=== PATIENT | female | born 1955 | race Caucasian/White ===

== ENCOUNTER → 2019-09-11 | Day surgery (SDC) | payer OTHER ==
--- NOTE | 2019-09-11 10:31 | RAD REPORT ---
EXAM DESCRIPTION: US - Follow Up Breast Axilla Ltd - 09/11/2019 10:14 am CLINICAL HISTORY: R92.8 COMPARISON: Follow Up Breast Axilla Comp dated 09/02/2019 FINDINGS: The patient was initially scheduled for ultrasound-guided core biopsy of the right breast. Real-time radiologist directed sonographic assessment of the area of interest was performed as part o f pre-procedure planning. The small lesion measuring 3 x 3 mm in the 6 o'clock position of the right breast was localized. The lesion appeared to connect with adjacent ductal elements is favored to represent an area of dilated d uctal elements rather than a mass. Given its small size, ultrasound-guided core biopsy of this time w as deferred. A six-month follow-up right breast ultrasound is recommended for the patient. The findings and recommendation were discussed in person in detail with the patient. IMPRESSION: Small area of dilated ducts suspected 6 o'clock right breast warrants six-month follow-u p right breast ultrasound monitoring. Ultrasound-guided core biopsy was deferred at the current time. BI-RAD: 3, probably benign The findings were discussed with Dr. Mckeon 11 a.m. 09/11/2019 by telephone. ResultCode: PB6
== END ==
LOC: DS 09:14
PROVIDERS: ATTEND Family Medicine
DX: R92.8 Other abnormal and inconclusive findings on diagnostic imaging of breast (principal); Z53.8 Procedure and treatment not carried out for other reasons
CPT/HCPCS: 76642

== ENCOUNTER 2021-03-02 08:25 | Day surgery (SDC) | payer OTHER ==
[2021-03-02] MEDS ORDERED: CELECOXIB 100 MG CAPSULE ONE (10:09)
[2021-03-02] MEDS ORDERED: ACETAMINOPHEN 500 MG TAB ONE (10:10)
[2021-03-02] MEDS ORDERED: MIDAZOLAM HCL 2 MG/2 ML INJ ONE (11:46)
[2021-03-02] MEDS ORDERED: propofoL 200 MG/20 ML VIAL IV ONE (11:46)
[2021-03-02] MEDS ORDERED: LIDOCAINE 2% MPF 5 ML VIAL ONE (11:46)
[2021-03-02] MEDS ORDERED: FENTANYL CITR 100 MCG/2 ML ONE (11:46)
[2021-03-02] MEDS ORDERED: ONDANSETRON 4 MG/2 ML VIAL ONE (13:13)
[2021-03-02] MEDS ORDERED: dexAMETHasone 10 MG/ML VIAL ONE (13:13)
[2021-03-02] MEDS ORDERED: NA CHLORIDE 0.9% 1,000 ML ONE (13:33)
[2021-03-02] MEDS ORDERED: LIDOCAINE 1% W/EPI 1:100,000 MDV 20 ML VIAL ONE (13:33)
[2021-03-02] MEDS ORDERED: KETOROLAC 30 MG/ML INJ ONE (14:02)
[2021-03-02 14:14] VITALS: BP 121/81; TEMP 97.2; O2SAT 95
--- NOTE | 2021-03-03 00:22 | OP ---
Date of Procedure: 03/02/2021 Surgeon: Dipika Lane MD Preoperative Diagnosis: Postmenopausal bleeding. Postoperative Diagnosis: Postmenopausal bleeding and thickened endometrial tissue. Procedure Performed: Hysteroscopy, dilatation and curettage. Anesthesia: MAC. Specimens: Endometrial curettings. Complications: No complications. Drains: No drains. Condition: Stable. Findings: Endometrial tissue abnormal, irregular in the cavity, especially posterior lateral wall, l ower part of the endometrial canal. Adequate tissue was sampled. Did not need to use any devices to perform this. This was done with a #0 curette. Indication: The patient is a 65-year-old female who presented with postmenopausal bleeding and trans vaginal ultrasound showed thickened endometrial heterogeneous tissue. I had recommended endometrial sampling to rule out atypia or malignancy and the patient was consented for diagnostic hysteroscopy a nd D and C. If there was a polyp, polypectomy or myomectomy will be performed using the MyoSure Lite . Procedure In Detail: After consenting her, she was brought to the OR, placed in supine fashion on th e operating table. MAC was given. Then, she was placed in a dorsal lithotomy position. Pelvic exam was performed. Uterus was anteflexed. Prep x3 with Betadine was done. Anterior lip was grasped with 2 Allis clamps. Diagnostic SlimLine h ysteroscope was used with 30-degree lens and normal saline to perform a direct hysteroscopy through t he cervical canal into the uterine canal. On endometrial visualization, there was a thickened irregu lar tissue on the left lateral and posterior ibrahim of the endometrial canal. Once the fundus was vis ualized, the scope was pulled out. Endometrial curettings were performed with a #0 curette. The cer vix was dilated to 12-[place]. Adequate tissue was obtained. The specimen was handed for permanent p athology. All instruments were removed. Instrument, needle, and sponge counts were correct at the e nd of the case. The patient tolerated the procedure well. She has 1 week followup appointment for r esults with us. She has been given postop instructions and we will discuss the findings with her sherman hensley. DINAH/NAWAF Voice ID: [id number] Report ID: [id number]
== END 2021-03-02 14:40 | disposition home or self-care (01) ==
LOC: OR 08:25
PROVIDERS: ATTEND Obstetrics & Gynecology
PROC: 0UJD8ZZ Inspection of Uterus and Cervix, Via Natural or Artificial Opening Endoscopic (ICD-10-PCS; 2021-03-02)
PROC: 0UDB7ZX Extraction of Endometrium, Via Natural or Artificial Opening, Diagnostic (ICD-10-PCS; principal; 2021-03-02 09:30)
DX: N95.0 Postmenopausal bleeding (principal); R10.2 Pelvic and perineal pain; N80.9 Endometriosis, unspecified; E78.5 Hyperlipidemia, unspecified; I48.91 Unspecified atrial fibrillation; Z20.822 Contact with and (suspected) exposure to COVID-19
CPT/HCPCS: 58558; 88305; U0002; J2704; J2250; J3010; J7030; J1100; J2405

== ENCOUNTER 2021-06-16 12:59 | Observation (INO) | payer OTHER ==
--- OUTSIDE RECORDS SUMMARY | 2021-06-16 13:03 | XMS REPORT | Continuity of Care Document ---
:1955 Author Organization [facility] t Address [address] [place] [address] Care Team Providers Name Role Phone Pcp Primary Care Physician Unavailable SYSTEM, NOT IN Attending Clinician Unavailable Lupe Alex MD Attending Clinician Lupe Alex MD Attending Clinician LUPE ALEX Attending Clinician Unavailable Vincent ERICKSON Attending Clinician Renee Ambriz CRNA Attending Clinician LUPE ALEX Admitting Clinician Unavailable Payers Payer Name Policy Type Policy Number Effective Date Expiration Date Mena parham AETNA - MGD [id number] [address] [facility] CAREAETNA SELECT 00:00:00 - [facility] l Center [id number] 2020-Present HMO/POS Problems Condition Condition Condition Status Onset Resolution Last Treating Co mments Source Name Details Category Date Date Treatment Clinician Date Uterine Uterine Disease Active [facility] Allergies, Adverse Reactions, Alerts Allergy Allergy Status Severity Reaction(s) Onset Inactive Treating Comm ents Source Name Type Date Date Clinician Latex Propensi Active Swelling Swelling [facility] to 5-13 of lips, [facility] - adverse 00:00: tingling Medical reaction 00 of tongue Cente r s Morphine Drug Active Itching [facility] Intolera 5-13 [facility] - nce 00:00: Medical 00 Center Social History Social Habit Start Date Stop Date Quantity Comments Source History SDID [facility] - Alcohol Std Drinks Medica l Center History [facility] - Alcohol Binge Medical Candace ter Sex Assigned At [facility] kes - Medical Center Tobacco use and 2021-04-02 2021-04-[address] [facility] kes - exposure 00:00:00 00:00:00 [facility] Alcohol intake 2021-04-02 2021-04-[address] [facility] - 00:00:00 00:00:00 non-drinker Medical Cente r (finding) History SDOH 2021-03-25 2021-03-[address] [facility] - Alcohol Frequency 00:00:00 00:00:00 Medical [place] Smoking Status Start Date Stop Date Source [facility] [place] Medications Ordered Filled Start Stop Current Ordering Indication Dosage Frequency Signature Comments Components Source Medication Medication Date Date Medication? Clinician (SIG) Name Name atenoloL Yes 50mg Q.5D Take [address] (TENORMIN) 5-20 by mouth 2 Taryn es - 25 MG 21:07: (two) Medical tablet 02 times Center daily. aspirin 81 Yes 81mg QD Take [address] MG EC 5-20 by mouth [facility] - tablet 21:07: daily. Medical 02 Center cholecalcif Yes Take by [facility], 5-20 mouth. [facility] - vitamin D3, 21:07: Medica l (Decara) 02 Center 625 mcg (25,000 unit) Cap atorvastati Yes 40mg QD Take [address] n (LIPITOR) 5-20 by mouth Luke s - 40 MG 21:07: daily. Medical tablet 02 Center multivitami Yes 1{capsu QD Take [address] n capsule 5-20 le} capsule by Luke s - 21:07: mouth Medical 02 daily. [place] grape seed Yes Take by [facility] extract 5-20 mouth. [facility] - (GRAPE SEED 21:07: Medica l ORAL) 02 Center ondansetron Yes 4mg Take 1 [facility] (ZOFRAN) 4 5-20 tablet (4 [facility] - MG tablet 00:00: mg total) Med ical 00 by mouth 3 Center (three) times daily as needed for Nausea. Vital Signs Vital Name Observation Time Observation Value Comments Source Systolic blood 2021-04-01 19:45:00 121 mm[Hg] [facility] Diastolic blood 2021-04-01 19:45:00 69 mm[Hg] [facility] Heart rate 2021-04-01 19:45:00 81 /min [facility] Body temperature 2021-04-01 19:45:00 36.28 [facility] Respiratory rate 2021-04-01 19:45:00 14 /min [facility] Oxygen saturation in 2021-04-01 19:45:00 97 /min [facility] Arterial blood by Medical Ce nter Pulse oximetry Body height 2021-04-01 08:00:00 167.6 cm [facility] Body weight 2021-04-01 08:00:00 68.2 kg [facility] BMI 2021-04-01 08:00:00 24.27 kg/m2 [facility] Procedures Procedure Date / Time Performing Clinician Source Performed TISSUE EXAM 2021-04-01 13[facility]06[facility],TOTAL 2021-04-01 11:40:00 [facility] es - HYSTERECTOMY [facility] SALPINGOOPHORECTOMY 2021-04-01 11:40:00 [facility] DISSECTION,LYMPH NODE PELVIC 2021-04-01 11:40:00 [facility] ABORH, MANUAL 2021-04-01 09:18:00 [facility] BUN AND CREATININE W/RATIO 2021-03-29 14:47:00 Dez Bobby [facility] ELECTROLYTE PANEL 2021-03-29 14:47:00 Dez Bobby [facility] HEMOGLOBIN 2021-03-29 14:47:00 Dez Bobby [facility] TYPE AND SCREEN, AUTOMATED 2021-03-29 14:47:00 Dez Bobby [facility] CT ABDOMEN/PELVIS WITH IV 2021-03-29 09:27:00 Matilda Alex [facility] - CONTRAST [facility] POCT-CREATININE 2021-03-29 08:59:00 Matilda Alex [facility] Plan of Care Planned Activity Planned Date Details Comments Source Future Scheduled 2021-07-[address] [facility] - Test 00:00:00 (#1) [code = [facility] INFLUENZA VACCINE (#1)] Future Scheduled 2020-11-[address] [facility] - Test 00:00:00 (12+) [code = [facility] DEPRESSION SCREENING (12+)] Future Scheduled 2007 SHINGLES VACCINES ([address] [facility] - Test 00:00:00 of 2) [code = [facility] SHINGLES VACCINES (1 of 2)] Future Scheduled [address] [facility] - Test 00:00:00 (procedure) [code = [facility] 33060197] Future Scheduled 1976 DTAP/TDAP/TD VACCINES [facility] Test 00:00:00 (1 - Tdap) [code = Medical C enter DTAP/TDAP/TD VACCINES (1 - Tdap)] Future Scheduled 1975 HEPATITIS C [facility]CRE[facility]ING [facility] Test 00:00:00 [code = HEPATITIS C [facility] SCREENING] Future Scheduled 1969 COVID-19 VACCINE (1) [facility] - Test 00:00:00 [code = COVID-[address] VACCINE (1)] Future Scheduled [address] [facility] - Test 00:00:00 [facility] breast (procedure) [code = 249482456] Future Scheduled [address] [facility] - Test 00:00:00 malignant neoplasm of Medica l Center colon (procedure) [code = 535173679] Encounters Start End Encounter Admission Attending Care Care Encounter Source Date/Time Date/Time Type Type Clinicians Facility Department ID 2021-03-09 Outpatient SYSTEM, [facility] [id number] 09:15:54 PROVIDER Durga shaver 2021-04-19 2021-04-19 [facility] [id number] 08:36:47 09:06:47 Visit Matilda Grossman [id number] Lupe [id number] Results Test Description Test Time Test Comments Results Result Comments Source Tissue Exam 2021-04-20 10:34:00 Test Item Value Reference Range Interpretation Comme nts Case Report (test code = 104) Surgical Pathology Report Case: [id number] Authorizing Provider: Matilda Alex, Collected: 04/01/2021 01:06 PM Ordering Location: [facility] PERIOPERATIVE Received: 04/01/2021 01:24 PM SERVICES Pathologist: Lore Esquivel MD Specimen: Uterus w/Bilateral Fallopian Tubes, Ovaries, & Cervix ADDENDUM (test code = 3381) m3yxkKUpAAZmqZR8KlKiFJKpq8frn4AqsGTmfJE cWVwmzHHrohIylz05xBB8qE73GP9wCQBtLsH6XM PjyiQ3Pdj6HOOtZJVhcGMeE942n5jct6klgdUgg SW2lDjcZTZbGMA0MgOkKIO8ZMO3SAd4eNTrKqLg fByvIJyrHOO1EtBaZUi5oBRpSrPggRs2BFWwKMF 7ATa0IYz2aSL5VLMsyUd8UoQqVTH7VsreYAd4qW d8AAGglTy9LgTiWDS1VMScSAUphPlutZ0vZbInY KTZzYpxJWSmANVgGQBnQRunXAyzf3TdHNN8chOo BSOqaiKmfBqeFYVvk3OklSWxv8QceK2efC8lh7Z cvA4eDuSzvURjWKImrhZVmF30kp2mqSA3z6MzGJ 5bL3TiBQG4FKichhWhg9EhwWuhqDN6V0nipsPcM GexYInjzjGhPBNfCRYqikJyl5cok8poSgRtoRLw DWSjopJyq8LwgB2blCOdSN5AGPEtKHGBnqRzY8N ruv28W2uwNNPqRQyehaKdy6hxswltJLWvcGNvCV XTF4ifMP7gAE01IGE0OD65A8diJFDbVXzcucXed 2lvblxwYXIgTVNINiAtIEludGFjdCBudWNsZWFy VXR5fLRxz4Vah61ajJObIYNXBlUcBUDCedRnM6Z iewWfsWPaorQgbAHyHTJvnC0sQCTuyjKIXUXyD1 BwiV5mJZ0wjn8rn0RuSRK1dVUkqDnoz4UpX4qvf WYxwaTgEAEsvuWpy7fwz2e3dROrbfSlU9VqhqLk nAIropOjmWBiLBNvdM0aBIUeilciZNHafWTsQDV nQNbOWJusqTHcyHMtsCQ2dK0iNZBuankviUW6WL oibO14GLTckXryQOJrNXGwGL4oYOvym5Dqa7Age xGzwURianIqoZGcVHSykK2qVO1sRL0HMrIzwp28 LPyylcrijQ34GQCge7LmXyjefZH4ER3lVX0uQ3U vn2D5HVvquEZvSLwia7WcJzpkmII8KUhlF0xgSI 2EIG0XVCdjEMHzyOlqVOBlYKkggS4eOUkdTJnuu qDtRQFkRKS7T7UthEuulwNmfC9qaBvpQSBtr8Mj IElIQyBpbnRlcnByZXRhdGlvbnMuIFRoZXNlIHJ hn6NjhXRfl5nxjIebZD6xwYTgSZHel51whLEvwv RvARywHRmok6ixmKhspzejKU2tVREwdR7tX6MwF XYiwpZvuNC2pC0vJUuuzAagB2RhCFDuTaDdz6Ei z6LjtF8kGLzeOONmU36oaBOvFSAgRJNoOHTzv8E wwfD6vFIcdfJtNAMzz6ZyN9WsvAohaxTbuZVbzB jeKs4ulNQdXHEehnkxEWQpKCSQr3HruuK5QZm0G zQyIHggMSwgODgzNDEgeCAzIFxwYXJ9 DIAGNOSIS (test code = 3220) q8fnoSRvTJTss0mqUJCfgYJzQfOhIiJlTbKmRu p cdWMxIHtccnRmMVxlcGljOTIwMlxhbnNpXHNwbH JhF4FilyezJOguQC3sLJ8dmFpqqEPjmVWqQLEyG lErz7fry367xFCem0ppCFHUagrhrTh6yMbmQ78m e3Y7WykcI60vaPVgAXyjoGJvypymhoBfOSPPWIL VUyBXSVRIIENFUlZJWCBBTkQgQklMQVRFUkFMIE PWFTfSIBuDEyHBWXTAKbVOSfUbO9TAIxtCBjpyS O5TDYpqAMQWK37BAcHGOEeOC2CRPmRZFG8MAJLP MZHGOLMACGTQGDZCHQLDRLbJOQ6USy1QL7LMP5K SN9CZZDv7BNZpjdk9JHUgLOIVFnHJVWWbxzs1JQ BsFXEdYS1gZS1KX65IGPUOLLxhWG3TH82SRRMGH 6jOKPHBNzVRMa3RIBbbXgoLYwJRJfCRQNPgOEZm bxc7OPBpgDYfVZ1cVKCIT4YaY3ptAAprNL46URi gNCBYIDAuNiBDTVxwYXJcdGFiXHRhYiAtIERFUF YHFE5HTU3AY48GZGQWZKcfCE3CLCKHE042PMOoT Q7xL1KbFYCpHS7ooBDfCCoxJjOiPHHnVuWeCUvy mxzhZTJuTL5BWVkOAUFWC9SLU6ZGIUPKSOhVUkS ZOF9QOUlHRW5AFFGWSJYsUEWttgxvfWYnFZHuFY 9aNVELK71RF94TQGJJAUGLJKQAH4RBDIatWZDdi GkwXGxpbjAgICAgICAgICAgICAgICAgICAtIFVO RuZXVWZXXWAKDUFVZVPHLK0AVZAOPq1QRCGbaRJ yXHBhcmRcdGFiIENFUlZJWFxwYXJcdGFiICAgIC TaLYJVXbOJGRXGZR4HDDRgQI8VKBDFMJ5ARDLWJ FLZBjBnEOUqdef8UMExJzvOIVQhPJ1CNFbCLjMf C2BHCngMQkKdgZUfVYIjKqZdVOUoJU9TNPLASH1 SIFBSRVNFTlQgXHBhciAgICAgICAgICAgICAgIC FoFSNTUVpQPHULATNsY45IJYMZEEXGBarRGK6ET MpZUDzIFwBcD9IQXkjwEAOkqly4XCJfEqfVIQFl UaGGKV5OYBZKYRFMMiHcxDToKBQxIQQtFVWwTMW rBVGqWFSoQQ5HUNPNUE6TFJFJSFVPTyGgOWHbhc AgICAgICAgICAgICAgICAgLSBQQVJBVFVCQUwgQ 4zFMKsaCAOkZmx7UrTiCZNTRONFXAaXY3FCPF5u FTOUNCYngOJgULYrNH2uAb5tFRCQV8PfVXKCZ5Z AJVysHHOuNCDyXIWKMDLVBIPWNFtiGT9DG88BMJ RSW4NTXzJxGOOjilagsTOvpNNvxJwtwtGcRMohk 5RdEBevRADmYY1xrTgoYTViAJ8sNNAhX5sdsO1l dzz3HqAiOWPmXeO5ZVHnewT4Knh3QEVlNEdvx0g cp2BpMMOzTQx2pGzkNgZzTWXnj1dvrlHfHaAqML NbBBJiUROnmRSeZ686n4vhx8jiiwFstOV8OFEwU WJ2TTsxhmOikmD5YXhzbFZtRxU0IKwvlgSgJUpf xfWqwwScMfk8XSKbZ124AIZ2sRomt4obVUW5YUL nHQTxEtKoLa8rsUPpD794LDGwXNYREZJioPq6AS LbduRbfeFrxTSTi666X434a2taNFKfrxJyzXoEm ftwo8zpL391LXXbdAEiuoRlDfPvALBviRNimJI8 SGCoST6lenmhAOyaZKovWHYscdQ8WXJslOHwQ7H wPYIsKT8nbixxKJA1EMumEYFnWHW4BmTsGGAmz6 Mgbul8KuZjay0ezk03LJR3x8BysJccXPU2XMN6M wCoYd1peQCbRPOkZK4eFiIszSZbNEArqb00jQle SXibWXV4WGKyegZku4Oop3jzApUchjGgT2hlL3Y lCXCbQJTiFUHuJiDnvmNwg3Nzz9IgrVEmiDq4o0 blKBRgPZNgyIyxj7spZVV7JJWbzVIhJ8tfhI4wI QTkKN2usbkei3kuLHgoJGwxYLFykMC1wcI0KNCe sPFcI9RwqF9bADBcSRbhORWurzc3ZsKrIo7pmMV yeTcyMFxzYmtwYWdlXHBnbmNvbnRccGduZGVjXH BsYWluXHBsYWluXGYwXGZzMjRccWxcbGFuZzEwM eOvoFjqoCohHKqtRzOsLHYpHHirN8zmNtCdUzXn Vmg8OLXegNWeBJYkYmw8DPQclBAuCULGkKmlfT4 iXKPouTvknT7thCT0JWKhxaSwiFCUdI2fEGRQrL 4mNdP5RqZhXiT2IYB2ZVHqeVXejZ2= SYNOPTIC REPORT (test code = 71) ENDOMETRIUM (ENDOMETRIUM: HYSTERE CTOMY - All Specimens) 8th Edition - Protocol posted: 01/08/2020 SPECIMEN Procedure: Total hysterectomy and bilateral salpingo-oophorectomy Specimen Integrity: Intact TUMOR Tumor Site: Endometrium Histologic Type: Endometrioid carcinoma, NOS Histologic Grade: FIGO grade 2 Tumor Size: Greatest Dimension (Centimeters): 4.4 cm Additional Dimension (Centimeters): 4 cm Additional Dimension (Centimeters): 0.6 cm Myometrial Invasion: Present Depth of Myometrial Invasion (Millimeters): 2 mm Myometrial Thickness (Millimeters): 13 mm Percentage of Myometrial Invasion: 15 % Adenomyosis: Not identified Uterine Serosa Involvement: Not identified Lower Uterine Segment Involvement: Not identified Cervical Stromal Involvement: Not identified Other Tissue / Organ Involvement: Not identified Peritoneal Ascitic Fluid: Not submitted / unknown Lymphovascular Invasion: Not identified MARGINS LYMPH NODES Regional Lymph Nodes: No lymph nodes submitted or found PATHOLOGIC STAGE CLASSIFICATION (pTNM, AJCC 8th Edition) Primary Tumor (pT): pT1a Regional Lymph Nodes (pN): pNX FIGO STAGE FIGO Stage: IA CPT Code(s) (test code = 3357) a0bsrIJcVMIisZJ2DhRtFOWvb1gfr0AddTCb cGF nPGbuiORwanEpze41wPI2uL43HN6eOMYrJkL1NX LxbfP5Huc1GGNsDFCpkBIxR060z4qub5qolgRxf GJ9rJieJXAwBCDvFUakBNKnDhEcTHosNAlhHOj7 JkZ5ZGT5CLRzZBhhKKivLCJmcMGwxF== SPECIMEN SOURCE (test code = 3377) c8togFYrYTDlkKE2XzWkASUdi9pta6Jy dHBncGF mKFsbvZEsquDyqm51pOR2iT39GJ6yIOPuYtS6UT UuhaZ0Ezx5QHEnZRFmgSOuH115n7dxa7ihlcCkz MB0rOanHQSeFEKeBDdoNWQfMrGiKM1nKGR3LTA7 ngvnA0Dbprz2UVTgcAnagXVcANloaFRgRXHlNV2 iVE82GJQvJDHszSOckT== GROSS DESCRIPTION (test code = 3366) z5adfQBkQROelGG1TtCdROEjv4mjt1 BsdHBncGF iLQbriNBaekOruh75xHX2qV45ZW2nJLNfAwI4KD SrfzH6Bgx7QGGuBAGsvRCjH397q6yss2mcxfVfc OY9pHdgURMtJIMwKJxmNHHrFzUfNE5cIFQqT3Zu jsYtPHCfPHRuTXGtwmLaodBcWM6oTLPgnYa8POC atl21TI8aV64ts3SntKZ3qZ5qUCmiQsAjHCWsb1 f8kLPzARHcVN25Y6NncyQsPIptwIKhtQIjpAGyN FKlzhQtwrLwWgXuYNDhXSXvO3Lev2Nlu64yddTb YmVyLCAidXRlcnVzIHdpdGggYmlsYXRlcmFsIGZ peSgjoBrtzjV4sUQqmhgyt1DctwychpZyplKwH6 Kiaxb1MwGyfnJaRRF1SztpDFL1PNRjLAE1RRZmM 88wqDrddMFfEPX1u136WNItGQLhxDXvUGnnoTss YTC8TDQsRBSbQ6Azetc1BJRgvUpshWMrPVnitJI dRZApRL0yCV93QEDvFMIqBYOcPQLpUNL4fYkckW Xnz2FoOGPpRtL2YYBoyLCvLAZlNKWuGFE6sAUuf 9EbpDUbrs46fsXkIY5dVUYuUNJzqXGmnrWfwJSu ZXRlciwgbGVmdCBvdmFyeSBpcyAzLjUgeCAyIHg cYD00TGPgNTNjGRO3NWZzyQbloKbxndD4dXCsGP lwPZHxjEAcFiEiY54uDBEvcJejcMJtbxKxrFKyj vCzLJhdYrD1APGpU02yBTXxZ4z6UTRknDtzyPrm vyU1kGIqSHvnQKWxzJTpMnTaM42fJZwbzaDgrHh uFEMReTNgrKHhacctWSLxUOFsy0TxrHIkbPUtNA WudvooKZ3rWDKfm000cXhpfFnfEQIqjtNlsNOqv nWsguXgN8R0mPFryAafBV2hRHIyVDWusBSphC0l jeYajbKhqBHktLYpTAB2chFnXSBgETsgZNGje15 rF2VsAV47fnU6UQ4iVLYkuf6qjCCgdoTwp5Thgk azHgB5nUNbSA26uJGmTMIfaYWwhE7sVIQyLTNbb 3B6LEKwq7AxCV6as39usSUwfH5rWNPkLGN8XNEw tVSrCcZvG96nACQ5fPTdmLDgzvSvi5SuEP3qsCI psHLeZJCntM7zxI35s6o7YZGos8rbpzYim8ruvr G6sKChwY6uRFBjG99sfdTie7NyS6Jsfng5RWCzp cRtdR2ir8wpyClobM55TURwsoR2lFSuy7KlBFQl iSMzOTifmCjuaGL6bwp8qR0sWDadDDTnr9Fdj3D ryYepBK38z28azXPpcK9fyFSaOXSgYEMrwOG7kF ljaykgdGFuLXBpbmsgcnViYmVyeSBhbmQgcmVtY LIjFXDwWHQyf9RoRVN1XHlaSVExqzQ5lLLmlwmj HFPudPZtMIUmlc2si9mngaftQTUdz8L1sDEtaB0 bgYekVAFmzYGejU0dGJ61b87dsRFdnR9eOQNohO XcWKlsJR14XQRrBL6jKTZndxfnFRGiDCipSMY9e zBqT4Zmy3SplKybBXXqH8e4TO74DTL0WDfxJZHb co50UKghb9xqUV6qUEUaraSwFMWeNCAzWQghjAv gKYT0zAZswMQrKVSkAEudAWLtqo30JQcpl6ptyJ 0ldEBpZMfisVOzLRKsykQquJDmetK2YPXrCGCke 60rOSHoEHWcQQUklYbklDLfUoCxUBapKNV9caOk U8Mlm8KcjRukTBvxWnZgu6CctxzvvEBgbDJrKOf hmKsgsqzqz68fu3FqWMNpcJCmv1GxTgKkCNVhrd CiZW6wzqmnMnrqAFOicmF4GD6qgVXquB93GOZpk OPtVfrzIGQdy4M7dCPqFWHvoFFyGHkwWD58KERo EX5abZgyZLcvbQ2qLBNtVMNbWRAwy8WeEKC7njL wX5Qct3FbkOelLVEaI5e3XPPzhTygkInibdT5kU OiSIBmu9HuTHbeZWTejGqxIHYwqLciIXFsvAO4T IxwfUWpKkpjmIQdZrPuT12bDxDnPMcmXXV7wlJf Z0Jmk6TrbIhyKNFtfGJsbXMrmUOvyB8jTV9brhr sRwrjFKR9yAKpcJBuAMOebmVmSKIfMQdivESbCR W7jN1fHMJlzZ6gsjR6BPGlPSQpyfUspUEsd4AcQ P5xTNMskHmmzR2ytgOebUPmAO0aBKLEnPMxe6Ph k6WkfRYehHZkIATsMQ1zRGMhFCFhRQZ4RJEncGl gqBweyjK2nAWrXUMkg6MrSUslJAYhjs4aJRVsm6 8rgKCun1YjiWMhqQXaY9wbrKTvCCB2PVWjfOIeJ pYvV04jGNZ2oFMbJ8G6EAW1btWtX8Ukv4AghZnl TSScnNRrmGHwxRBzoB2qSV0hxsuxUvchBVXypS0 zknEnZcS6iOEfGvupXmBlIYxzCX8yAT7yXCHfwN pupPhbmfG0rLFfTHnsAZWyjNR8WGVbWR4oCFFvr FsjAIH9sCZsFPKch42mRhtnrV3sQNRtdeUMjvcl T55zSIxymTtlXKZHinRpwrpvgz8GuQYpENllkvV lMG2umXCzgP1nKUSiWPXeNCjzxrQvfPvqVMBRRI H3cV2sJCUdGSM5DTHaonZULuOHOMdvGQ65CFXvk 2DjMO7we836q88pxMNlfE7mUQDcwUZdw4PmfLF7 jINgIZh8piCiooQbqPPcROLqTCL7lG8epJZmAJ5 yAJDiDEwldBJtLOBuIDV3JzBPjnMvyfjnirEbw2 7riTX6FUpqRNvtEL2hs965g93dpGUqhR7pTZZzB 0Kpt94hKYC3CEZ6dB4aNZgccDqlZ5Lxprv9DAdc YOBzFCXrosJRFe4QCIkqYL22RGPpa4GbwF1yT5o 0bVOxcfPfFTDlPI5sjA8pIEPjtWOnZUCjEEX9sM 9lgaBxdSSgoDcpXcE7zXMsHJSaioLdoAJvrrBWW klbRJDhAOEcTTRfEpkkUT7jkRSlaO8oXBfpglai mHXloU7zkTEmlbTrzInjdMR1mky8pBuqe1ZqyHl xteEilLNhbFdnByT0sWOtBLUvkmSwmNPgsoNDGO OqhDBoRIMeCJ1OXRt7FMZot8KlnexuggWas54xd LA3WJpkAEujQK1qr448e87ddLBwrS0cICBaE1Qc a21eTAQljOLagHhtTjX2fOIwOMFbmdYcjBCkvfH lDOS4NDFlvmQQIMu4HYCrqAYgvW8yAATxTN5qrJ 1lEUZwjMXcKGlgkWegvEgzXWljj4RqVYCjxy9sp AdjFCXaENFpAIUzbxHowMe4AHfaALToQPW8BcFJ uMfweHTnaeWlzSoosfUbrzGiWP67EHMyqyMpcVB pKXOuZSdcXOLisKEjxiLxdVwmpuGutxSqJW54ZT LtucPvSj4ooG12nE6rJFjxY0u8UDYnE2IjR4nxc GTdxZidbehnVSJeZKOuWmKWcNutnWZfrQ3ytxuh ZRnoATg0jsQcgxHqakE4bHAgqgLhkaHxzjBwTT8 3REOdiyLcM2Rej9Urw4EqwMcwdoUwApDrDVpjl4 XzNE0joYUkNChfJLQeRFZtDPVlVJklHENxlLYmx O6wunvxINewJRt1lfLpxaZvzyI8eXZvrbUshxRn ziAeCB07LKMiawPoL4Gjy6Cox1XzvOmftoZxUpP tUZxym8WgZU2caNMyJEGamL0mpA5dyEOzBVG5kZ EgvGHxl3TdbTRiuYYfZ9sgfVdyyZDdTOFhwmwkN VFcE5pncsyhUTKur7VvgJqcDOJmpXXnMADtgysd lX0mCFGfpc7= INTRAOPERATIVE CONSULTATION (test code = [id number] QY7ZvZvCDXee4pny4TnxMPzsDD 9439) oQLkuaTLgqyUirk18pKX9mI24TU7oPGRoUeM7PE JshrS4Hxo3LFHxPLEchFXlI416b7xzu0hdsiCdm RB7oPabQIPaBDMnOBxaHYLrPpIyYM7kPRDTTXIG EtvkK9KJQeoSBPJBOPlLFNLSZFrpFRCFQPBdIT6 ZZZ1JQRALMZHzAROOPKVTPOBSJR0YQR8VYVNVHQ OJTJMTH4HFGXxkUX5WRTERFOBGFBGLTOXZYQnJY J7QLg0EC4ATA2YLT9EOSAb0OMquxtBlVZsEG3FT EOIZXC9QSD1IHLHSLEkHRLBVOoVEISRPHnlEWWI NKPHIQUAQTBVGP8CHKW7ZBVANAMFEMyRwEN0eED 2PJOSVSAELCDSlGAKHIwNEXN4XDDXACLKNYOWTT p8HGRFUZOLWKnoZNDRTTPaPZaRXZJ2TOaTyU06B LTQGUn4CL79YVKpuEl0ZUDdZBGONEe5QH7aFIYT IU6qYR0POTaQqY7DpCASEO70IC57RATTnnaRiCQ tGZk2DY49SVAZTOZjZAONZJkDEBf1ZVPSFLgRNP HQPLovVQYCTSSKXU7FNRsNVBq3PPFBZKPEVSHIN WUTNDnjPIXKFIE2WU85SXNQICBmbVJ4KFVVVY66 tIP5HGFCINj9NV71SWIkdLIFSL22XE44OHMUkkb jvJWRzBjQvf4E2HOPeAnxvJLDeW7YvDO9xBDYvJ E1mlOQcBBXfWGI5VAU5WYMoHD6cgS4gJ3NnYjGt cGFyfQ== MICROSCOPIC DESCRIPTION (test code = [id number] [place] [id number]) vWKyydSDbcaMdxj09zSP7mX25LU7cEYCvIxH1RJ KumfB8Jhu4KSDfOIFhcEWxL881f3yvs2lpjaPpi AC7lSycUTJuKWBeRVswRPVhCcDiYUDcVc0rgPDz LlxwYXJ9 [facility] [id number] 10:34:00Surgical Pathology Report Case: [id number] Authorizing Provider: Matilda Alex, Collected: 04/01/2021 01:06 PM OrderingLocation: [facility] Received: 04/01/2021 01:24 PM SERVICES Pathologist: Lore Esquivel MD Specimen: Uterus w/Bilateral Fallopian Tubes, Ovaries, & Cervix This addendum isissued to report the results of immunostains. Immunohistochemical stains for mismatch repair genes are as follows: MLH1 - Intact nuclear expressionMSH2 - Intact nuclear expressionMSH6 - Intact nuclear e xpressionPMS2 - Intact nuclear expressionBackground nonneoplastic tissue/internal control with intact nuclear expressionIHC InterpretationNo loss of nuclear expression of MMR proteins: low probability of microsatellite instability-high (MSI-H)There are exceptions to the above IHC interpretations. These results should not be considered in isolation, and clinical correlation with genetic counseling is recommended to assess the need for germline testing.PBCodes : 13111 x 1, 16698 x 3 Addendum electronically signed by Lore Esquivel MD on 04/20/2021 at 10:34 AMUTERUS WITH CERVIX AND BILATERAL FALL OPIAN TUBES AND OVARIES, TOTAL ABDOMINAL HYSTERECTOMY WITH BILATERAL SALPINGO- OOPHORECTOMY: UTERUS - ENDOMETRIAL ENDOMETRIOID CARCINOMA, FIGO GRADE 2 - TUMOR SIZE: 4.4 X 4 X 0.6 CM - DEPTH OF MYOMETRIAL INVASION: 2 MM OF 13 MM- NO LYMPHOVASCULAR INVASION IDENTIFIED - LEIOMYOMA, SUBMUCOSAL - UNREMARKABLE UTERINE SEROSA CERVIX - PARAKERATOSIS, NO TUMOR PRESENT RIGHT ANDLEFT OVARIES - NO TUMOR PRESENT - CALCIFIED CORPUS ALBICANS IN LEFT OVARY RIGHTFALLOPIAN TUBE - NO TUMOR PRESENT - PARATUBAL CYSTLEFT FALLOPIAN TUBE - NO TUMOR PRESENT - PARATUBAL ENDOMETRIOSIS Signing Pathologist Direct Phone Line: [phone] ENDOMETRIUM (ENDOMETRIUM: HYSTERECTOMY - All Specimens)8th Edition - Protocol posted: 01/08/2020SPECIMEN Procedure: Total hysterectomy and bilateral salpingo-oophorectomy Specimen Integrity: Intact TUMOR Tumor Site: Endometrium Histologic Type: Endometrioid carcinoma, NOS Histologic Grade: FIGO grade 2 Tumor Size: Greatest Dimension (Centimeters): 4.4 cm Additional Dimension (Centimeters): 4 cm Additional Dimension (Centimeters): 0.6 cm Myometrial Invasion: Present Depth of Myometrial Invasion (Millimeters): 2 mm Myometrial Thickness (Millimeters): 13 mm Percentage of Myometrial Invasion: 15 % Adenomyosis: Not identified Uterine Serosa Involvement: Not identified Lower Uterine Segment Involvement: Not identified CervicalStromal Involvement: Not identified Other Tissue / Organ Involvement: Not identified Peritoneal Ascitic Fluid: Not submitted / unknown Lymphovascular Invasion: Not identified MARGINSLYMPH NODES Regional Lymph Nodes: No lymph nodes submitted or found PATHOLOGIC STAGE CLASSIFICATION (pTNM, AJCC 8th Edition) Primary Tumor (pT): pT1a Regional Lymph Nodes (pN): pNX FIGO STAGE FIGO Stage: [place] [address], [address], [address], 54237D. Uterus, cervix, bilateral tubes and ovariesA. Received fresh for intraoperative frozen consultation labeled with patient's name, medical recordnumber and accession number, "uterus with bilateral fallopian tubes, ovaries and cervix" is a 64g, 8x 6.5 x 3 cm hysterectomy specimen with attached cervix, bilateral tubes and ovaries, the cervix measures 3 x 3 x 3 cm and the os is round and 0.5 cm in diameter, left ovary is 3.5 x 2 x 1.5 cm, left fallopian tube is 5 x 0.5 cm, right ovary is 3 x 2 x 1 cm, right fallopian tube is 5 x 0.5 cm.The uterine serosa is ramsey-pink and smooth, the cervix is and cauterized. The specimen is bivalved to reveala homogeneous ramsey, firm mass covering the entire anterior and posterior endometrium (4.4 x 4 x 0.6 cm), the mass does not appear to involve lower lower uterine segment or cervix, and possibly invades the superficial myometrium. The rest of the myometrium is (1.5 cm thick) ramsey-pink rubbery and remarkable for 1 well-circumscribed ramsey firm whorled nodule in the anterior myometrium (1 x 1 x 0.6 cm). The surface of the right ovary is ramsey-yellow and unremarkable, the cut surface is ramsey-yellow to ramsey-white, no discrete lesions are identified. The surface of the left ovary is ramsey-yellow, smooth, cut surfac e is remarkable for ramsey-yellow calcified nodule (1 x 1 x 0.8 cm).The serosal surface of the right fallopian tube displays fluid-filled cyst (by 0.8 x 0.4 cm). The surface of the fimbria is unremarkable, the tube is serially sectioned to reveal ramsey mucosa and a pinpoint lumen. The serosal surface of the left fallopian tube displays ramsey-maroon hemorrhagic cyst (1 x 1 x 0.5 cm), the cut surface of thefimbria is unremarkable, lumen of the fimbrial end of fallopian tube is dilated and filled with blood.Ink code:Odnqulqs-FenkLiqfuvqkc-yitswWuoiuby code:FS A1: Anterior endomyometrium, guest services representative (to include the whorled nodule)A2-A5: Anterior longitudinal endomyometrium, sections starting with cervix in H9R4-L0: Anterior longitudinal endomyometrium, sections starting with cervix in [id number]-Y60: Posterior longitudinal endomyometrium, section starting with cervix in [id number]: Posterior longitudinalendomyometrium, sectioned starting with cervix in a 14A18: Anterior endomyometrium with the whorled nodule, firiauugnvjmpgO41: Right ovary, qstiofuebfhceqZ12: Left ovary, guest services representative following swmyhozinhofxtzfcfnqA14: Right fimbria in its entirety and guest services representative cross-section of fallopian [id number]-Y13: Left fimbria in its entirety and guest services representative cross-section of fallopian tube (to include the hemorrhagic cyst)Cheryl Key MDA. UTERUS, CERVIX, BILATERAL TUBES AND OVARIES, TOTAL ABDOMINAL HYSTERECTOMY AND BILATERAL SALPINGO-OOPHORECTOMY:-GROSS TUMOR ON ENTIRE ENDOMETRIAL SURFACE, DOES NOT EXTEND TO MORE THAN 50% OF MYOMETRIUM-FAVOR SUPERFICIAL INVASION. ONE SUBMUCOSAL NODULE, GROSSLY SUGGESTIVE OF LEIOMYOMA-MICROSCOPICALLY CONFIRMED ENDOMETRIAL ADENOCARCINOMA WITH SUPERFICIAL MYOMETRIAL INVASION AND SUBMUCOSAL LEIOMYOMAReported by on 01 Apr 2021 at 1:56 PM to OR#24Performed.ABORH, [id number] 09:47:00 Test Item Value Reference Range Interpretation Comments ABO Grouping (test code = 2588) A Rh Factor (test code = 2589) POS [facility] screen, [id number] 16:03:00 Test Item Value Reference Range Interpretation Comments ABO/RH AUTOMATED (BEAKER) (test A POSITIVE code = 2260) Ab Scrn (test code = 890-4) NEGATIVE [facility] HospitalElectrolytes2021-05-17 15:23:00 Test Item Value Reference Range Interpretation Comments Sodium (test code = 142 meq/L 034-852 4206-2) Potassium (test code = 4.2 meq/L 3.5-5.1 Speci men 2823-3) slightly hemolyzed Chloride (test code = 105 meq/L 98-107 5-0) CO2 (test code = 27 meq/L 22-29 2027-9) EDMUND (test code = EDMUND) Extension Service Supervisor ID - DB Lab Interpretation Normal (test code = 47187-5) [facility] HospitalBUN and [id number] 15:23:00 Test Item Value Reference Range Interpretation Comments BUN (test code = 13 mg/dL - 3094-0) Creatinine (test 0.87 mg/dL 0.57-1.25 code = 2160-0) BUN/Creatinine 15 For a normal ratio (test code = individua l on a 3097-3) normal diet, th e reference inter deyanira for the mass ra erick ranges between 12:1 and 20:1 ( BUN in mg/dL/creatinin e in mg/dL) EGFR (test code = 66 mL/min/1.[place] [address]-0) NOT ACCURATE CREATININE CLEARANCE IN PREDICTING GLOMERULAR FILTRATION RATE . ESTIMATED GFR I S NOT APPLICABLE FOR DIALYSIS PATIEN TS. EDMUND (test code = Extension Service Supervisor ID - DB EDMUND) [facility] HospitalB[facility] AND CREATININE [id number] 15:23:00 Test Item Value Reference Range Interpretation Comments BLOOD UREA NITROGEN 13 mg/dL - (BEAKER) (test code = 354) CREATININE (BEAKER) 0.87 mg/dL 0.57-1.25 (test code = 358) BUN/CREAT RATIO 15 For a normal (BEAKER) (test code individu al on a = 0157193302) normal diet, t he reference inter deyanira for the mass ra erick ranges between 12:1 and 20:1 (BUN i n mg/dL/creatinin e in mg/dL) EGFR (BEAKER) (test 66 mL/min/1.73 ESTIMA SUJATA GFR IS code = 1092) sq m NOT ACCURATE CREATININE CLEARANCE IN PREDICTING GLOMERULAR FILTRATION RATE . ESTIMATED GFR I S NOT APPLICABLE FOR DIALYSIS PATIEN TS. Extension Service Supervisor ID - [id number] 15:23:00 Test Item Value Reference Range Interpretation Comments SODIUM (BEAKER) (test 142 meq/L 136-145 code = 381) POTASSIUM (BEAKER) 4.2 meq/L 3.5-5.1 Specimen slightly (test code = 379) hemolyzed CHLORIDE (BEAKER) 105 meq/L 98-107 (test code = 382) CO2 (BEAKER) (test 27 meq/L 22-29 code = 355) Extension Service Supervisor ID - [id number] 15:06:00 Test Item Value Reference Range Interpretation Comments Hemoglobin (test code 14.1 See_Comment [Auto mated = 786-4) message] The system which generated this result transmit sujata reference range : 11.2 - 15.7 GM/ DL. The reference range was not u sed to interpret th is result as normal/abnormal . EDMUND (test code = EDMUND) Extension Service Supervisor ID - [id number] Lab Interpretation Normal (test code = 99919-6) [facility] HospitalHEMOGLOBIN2021-05-17 15:06:00 Test Item Value Reference Range Interpretation Comments HEMOGLOBIN (BEAKER) (test code = 14.1 GM/DL 11.2-15.7 410) Extension Service Supervisor ID - [id number], [id number] 13:31:00Unlisted Reason for Exam - Click Yes and Enter Reason Below->YesUnlisted Reason for Exam->malignant neoplasm of uterus, unspecified siteWill this procedure require oral contrast?->NoPARK SANITARIUMName: RALPH PLEITEZ : 1955 Sex: FFINAL REPORT TECHNIQUE: CT of the abdomen and pelvis WITH intravenous contrast and WITH oral contrast. Dose modulation, iterative reconstruction, and/or weight-based adjustment of the mA/kV was utilized to reduce the radiation dose to as low as reasonably achievable. INDICATION: 65-year-old woman with malignant neoplasm of uterus. COMPARISON: None. FINDINGS: LOWER THORAX: Unremarkable. HEPATOBILIARY: 1 cm hypodensity in the hepatic dome, likely a cyst. Apparent 0.6 cm hypodensity in the left hepatic lobe is too small to characterize (axial series image 12). Gallbladder is unremarkable. No biliary ductal dilatation.SPLEEN: No splenomegaly.PANCREAS: No focal mass or ductal dilatation. ADRENALS: No adrenal nodule.KIDNEYS/URETERS: No hydronephrosis or mass. Questionable 0.2-0.3 cm nonobstructive calculi in the left kidney.PELVIC ORGANS/BLADDER: Reported uterine cancer is not clearly delineated on this CT. No adnexal mass. Bladder is unremarkable. PERITONEUM/RETROPERITONEUM: No free air or fluid.LYMPH NODES: No lymphadenopathy.VESSELS: Unremarkable. GI TRACT: No distention or wall thickening. Sigmoid diverticula. BONES AND SOFT TISSUES: Suspected transitional lumbosacral anatomy. Grade I anterolisthesis of L4 on L5 and grade II anterolisthesis of L5 on S1 without spondylolysis. Soft tissues are unremarkable. IMPRESSION:Subcentimeter hypodensity in the left hepatic lobe, too small to characterize. If indicated, abdomen MRI with and without intravenous contrast (liver protocol) may be obtained for further characterization. Questionable tiny nonobstructive left renal calculi. Signed: Paula Kelleyepsaint [facility] Verified Date/Time: 03/29/2021 13:31:56 Reading Locati on: [facility] B1 C013Y CT Body Reading Room CT Abdomen/Pelvis with IV [id number] 13:31:00Interface, External Ris In - 03/29/2021 1:34 PM CDTFINAL REPORT TECHNIQUE: CT of the abdomen and pelvis WITH intravenous contrast and WITH oral contrast. Dose modulation, iterative reconstruction, and/or weight-based adjustment of the mA/kV was utilized to reduce the radiation dose to as low as reasonably achievable. INDICATION: 65-year-old woman with malignant neoplasm of uterus. COMPARISON: None. FINDINGS: LOWER THORAX: Unremarkable. HEPATOBILIARY: 1 cm hypodensity in the hepatic dome, likely a cyst. Apparent 0.6 cm hypodensity in the left hepatic lobe is too small to characterize (axial series image 12). Gallbladder is unremarkable. No biliary ductal dilatation.SPLEEN: No splenomegaly.PANCREAS: No focal mass or ductal dilatation. ADRENALS: No adrenal nodule.KIDNEYS/URETERS: No hydronephrosis or mass. Questionable 0.2-0.3 cm nonobstructive calculi in the left kidney.PELVIC ORGANS/BLADDER: Reported uterine cancer is not clearly delineated on this CT. No adnexal mass. Bladder is unremarkable. PERITONEUM/RETROPERITONEUM: No free air or fluid.LYMPH NODES: No lymphadenopathy.VESSELS: Unremarkable. GI TRACT: No distention or wall thickening. Sigmoid diverticula. BONES ANDSOFT TISSUES: Suspected transitional lumbosacral anatomy. Grade I anterolisthesis of L4 on L5 and grade II anterolisthesis of L5 on S1 without spondylolysis. Soft tissues are unremarkable. IMPRESSION:Subcentimeter hypodensity in the left hepatic lobe, too small to characterize. If indicated, abdomen MRI with and without intravenous contrast (liver protocol) may be obtained for further characterization. Questionable tiny nonobstructive left renal calculi. Signed: Paula Kelley MDReport Verified Date/Time: 03/29/2021 13:31:56 Reading Location: [facility] B1 C013Y CT Body Reading Room [facility] [id number] 09:14:00 Test Item Value Reference Range Interpretation Comments POC-Creatinine (test 0.9 mg/dL 0.6-1.3 : TESTE D AT [facility] [place] code = 1859) [address], [place] [address]: Extension Service Supervisor/Techni stefano ID = [id number] for Viola Sterling POC-EGFR (test code 63 mL/min/1.73M2 = 1860) [facility]-[id number] 09:14:00 Test Item Value Reference Range Interpretation Comments POC-CREATININE 0.9 mg/dL 0.6-1.3 : TESTED AT [facility] (BEAKER) (test [address], code = 1859) [place] [address]: Extension Service Supervisor/Techni stefano ID = [id number] for Viola Joyce POC-EGFR (BEAKER) 63 mL/min/1.73M2 (test code = 1860)
--- NOTE | 2021-06-16 13:55 | ER ---
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 Coronavirus screen: Client denies travel out of the [place] in the last 14 days. At this time, the client does not indicate any symptoms associated with coronavirus-19. Ebola Screen: No symptoms or risks identified at this time. Risk Assessment: Do you want to hurt yourself or someone else? Patient reports no desire to harm self or others. Onset of symptoms was June 16, 2021. 13:12 Method Of Arrival: EMS: [facility] ph 13:12 Acuity: DEIRDRE 2 ph Historical: - Allergies: 13:14 latex; ph 13:14 Morphine; ph - Home Meds: 13:15 Atenolol Oral [Active]; ph - PMHx: 13:15 Atrial fibrillation; ph - Family history:: not pertinent. Screenin:13 Abuse screen: Denies threats or abuse. Denies injuries from another. Nutritional ld1 screening: No deficits noted. Tuberculosis screening: No symptoms or risk factors identified. Fall Risk None identified. Assessment: 13:13 General: Appears in no apparent distress. comfortable, Behavior is calm, cooperative, ld1 appropriate for age. Pain: Denies pain. Neuro: Level of Consciousness is awake, alert, obeys commands, Oriented to person, place, time, situation. Cardiovascular: Capillary refill < 3 seconds Patient's skin is warm and dry. Rhythm is sinus tachycardia. Respiratory: Airway is patent Respiratory effort is even, unlabored, Respiratory pattern is regular, symmetrical. GI: Abdomen is flat, non-distended. : No signs and/or symptoms were reported regarding the genitourinary system. EENT: No signs and/or symptoms were reported regarding the EENT system. Derm: No signs and/or symptoms reported regarding the dermatologic system. Musculoskeletal: No signs and/or symptoms reported regarding the musculoskeletal system. 15:13 Reassessment: Patient appears in no apparent distress at this time. No changes from ld1 previously documented assessment. Patient and/or family updated on plan of care and expected duration. Pain level reassessed. 16:21 Reassessment: Patient appears in no apparent distress at this time. No changes from ld1 previously documented assessment. Patient and/or family updated on plan of care and expected duration. Pain level reassessed. Patient is alert, oriented x 3, equal unlabored respirations, skin warm/dry/pink. 17:16 Reassessment: Patient appears in no apparent distress at this time. No changes from ld1 previously documented assessment. Patient and/or family updated on plan of care and expected duration. Pain level reassessed. Patient is alert, oriented x 3, equal unlabored respirations, skin warm/dry/pink. Vital Signs: 13:30 Pulse 114; Resp 14; Temp 97.8(O); Pulse Ox 99% on R/A; Weight 69.4 kg; Height 5 ft. 6 ld1 in. (167.64 cm); Pain 0/10; 15:13 BP 124 / 105; Pulse 119; Resp 18; Pulse Ox 97% on R/A; ld1 16:21 BP 123 / 92; Pulse 108; Resp 16; Pulse Ox 95% on R/A; ld1 17:16 BP 123 / 77; Pulse 90; Resp 18; Pulse Ox 97% on R/A; ld1 13:30 Body Mass Index 24.69 (69.40 kg, 167.64 cm) ld1 ED Course: 13:06 Patient arrived in ED. ph 13:07 Purnima Hein, ZACHARY is Primary Nurse. ld1 13:13 David Dial MD is Attending Physician. mary 13:13 Patient has correct armband on for positive identification. Bed in low position. Call ld1 light in reach. Side rails up X2. quality assurance monitor body on. Pulse ox on. NIBP on. Door closed. Noise minimized. Warm blanket given. 13:13 No provider procedures requiring assistance completed. ld1 13:14 Triage completed. ph 13:48 XRAY Chest (1 view) In Process Unspecified. EDMS 13:53 Phuc Solomon MD is Referral Physician. mary 14:34 Urine Culture Sent. ld1 14:35 Josue Pulido DO is Hospitalizing Provider. mary Administered Medications: 13:49 CANCELLED (Duplicate Order): Lopressor (metoprolol) 5 mg IVP once; Hold for SBP <100 or mary HR <60. 14:00 Drug: Digoxin 0.5 mg Route: IVP; Site: left antecubital; ld1 14:25 Follow up: Response: No adverse reaction ld1 14:00 Drug: Lovenox (enoxaparin) 1 mg/kg Route: Sub-Q; Site: abdomen; ld1 15:32 Follow up: Response: No adverse reaction ld1 14:24 Drug: NS 0.9% 500 ml Route: IV; Rate: bolus; Site: left antecubital; ld1 14:24 Drug: Lopressor (metoprolol) 5 mg Route: IVP; Site: left antecubital; ld1 14:34 Drug: Rocephin (cefTRIAXone) 1 grams Route: IV; Rate: per protocol; Site: left ld1 antecubital; 14:34 Drug: Lopressor (metoprolol TARTRATE)) 25 mg Route: PO; ld1 14:47 Follow up: Response: No adverse reaction ld1 15:31 Drug: Lopressor (metoprolol) 5 mg Route: IVP; Site: left antecubital; ld1 15:32 Follow up: Response: No adverse reaction ld1 Outcome: 13:54 Discharge ordered by . mary 14:36 Decision to Hospitalize by Provider. mary 20:05 Patient left the ED. bb Signatures: Dispatcher [employer] EDMS David Dial MD MD cha Ballard, Brenda, RN RN bb Debbie Alex RN RN Purnima Hein RN RN ld1 Corrections: (The following items were deleted from the chart) 15:05 14:34 CORONAVIRUS+ drawn and sent. ld1 EDMS
--- NOTE | 2021-06-16 13:55 | EDPHYS ---
Physician Documentation [facility] Name: Briana Jean Age: 65 yrs Sex: Female : 1955 Arrival Date: 06/16/2021 Time: 13:06 Bed 20 Private MD: ED Physician David Dial HPI: 06/16 13:51 This 65 yrs old Female presents to ER via EMS with complaints of Palpitations.mary 13:51 The patient presents with a history of irregular heart beat, heart racing. Context: The mary symptoms occur at rest, with light activity. Onset: The symptoms/episode began/occurred just prior to arrival. Duration: The patient or guardian reports a single episode, that is still ongoing. Modifying factors: The symptoms are aggravated by nothing. The symptoms are alleviated by nothing. Associated signs and symptoms: Pertinent positives: lightheadedness, vertigo. Severity of symptoms: At their worst the symptoms were mild moderate in the emergency department the symptoms are unchanged. The patient has experienced similar episodes in the past. Historical: - Allergies: 13:14 latex; ph 13:14 Morphine; ph - Home Meds: 13:15 Atenolol Oral [Active]; ph - PMHx: 13:15 Atrial fibrillation; ph - Family history:: not pertinent. ROS: 13:51 Constitutional: Negative for fever, chills, and weight loss, Eyes: Negative for injury, mary pain, redness, and discharge, ENT: Negative for injury, pain, and discharge, Neck: Negative for injury, pain, and swelling, Respiratory: Negative for shortness of breath, cough, wheezing, and pleuritic chest pain, Abdomen/GI: Negative for abdominal pain, nausea, vomiting, diarrhea, and constipation, Back: Negative for injury and pain, : Negative for injury, bleeding, discharge, and swelling, MS/Extremity: Negative for injury and deformity, Skin: Negative for injury, rash, and discoloration, Neuro: Negative for headache, weakness, numbness, tingling, and seizure, Psych: Negative for depression, anxiety, suicide ideation, homicidal ideation, and hallucinations, Allergy/Immunology: Negative for hives, rash, and allergies, Endocrine: Negative for neck swelling, polydipsia, polyuria, polyphagia, and marked weight changes, Hematologic/Lymphatic: Negative for swollen nodes, abnormal bleeding, and unusual bruising. 13:51 Cardiovascular: Positive for chest pain, palpitations. Exam: 13:51 Constitutional: This is a well developed, well nourished patient who is awake, alert, mary and in no acute distress. Head/Face: Normocephalic, atraumatic. Eyes: Pupils equal round and reactive to light, extra-ocular motions intact. Lids and lashes normal. Conjunctiva and sclera are non-icteric and not injected. Cornea within normal limits. Periorbital areas with no swelling, redness, or edema. ENT: Nares patent. No nasal discharge, no septal abnormalities noted. Tympanic membranes are normal and external auditory canals are clear. Oropharynx with no redness, swelling, or masses, exudates, or evidence of obstruction, uvula midline. Mucous membranes moist. Neck: Trachea midline, no thyromegaly or masses palpated, and no cervical lymphadenopathy. Supple, full range of motion without nuchal rigidity, or vertebral point tenderness. No Meningismus. Chest/axilla: Normal chest wall appearance and motion. Nontender with no deformity. No lesions are appreciated. Respiratory: Lungs have equal breath sounds bilaterally, clear to auscultation and percussion. No rales, rhonchi or wheezes noted. No increased work of breathing, no retractions or nasal flaring. Abdomen/GI: Soft, non-tender, with normal bowel sounds. No distension or tympany. No guarding or rebound. No evidence of tenderness throughout. Back: No spinal tenderness. No costovertebral tenderness. Full range of motion. Skin: Warm, dry with normal turgor. Normal color with no rashes, no lesions, and no evidence of cellulitis. MS/ Extremity: Pulses equal, no cyanosis. Neurovascular intact. Full, normal range of motion. Neuro: Awake and alert, GCS 15, oriented to person, place, time, and situation. Cranial nerves II-XII grossly intact. Motor strength 5/5 in all extremities. Sensory grossly intact. Cerebellar exam normal. Normal gait. Psych: Awake, alert, with orientation to person, place and time. Behavior, mood, and affect are within normal limits. 13:51 Cardiovascular: Rate: tachycardic, Rhythm: irregularly irregular, Pulses: Pulses are 4+ in bilateral radial, brachial, femoral, popliteal, posterior tibial and and dorsalis pedis arteries.. Heart sounds: normal, normal S1and S2, no S3 or S4, no murmur, no rub, no gallop. 13:51 ECG was reviewed by the Attending Physician. Vital Signs: 13:30 Pulse 114; Resp 14; Temp 97.8(O); Pulse Ox 99% on R/A; Weight 69.4 kg; Height 5 ft. 6 ld1 in. (167.64 cm); Pain 0/10; 15:13 BP 124 / 105; Pulse 119; Resp 18; Pulse Ox 97% on R/A; ld1 16:21 BP 123 / 92; Pulse 108; Resp 16; Pulse Ox 95% on R/A; ld1 17:16 BP 123 / 77; Pulse 90; Resp 18; Pulse Ox 97% on R/A; ld1 13:30 Body Mass Index 24.69 (69.40 kg, 167.64 cm) ld1 MDM: 13:13 Patient medically screened. mary 14:14 EDEN Risk Score: 1 - ASA use in past 7 days, Total Score = 1. Differential diagnosis: mary arrythmia, dehydration. Data reviewed: vital signs, nurses notes, lab test result(s), EKG, radiologic studies, plain films. Data interpreted: media monitor: rate is 114 beats/min, rhythm is atrial fibrillation, Pulse oximetry: on room air is 99 %. Test interpretation: by ED physician or midlevel provider: ECG, plain radiologic studies. Counseling: I had a detailed discussion with the patient and/or guardian regarding: the historical points, exam findings, and any diagnostic results supporting the discharge/admit diagnosis, lab results, radiology results, the need for further work-up and treatment in the hospital. 06/16 13:14 Order name: Basic Metabolic Panel [facility] 06/16 13:14 Order name: CBC with Diff; Complete Time: 14:30 [facility] 06/16 13:14 Order name: LFT's; Complete Time: 14:30 [facility] 06/16 13:14 Order name: Magnesium; Complete Time: 14:30 [facility] 06/16 13:14 Order name: NT PRO-BNP; Complete Time: 14:30 [facility] 06/16 13:14 Order name: PT-INR; Complete Time: 14:30 [facility] 06/16 13:14 Order name: Troponin (emerg Dept Use Only); Complete Time: 14:30 [facility] 06/16 13:14 Order name: TSH; Complete Time: 14:30 [facility] 06/16 13:15 Order name: Basic Metabolic Panel; Complete Time: 14:30 [facility] 06/16 14:10 Order name: Urine Dipstick-Ancillary; Complete Time: 14:30 [facility] 06/16 14:13 Order name: Urine Culture [facility] 06/16 14:14 Order name: Urine Culture [facility] 06/16 15:02 Order name: Lipid Profile; Complete Time: 19:13 [facility] 06/16 13:14 Order name: XRAY Chest (1 view); Complete Time: 14:30 [facility] 06/16 13:14 Order name: EKG; Complete Time: 13:15 [facility] 06/16 13:47 Order name: Echo w/ Doppler [facility] 06/16 15:02 Order name: T4 Free; Complete Time: 19:13 [facility] 06/16 15:02 Order name: Hemoglobin A1c; Complete Time: 19:13 [facility] 06/16 16:02 Order name: SARS-COV-2 RT PCR; Complete Time: 19:13 [facility] 06/16 17:17 Order name: Troponin I; Complete Time: 19:13 [facility] 06/16 13:14 Order name: Cardiac monitoring; Complete Time: 13:59 [facility] 06/16 13:14 Order name: EKG - Nurse/Tech; Complete Time: 13:59 [facility] 06/16 13:14 Order name: IV Saline Lock; Complete Time: 13:58 [facility] 06/16 13:14 Order name: Labs collected and sent; Complete Time: 13:58 [facility] 06/16 13:14 Order name: O2 Per Protocol; Complete Time: 13:58 [facility] 06/16 13:14 Order name: O2 Sat Monitoring; Complete Time: 13:58 [facility] 06/16 13:14 Order name: Urine Dipstick-Ancillary (obtain specimen); Complete Time: 14:24 [facility] EC:51 Rate is 116 beats/min. Rhythm is irregularly irregular. QRS [place] is Normal. NV interval mary is normal. QRS interval is normal. QT interval is normal. No Q waves. T waves are Normal. No ST changes noted. Clinical impression: Atrial Fibrillation and No evidence of ischemia. Interpreted by me. Reviewed by me. Administered Medications: 13:49 CANCELLED (Duplicate Order): Lopressor (metoprolol) 5 mg IVP once; Hold for SBP <100 or mary HR <60. 14:00 Drug: Digoxin 0.5 mg Route: IVP; Site: left antecubital; ld1 14:25 Follow up: Response: No adverse reaction ld1 14:00 Drug: Lovenox (enoxaparin) 1 mg/kg Route: Sub-Q; Site: abdomen; ld1 15:32 Follow up: Response: No adverse reaction ld1 14:24 Drug: NS 0.9% 500 ml Route: IV; Rate: bolus; Site: left antecubital; ld1 14:24 Drug: Lopressor (metoprolol) 5 mg Route: IVP; Site: left antecubital; ld1 14:34 Drug: Rocephin (cefTRIAXone) 1 grams Route: IV; Rate: per protocol; Site: left ld1 antecubital; 14:34 Drug: Lopressor (metoprolol TARTRATE)) 25 mg Route: PO; ld1 14:47 Follow up: Response: No adverse reaction ld1 15:31 Drug: Lopressor (metoprolol) 5 mg Route: IVP; Site: left antecubital; ld1 15:32 Follow up: Response: No adverse reaction ld1 Disposition Summary: 06/16/21 14:36 Hospitalization Ordered Hospitalization Status: Observation mary Provider: Josue Pulido cha Location: Telemetry/MedSurg (observation)(06/16/21 14:36) mary Condition: Fair(06/16/21 14:36) mray Problem: new(06/16/21 14:36) mary Symptoms: have improved(06/16/21 14:36) mary Bed/Room Type: Standard mary Room Assignment: 207(06/16/21 18:36) bd Diagnosis - Unspecified atrial fibrillation - w/ RVR(06/16/21 14:36) mary - UTI/ Urinary tract infection, site not specified(06/16/21 14:36) mary - Palpitations(06/16/21 14:36) mary Forms: - Medication Reconciliation Form mary - SBAR form mary Signatures: Dispatcher [employer] EDEmerald Abad Corey, MD MD cha Roszak, Josh, PA PA jr8 Debbie Alex RN RN Dibbern, Purnima, RN RN ld1 Corrections: (The following items were deleted from the chart) 13:49 13:47 Lopressor (metoprolol) 5 mg IVP once; Hold for SBP <100 or HR <60. ordered. mary mary 14:34 13:54 Home mary mary 14:34 13:54 new mary mary 14:34 13:54 have improved mary mary 14:34 13:54 Stable mary mary 14:34 13:54 Palpitations mary mary 14:34 13:54 Unspecified atrial fibrillation - with RVR mary mary 14:34 14:15 UTI/ Urinary tract infection, site not specified mary mary 15:05 13:51 CORONAVIRUS+MR.LAB.BRZ ordered. EDMS EDMS 18:36 14:36 mary bd
[2021-06-16 14:02] LABS: Absolute Lymphocytes (CBC) 2.2 K/uL (0.7-4.9); Basophils % 1.2 % (0-1.3); Hematocrit 44.4 % (36.0-45.0); MPV 8.9 fL (7.6-11.3); RBC Red Blood Cell Count 4.89 M/uL (3.86-4.86)
[2021-06-16 14:07] LABS: Protime INR 1.09
[2021-06-16 14:11] LABS: Urine Blood Trace-intact (Negative); Urine Glucose Negative (Negative); Urine Protein Negative (Negative); Urine Specific Gravity 1.025 (1.005-1.030); Urine pH 6.5 (5.0-7.0)
--- NOTE | 2021-06-16 14:20 | RAD REPORT ---
EXAM DESCRIPTION: RAD - Chest Single View - 06/16/2021 1:48 pm CLINICAL HISTORY: PALPITATIONS COMPARISON: Abdomen 1 View (KUB) dated 10/18/2016; ABDOMEN 1 VIEW KUB dated 09/16/2015; ABDOMEN 1 VIEW KUB dated 09/02/2014; ABDOMEN 1 VIEW KUB dated 08/19/2013 FINDINGS: No evidence of edema or pneumonia. The heart size is within normal limits.No acute osseous abnormality. No significant pleural effusions or pneumothorax. IMPRESSION: No acute cardiopulmonary disease.
[2021-06-16] MEDS ORDERED: DIGOXIN 0.25 MG/ML AMP ONE (14:22)
[2021-06-16] MEDS ORDERED: ENOXAPARIN 60 MG/0.6 ML SQ ONE (14:23)
[2021-06-16] MEDS ORDERED: METOPROLOL TARTRATE 5 MG/5 ML INJ IV ONE ×2 (14:23→15:51)
[2021-06-16] MEDS ORDERED: NA CHLORIDE 0.9% 500 ML ONE (14:23)
[2021-06-16 14:29] LABS: ALT/SGPT 23 U/L (12-78); AST/SGOT 12 U/L (15-37); Albumin 4.2 g/dL (3.4-5.0); Alkaline Phosphatase 103 U/L (45-117); BUN Blood Urea Nitrogen 13 mg/dL (7-18); Bicarbonate 26 mmol/L (21-32); Bilirubin Direct 0.1 mg/dL (0-0.2); Bilirubin Total 0.4 mg/dL (0.2-1.0); Glucose Level 126 mg/dL (74-106); Magnesium 2.2 mg/dL (1.8-2.4); NT PRO-BNP 1749 pg/mL (<125); Potassium 4.1 mmol/L (3.5-5.1); Protein, Total 7.8 g/dL (6.4-8.2); Sodium Level 139 mmol/L (136-145); Troponin (Emerg Dept Use Only) < 0.02 ng/mL (0.0-0.045)
[2021-06-16] MEDS ORDERED: CEFTRIAXONE/SWI 1gm 1 GM/10 ML SYR ONE (14:50)
[2021-06-16] MEDS ORDERED: METOPROLOL TAR 25 MG TAB ONE (14:51)
[2021-06-16] MEDS ORDERED: LABETALOL 20 MG/4ML SYRINGE IV PRN (15:00)
[2021-06-16] MEDS ORDERED: ONDANSETRON 4 MG/2 ML VIAL IV PRN (15:02)
[2021-06-16] MEDS ORDERED: HYDROCODONE/APAP 5/325 MG TAB PO PRN (15:18)
--- NOTE | 2021-06-16 15:20 | P.HP ---
Certification for Inpatient Patient admitted to: Observation With expected LOS: <2 Midnights Patient will require the following post-hospital care: None Practitioner: I am a practitioner with admitting privileges, knowledge of patient current condition, hospital course, and medical plan of care. Services: Services provided to patient in accordance with Admission requirements found in Title 42 Section 412.3 of the Code of Federal Regulations Patient History Date of Service: 06/16/21 Reason for admission: Palpitations History of Present Illness: Patient is a 65-year-old female with a past medical history significant for atrial fibrillation, mitral valve prolapse, endometrial cancer and hyperlipidemia who presents with complaint of palpitations onset this morning. Patient reported associated signs or symptoms of lightheadedness, headache and fatigue. Patient denies any other signs and symptoms. Symptoms are aggravated or relieved by nothing. Patient called her cessation systems outreach specialist who instructed her to come to the ER for medical evaluation. Patient decided to present to the ER as directed by her cessation systems outreach specialist. Allergies latex Allergy (Severe, Verified 02/24/21 14:43) Swollen lips Home medications list reviewed: Yes Home Medications: Acetaminophen [Tylenol Extra Strength] 2 tab PO Q4HP PRN 06/18/13 Aspirin 81 mg PO BEDTIME 06/18/13 atenoloL [Tenormin*] 50 mg PO BID 06/18/13 Atorvastatin Calcium 40 mg PO BEDTIME 02/24/21 - Past Medical/Surgical History Diabetic: No -: A-fib -: Mitral Valve Prolapse -: High Cholesterol -: Appy -: Left breast lumpectomy - Family History Father -: Heart disease, Hypertension Mother -: Heart disease, Hypertension Brother -: Other (see notes) (Afib ) - Social History Smoking Status: Never smoker Alcohol use: No CD- Drugs: No Caffeine use: Yes Review of Systems General: Other (Fatigue) Eyes: Unremarkable ENT: Unremarkable Respiratory: Unremarkable Cardiovascular: Light Headedness Gastrointestinal: Unremarkable Genitourinary: Unremarkable Musculoskeletal: Unremarkable Integumentary: Unremarkable Neurological: Other (Dizziness ), Unremarkable Physical Examination - Physical Exam General: Alert, In no apparent distress, Oriented x3 HEENT: Atraumatic, PERRLA, Mucous membr. moist/pink, EOMI, Sclerae nonicteric Neck: Supple, 2+ carotid pulse no bruit, No LAD, Without JVD or thyroid abnormality Respiratory: Clear to auscultation bilaterally, Normal air movement Cardiovascular: No edema, Regular rate/rhythm, Normal S1 S2 Capillary refill: <2 Seconds Gastrointestinal: Normal bowel sounds, Soft and benign, No tenderness Musculoskeletal: No clubbing, No tenderness Integumentary: No rashes Neurological: Normal gait, Normal speech, Normal strength at 5/5 x4 extr, Normal tone, Normal affect Lymphatics: No axilla or inguinal lymphadenopathy External genitalia: Deferred Rectal: Deferred - Studies Laboratory Data (last 24 hrs) 06/16/21 13:50: PT 12.5, INR 1.09 06/16/21 13:50: WBC 9.10, Hgb 14.6, Hct 44.4, Plt Count 357 06/16/21 13:50: Sodium 139, Potassium 4.1, BUN 13, Creatinine 0.88, Glucose 126 H, Magnesium 2.2, Total Bilirubin 0.4, AST 12 L, ALT 23, Alkaline Phosphatase 103 Assessment and Plan - Plan --Atrial fibrillation with RVR. Echocardiogram pending. Cardiology consulted. Patient placed on Lovenox subQ. Saw Repairer recommended placing patient on sotalol. Telemetry to monitor for any significant arrhythmia. We will await further recommendations from cessation systems outreach specialist. --Hyperlipidemia. Continue statin. --History of mitral valve prolapse. Echocardiogram pending. Continue supportive care. --History of endometrial cancer. Status post hysterectomy. Patient follow up with an outpatient oncologist. Continue supportive care. --Headache. Tylenol p.r.n.. --UTI POA. Patient placed on antibiotics --Elevated BNP. Echocardiogram pending. Further management per cessation systems outreach specialist --DVT prophylaxis with Lovenox subQ I have had discussion about advanced directives with the patient and /or family during this hospital admission. Addressed code status and /or goals of care. Spent more than 15 minutes. Case discussed with patient and nurse Discharge Plan: Home Plan to discharge in: 24 Hours - Advance Directives Does patient have a Living Will: No Does patient have a Durable POA for Healthcare: No - Code Status/Comfort Care Code Status Assessed: Yes Code Status: Full Code Physician Review: Patient Assessed, Agree with Above Assessment and Plan Critical Care: No
[2021-06-16] MEDS: SOTALOL HCL 80 MG TAB PO SCH (18:00)
[2021-06-16] MEDS: CEFTRIAXONE/SWI 1gm 1 GM/10 ML SYR IV SCH (21:00)
[2021-06-16] MEDS ORDERED: ATORVASTATIN 40 MG TAB PO SCH (21:00)
[2021-06-16] MEDS: ACETAMINOPHEN 500 MG TAB PO PRN (23:26)
[2021-06-16 23:28] VITALS: BMI 24.2
[2021-06-17] MEDS: ACETAMINOPHEN 500 MG TAB PO PRN ×2 (04:02→08:51)
[2021-06-17 04:14] LABS: Absolute Lymphocytes (CBC) 3.1 K/uL (0.7-4.9); Hematocrit 38.7 % (36.0-45.0); Lymphocytes % 41.6 % (15.3-44.8); MPV 8.6 fL (7.6-11.3)
[2021-06-17 04:16] LABS: Protime INR 1.15
[2021-06-17 04:25] LABS: Potassium 3.7 mmol/L (3.5-5.1)
[2021-06-17] MEDS: SOTALOL HCL 80 MG TAB PO SCH ×2 (06:36→17:13)
[2021-06-17] MEDS ORDERED: POTASSIUM CL SA 10 MEQ TAB PO ONE (07:55)
[2021-06-17] MEDS: CEFTRIAXONE/SWI 1gm 1 GM/10 ML SYR IV SCH (08:43)
[2021-06-17] MEDS ORDERED: ENOXAPARIN 80 MG/0.8 ML SQ SCH (09:00)
[2021-06-17] MEDS ORDERED: ASPIRIN 81 MG CHEWABLE TABLET PO SCH (09:00)
--- NOTE | 2021-06-17 10:08 | ECHO ---
HEIGHT: 5 ft 6 in WEIGHT: 150 lb 0 oz DATE OF STUDY: 06/16/[address]: David Dial MD 2-DIMENSIONAL: YES M.MODE: YES DOPPLER: YES COLOR FLOW: YES TDS: PORTABLE: DEFINITY: BUBBLE STUDY: DIAGNOSIS: ATRIAL FIBRILLATION CARDIAC HISTORY: CATHERIZATION: SURGERY: PROSTHETIC VALVE: PACEMAKER: MEASUREMENTS (cm) DIASTOLIC (NORMALS) SYSTOLIC (NORMALS) IVSd 1.1 (0.6-1.2) LA Diam 3.8 (1.9-4.0) LVEF 67% LVIDd 4.2 (3.5-5.7) LVIDs 2.6 (2.0-3.5) %FS 37% LVPWd 1.3 (0.6-1.2) Ao Diam 2.3 (2.0-3.7) 2 DIMENSIONAL ASSESSMENT: RIGHT ATRIUM: NORMAL LEFT ATRIUM: NORMAL RIGHT VENTRICLE: NORMAL LEFT VENTRICLE: NORMAL TRICUSPID VALVE: NORMAL MITRAL VALVE: NORMAL PULMONIC VALVE: NORMAL AORTIC VALVE: NORMAL PERICARDIAL EFFUSION: NONE AORTIC ROOT: NORMAL LEFT VENTRICULAR WALL MOTION: NORAML DOPPLER/COLOR FLOW: MILD MITRAL REGURGITATION COMMENTS: MILD MITRAL REGURGITATON. NORMAL LEFT VENTRICULAR SIZE AND FUNCTION. ATRIAL FIBRILLATION. TECHNOLOGIST: TITO RUBI
[2021-06-17 13:15] VITALS: O2SAT 94
[2021-06-17 17:06] VITALS: BP 128/90; TEMP 97.5
--- NOTE | 2021-06-17 20:06 | P.DS ---
Admission Date: 06/16/21 Discharge Date: 06/17/21 Disposition: ROUTINE DISCHARGE Discharge Condition: GOOD Reason for Admission: Palpitations Consultations: Cardiology - Dr. Lawton Procedures: CXR (06/16): No evidence of edema or pneumonia. The heart size is within normal limits.No acute osseous abnormality. No significant pleural effusions or pneumothorax. IMPRESSION: No acute cardiopulmonary disease. TTE (06/16): mild MR. normal LV size/function. Afib. EF: 67% Problem List paroxysmal afib with RVR HLD h/o mitral valve prolapse h/o endometrial cancer s/p hysterectomy Brief History of Present Illness: 65-year-old female with a past medical history significant for atrial fibrillation, mitral valve prolapse, endometrial cancer and hyperlipidemia who presents with complaint of palpitations onset this morning. Patient reported associated signs or symptoms of lightheadedness, headache and fatigue. Patient denies any other signs and symptoms. Symptoms are aggravated or relieved by nothing. Patient called her career center advisor who instructed her to come to the ER for medical evaluation. Patient decided to present to the ER as directed by her career center advisor. Hospital Course: Patient was treated with lopressor in the ED with minimal improvement of her h eart rate. Cardiology was consulted. She was placed on Sotalol and converted overnight to sinus rhythm. She underwent EKG after 2nd dose of Sotalol with a normal QT interval. She was deemed stable for discharge by Cardiology. It was recommended that she remain on an aspirin and no full anticoagulation. Patient did report some suprapubic discomfort and increased urinary frequency. Initial UA was partially suggestive of a UTI and she was empirically treated with antibiotics. She is to continue a few more days of antibiotics. She has an appointment with Dr. Lawton in ~1 week. Vital Signs/Physical Exam: Temp Pulse Resp BP Pulse Ox 97.5 F 75 16 128/90 95 06/17/21 16:00 06/17/21 16:00 06/17/21 16:00 06/17/21 16:06/17/21 16:00 General: Alert, In no apparent distress, Oriented x3 HEENT: Mucous membr. moist/pink, Sclerae nonicteric Respiratory: Clear to auscultation bilaterally, Normal air movement Cardiovascular: No edema, Regular rate/rhythm, Normal S1 S2 Gastrointestinal: Soft and benign, Non-distended, No tenderness Musculoskeletal: No erythema, No tenderness Integumentary: No rashes Neurological: Normal speech, Normal affect Laboratory Data at Discharge: WBC 7.30 K/uL (4.3-10.9) D 06/17/21 03:47 Hgb 13.0 g/dL (12.0-15.0) 06/17/21 03:47 Hct 38.7 % (36.0-45.0) 06/17/21 03:47 Plt Count 265 K/uL (152-406) D 06/17/21 03:47 PT 13.2 SECONDS (9.5-12.5) H 06/17/21 03:47 INR 1.15 06/17/21 03:47 Sodium 142 mmol/L (136-145) 06/17/21 03:47 Potassium 3.7 mmol/L (3.5-5.1) 06/17/21 03:47 BUN 14 mg/dL (7-18) 06/17/21 03:47 Creatinine 0.71 mg/dL (0.55-1.3) 06/17/21 03:47 Glucose 88 mg/dL (74-106) 06/17/21 03:47 Magnesium 2.2 mg/dL (1.8-2.4) 06/16/21 13:50 Total Bilirubin 0.4 mg/dL (0.2-1.0) 06/16/21 13:50 AST 12 U/L (15-37) L 06/16/21 13:50 ALT 23 U/L (12-78) 06/16/21 13:50 Alkaline Phosphatase 103 U/L (45-117) 06/16/21 13:50 Troponin I < 0.02 ng/mL (0.0-0.045) 06/17/21 03:47 Triglycerides 169 mg/dL (<150) H 06/16/21 16:32 Cholesterol 194 mg/dL (<200) 06/16/21 16:32 HDL Cholesterol 54 mg/dL (40-60) 06/16/21 16:32 Cholesterol/HDL Ratio 3.59 06/16/21 16:32 Home Medications: Acetaminophen [Tylenol Extra Strength] 2 tab PO Q4HP PRN 06/18/13 Aspirin 81 mg PO BEDTIME 06/18/13 Atorvastatin Calcium 40 mg PO BEDTIME 02/24/21 Amoxicillin/Potassium Clav [Augmentin 875-125 Tablet] 1 each PO BID 4 Days #8 tablet 06/17/21 Sotalol HCl [Betapace*] 80 mg PO BID 30 Days #60 tab 06/17/21 New Medications: Amoxicillin/Potassium Clav [Augmentin 875-125 Tablet] 1 each PO BID 4 Days #8 tablet Sotalol HCl [Betapace*] 80 mg PO BID 30 Days #60 tab Physician Discharge Instructions: PROBLEM: Atrial fibrillation, UTI GOAL: Clear understanding of disease process E-scripts sent to [facility] in [place]. INSTRUCTIONS: You are found to be in atrial fibrillation with a fast heart rate. You improved with new medication. You are discharged home to continue this new medication, sotalol 80 mg twice a day. Stop your atenolol. Follow-up with your career center advisor, Dr. Lawton as discussed. You are discharged with a few more days of antibiotics - to cover possible UTI. Diet: Heart healthy Activity: As tolerated IMMUNIZATION Influenza Vaccine Indicated: Influenza Vaccine Given: Date Given: Pneumonia Vaccine Indicated: No Pneumonia Vaccine Given: Date Given: Diet: AHA Activity: Ad rosa Followup: Anthony Lawton MD [ACTIVE - CAN ADMIT] - 1 Week (Follow up in office in 1 week. Call to schedule an appointment. ) Lan Mckeon MD [Primary Care Provider] - 1 Week (Follow up in office in 1 week. Call to schedule an appointment. ) Time spent managing pt's care (in minutes): 40
--- NOTE | 2021-06-18 10:50 | EKG ---
Test Date: 2021-06-17 Test Time: 18:00:29 Typing Bookkeeper: TRACEY Mendoza MEASUREMENT RESULTS: Intervals: Rate: 81 ID: [id number] QRSD: 92 QT: 398 QTc: 462 [place]: P: 36 ID: [id number] QRS: 28 T: 78 INTERPRETIVE STATEMENTS: Normal sinus rhythm Nonspecific ST and T wave abnormality Abnormal ECG Compared to ECG 06/16/2021 14:03:02 Atrial fibrillation no longer present Possible ischemia no longer present ST (T wave) deviation still present Electronically Signed On 06-18-21 10:48:19 CDT by Anthony Lawton
--- NOTE | 2021-06-20 07:21 | CON ---
Date of Consultation: 06/17/[address] Solomon on 06/16/2021. I saw the patient on 06/17/2021. Reason For Consultation: Recurrent atrial fibrillation. History Of Present Illness: Ms. Jean is a 65-year-old, who is known to me from previous office visi t. Has had a history of paroxysmal atrial fibrillation, but has not had an episode for many years. She actually went to my office when I was not in the office and noted to be in atrial fibrillation or rapid ventricular response and hypotension. She was sent to the emergency room and was admitted. D enied any syncope, chest pain, nausea, vomiting, diaphoresis, PND, orthopnea, or pedal edema. Denied any fever or chills or cough. In the emergency room, she was running a heart rate of about 120-130 or slightly hypotensive. She re ceived IV digoxin. Allergies: INCLUDE LATEX AND MORPHINE. Review of Systems: Negative. Social History: Negative. Family History: Negative. Medications: At home include atenolol. Physical Examination: Vital Signs: Stable except for the atrial fibrillation. Examination otherwise was done by Dr. Solomon and it was normal with: Chest: Clear. Cardiac: Revealed atrial fibrillation. Abdomen: Benign. Extremities: Revealed no clubbing, cyanosis, or edema. Diagnostic Data: Basically were all within normal limits except for atrial fibrillation. Her BNP wa s 2391 secondary to the atrial fibrillation. Her triglyceride was 169. Impression And Plan: Recurrent atrial fibrillation. Has not had 1 episode in 20 years. I will swit ch her to sotalol. Continue Lovenox and continue her home medication. She is on antibiotics because of possible urinary tract infection. She is on Lipitor because of her mild triglyceridemia. I am n ot so sure she needs that at home in the long run, but we will switch her to sotalol 80 b.i.d., and i f she converted to sinus rhythm, we will send her home on sotalol and only aspirin. She has low BALTA S score. I will repeat an echocardiogram in the office in the near future. TONY/NAWAF Voice ID: [id number] Report ID: [id number]
== END 2021-06-17 18:40 | disposition home or self-care (01) ==
LOC: ER 12:59 → ERHOLD 15:09 → 2ND 20:38
PROVIDERS: ADMIT Hospitalist; ATTEND Hospitalist
DX: I48.0 Paroxysmal atrial fibrillation (principal); N39.0 Urinary tract infection, site not specified; R51.9 Headache, unspecified; E78.5 Hyperlipidemia, unspecified; E78.00 Pure hypercholesterolemia, unspecified; I34.1 Nonrheumatic mitral (valve) prolapse; Z20.822 Contact with and (suspected) exposure to COVID-19; Z88.6 Allergy status to analgesic agent; Z91.040 Latex allergy status; Z85.42 Personal history of malignant neoplasm of other parts of uterus; Z90.710 Acquired absence of both cervix and uterus; Z82.49 Family history of ischemic heart disease and other diseases of the circulatory system
CPT/HCPCS: 93005 ×2; 93306; 87088; 85025 ×2; 87086; 80048 ×2; 36415 ×2; 83735; 85610 ×2; 80061; 80076; 84443; 81003; 83036; 84484 ×4; 84439; 83880 ×2; 71045; 96375; 96372; 96374; 99284; U0003; J1160; J1650; J0696 ×3; J7040; G0378 ×3

== ENCOUNTER 2022-02-24 20:38 | Inpatient (IN) | payer BC, OTHER ==
--- OUTSIDE RECORDS SUMMARY | 2022-02-24 20:41 | XMS REPORT | Continuity of Care Document ---
:[address] [facility] t Address [address] [place] [address] Care Team Providers Name Role Phone Airana ERICKSON, K Primary Care Physician LUPE ALEX Attending Clinician Unavailable SYSTEM, NOT IN Attending Clinician Unavailable LUPE ALEX Attending Clinician Unavailable Lupe Alex MD Attending Clinician LUPE ALEX Admitting Clinician Unavailable Payers Payer Name Policy Type Policy Number Effective Date Expiration Date S [employer]mark AETNA [facility] [id number] 2020 00:00:00 ACCESS OPEN ACCESS [id number] HMO/POS/EPO/PPO - AETNA OUT OF STATE BCBS [id number] - PPO - BS Problems Condition Condition Condition Status Onset Resolution Last Treating Co mments Source Name Details Category Date Date Treatment Clinician Date Malignant Malignant Disease Active [facility] neoplasm neoplasm 03-24 Colleg e of of 00:00: of overlappin overlappin 00 Me dicin g sites of g sites of e body of body of uterus uterus (HCCode) (HCCode) Allergies, Adverse Reactions, Alerts Allergy Allergy Status Severity Reaction(s) Onset Inactive Treating Comm ents Source Name Type Date Date Clinician LATEX Allergy [facility] MORPHINE Allergy Active It[facility] Latex Propensi Active Swelling Swelling [facility] or ty to 5-13 of lips, College adverse 00:00: tingling of reaction 00 of tongue Medic in s to e substanc e Opioid Propensi Active Itching [facility] 5[facility]12 [facility] cs adverse 00:00: of reaction 00 Medicin s to e drug Social History Social Habit Start Date Stop Date Quantity Comments Source Alcohol intake 2022-02-07 2022-02-07 Lifetime [facility] 00:00:00 00:00:00 non-drinker of Medicine (finding) Exposure to 2022-01-21 2022-01-31 Not sure [facility] SARS-CoV-2 00:00:00 17:07:00 of Medicine (event) Tobacco use and 2021-03-24 2021-03-24 Smokeless tobacco Josef sadie [place] exposure 00:00:00 00:00:00 non-user of Medicine Sex Ass[birth year] F [facility] [employer] 00:00:00 00:00:00 of Medicine Smoking Status Start Date Stop Date Source Never smoked tobacco [facility] Medications Ordered Filled Start Stop Current Ordering Indication Dosage Frequency Signature Comments Components Source Medication Medication Date Date Medication? Clinician (SIG) Name Name atorvastati Yes 40mg Take 40 mg [facility] (LIPITOR) 3-28 by mouth Iliana ege 40 MG 09:11: daily. of tablet 26 Medicin e Cholecalcif Yes Take by [facility] 3-28 mouth. College () 09:11: of 625 MCG 26 Medicin (76710 UT) e CAPS ASPIRIN 81 Yes Take by [facility] OR 3-28 mouth. College 09:11: of 26 Medicin e Multiple Yes Take by Julio Clo r Vitamin 3-28 mouth. College (MULTIVITAM 09:11: of IN ADULT 26 Medicin OR) e Bioflavonoi Yes Take by Josef anderson d Products 3-28 mouth. College (GRAPE SEED 09:11: of OR) 26 Medicin e atorvastati 2020-11 Yes 40mg Take 40 mg [facility] (LIPITOR) 2-27 by mouth Ilaina ege 40 MG 09:02: daily. of tablet 11 Medicin e Cholecalcif 2020-11 Yes Take by [facility] 2-27 mouth. [place] ([facility]) 09:02: of 625 MCG 11 Medicin (06712 UT) e CAPS ASPIRIN 81 2020-11 Yes Take by [facility] OR 2-27 mouth. [place] 09:02: of 11 Medicin e Multiple 2020-11 Yes Take by [facility] Vitamin 2-27 mouth. [place] [facility] 09:02: of IN ADULT 11 Medicin OR) e Bioflavonoi 2020-11 Yes Take by [facility] d Products 2-27 mouth. [place] (GRAPE SEED 09:02: of OR) 11 Medicin e losartan 2020-0 Yes [facility] (COZAAR) 50 9-28 College MG tablet 00:00: of 00 Medicin e losartan 2020-0 Yes [facility] (COZAAR) 50 9-28 College MG tablet 00:00: of 00 Medicin e atorvastati 2020-0 Yes 40mg Take 40 mg [facility] n (LIPITOR) 9-27 by mouth Iliana ege 40 MG 09:37: daily. of tablet 52 Medicin e Cholecalcif 0 Yes Take by [facility] 9-27 mouth. [place] ([facility]) 09:37: of 625 MCG 52 Medicin (34071 UT) e CAPS ASPIRIN 81 0 Yes Take by [facility] OR 9-27 mouth. [place] 09:37: of 52 Medicin e Multiple 0 Yes Take by [facility] Vitamin 9-27 mouth. [place] (MULTIVITAM 09:37: of IN ADULT 52 Medicin OR) e Bioflavonoi 0 Yes Take by [facility] Products 9-27 mouth. [place] (GRAPE SEED 09:37: of OR) 52 Medicin e atorvastati 2020-0 Yes 40mg Take 40 mg [facility] (LIPITOR) 9-27 by mouth Iliana ege 40 MG 09:37: daily. of tablet 52 Medicin e Cholecalcif 2020-0 Yes Take by [facility] 9-27 mouth. [place] ([facility]) 09:37: of 625 MCG 52 Medicin (74946 UT) e CAPS ASPIRIN 81 0 Yes Take by [facility] OR 08-09 mouth. College 09:37: of 52 Medicin e Multiple 0 Yes Take by [facility] Vitamin 08-09 mouth. College (MULTIVITAM 09:37: of IN ADULT 52 Medicin OR) e Bioflavonoi 0 Yes Take by [facility] Products 08-09 mouth. College (GRAPE SEED 09:37: of OR) 52 Medicin e atenolol 0 2020- No 50mg 50 mg two [facility] (TENORMIN) 08-09 times College 100 MG 09:37: 00:00 daily. of tablet 28 :00 Medicin e atenolol 2020-0 2020- No 50mg 50 mg two [facility] (TENORMIN) 08-09 times College 100 MG 09:37: 00:00 daily. of tablet 28 :00 Medicin e sotalol 0 Yes [facility] (BETAPACE) 8-05 [place] 80 MG 00:00: of tablet 00 Medicin e sotalol 0 Yes [facility] (BETAPACE) 8-05 [place] 80 MG 00:00: of tablet 00 Medicin e sotalol 2020-0 Yes [facility] (BETAPACE) 8-05 [place] 80 MG 00:00: of tablet 00 Medicin e sotalol 2020-0 Yes [facility] (BETAPACE) 8-05 [place] 80 MG 00:00: of tablet 00 Medicin e atenolol 0 Yes 50mg 50 mg two [facility] (TENORMIN) 6- times College 100 MG 08:41: daily. of tablet 46 Medicin e atorvastati 0 Yes 40mg Take 40 mg [facility] n (LIPITOR) 6-07 by mouth Iliana ege 40 MG 08:41: daily. of tablet 46 Medicin e Cholecalcif Yes Take by [facility] - mouth. [place] ([facility]) 08:41: of 625 MCG 46 Medicin (54440 UT) e CAPS ASPIRIN 81 0 Yes Take by [facility] OR 6-07 mouth. [place] 08:41: of 46 Medicin e Multiple 0 Yes Take by [facility] Vitamin 6-07 mouth. [place] (MULTIVITAM 08:41: of IN ADULT 46 Medicin OR) e Bioflavonoi 0 Yes Take by [facility] Products 04-19 mouth. [place] (GRAPE SEED 08:41: of OR) 46 Medicin e tramadol 2020-0 Yes 1{tbl} Take 1 [facility] (ULTRAM) 50 5-19 Tablet by Col lege MG tablet 00:00: mouth of 00 every 6 Medicin hours as e needed for Pain. ibuprofen 2020-0 Yes 600mg Take 1 [facility] (MOTRIN) 5-19 Tablet by Colleg e 600 MG 00:00: mouth of tablet 00 every 6 Medicin hours as e needed for Pain. docusate 2020-0 Yes 100mg Take 1 [facility] sodium 5-19 capsule by [place] (COLACE) 00:00: mouth two of 100 MG 00 times Medicin capsule daily. e tramadol 2020-0 Yes 1{tbl} Take 1 [facility] (ULTRAM) 50 5-19 Tablet by Col lege MG tablet 00:00: mouth of 00 every 6 Medicin hours as e needed for Pain. ibuprofen 0 Yes 600mg Take 1 [facility] (MOTRIN) 5-19 Tablet by Colleg e 600 MG 00:00: mouth of tablet 00 every 6 Medicin hours as e needed for Pain. docusate 2020-0 Yes 100mg Take 1 [facility] sodium 5-19 capsule by [place] (COLACE) 00:00: mouth two of 100 MG 00 times Medicin capsule daily. e tramadol 2020-0 Yes 1{tbl} Take 1 [facility] (ULTRAM) 50 5-19 Tablet by Col lege MG tablet 00:00: mouth of 00 every 6 Medicin hours as e needed for Pain. ibuprofen 2020-0 Yes 600mg Take 1 [facility] (MOTRIN) 5-19 Tablet by Colleg e 600 MG 00:00: mouth of tablet 00 every 6 Medicin hours as e needed for Pain. docusate 2020-0 Yes 100mg Take 1 [facility] sodium 5-19 capsule by [place] (COLACE) 00:00: mouth two of 100 MG 00 times Medicin capsule daily. e tramadol 2020-0 Yes 1{tbl} Take 1 [facility] (ULTRAM) 50 5-19 Tablet by Col lege MG tablet 00:00: mouth of 00 every 6 Medicin hours as e needed for Pain. ibuprofen Yes 600mg Take 1 [facility] (MOTRIN) 5-19 Tablet by Colleg e 600 MG 00:00: mouth of tablet 00 every 6 Medicin hours as e needed for Pain. docusate Yes 100mg Take 1 [facility] sodium 5-19 capsule by [place] (COLACE) 00:00: mouth two of 100 MG 00 times Medicin capsule daily. e tramadol Yes 1{tbl} Take 1 [facility] (ULTRAM) 50 5-19 Tablet by Col lege MG tablet 00:00: mouth of 00 every 6 Medicin hours as e needed for Pain. ibuprofen Yes 600mg Take 1 [facility] (MOTRIN) 5-19 Tablet by Colleg e 600 MG 00:00: mouth of tablet 00 every 6 Medicin hours as e needed for Pain. docusate Yes 100mg Take 1 [facility] sodium 5-19 capsule by [place] (COLACE) 00:00: mouth two of 100 MG 00 times Medicin capsule daily. e Vital Signs Vital Name Observation Time Observation Value Comments Source WEIGHT 2021-04-01 08:00:00 68.2 kg HEIGHT 2021-04-01 08:00:00 167.6 cm HEIGHT 2021-03-25 15:01:00 167.6 cm WEIGHT 2021-03-25 15:01:00 69.4 kg Systolic blood 2022-02-07 14:11:00 157 mm[Hg] [facility] pressure Medicine Diastolic blood 2022-02-07 14:11:00 105 mm[Hg] [facility] pressure Medicine Heart rate 2022-02-07 14:11:00 80 /min [facility] Body temperature 2022-02-07 14:11:00 36.67 [facility] Body height 2022-02-07 14:11:00 167.6 cm [facility] Body weight 2022-02-07 14:11:00 69.4 kg [facility] BMI 2022-02-07 14:11:00 24.69 kg/m2 [facility] Body height 2021-11-08 15:00:00 167.6 cm [facility] Body weight 2021-11-08 15:00:00 69.854 kg [facility] BMI 2021-11-08 15:00:00 24.86 kg/m2 [facility] Systolic blood 2021-11-08 15:00:00 156 mm[Hg] [facility] pressure Medicine Diastolic blood 2021-11-08 15:00:00 78 mm[Hg] [facility] pressure Medicine Heart rate 2021-11-08 15:00:00 77 /min [facility] Body temperature 2021-11-08 15:00:00 36.67 [facility] Systolic blood 2021-08-09 14:38:00 137 mm[Hg] [facility] pressure Medicine Diastolic blood 2021-08-09 14:38:00 97 mm[Hg] [facility] pressure Medicine Heart rate 2021-08-09 14:38:00 84 /min [facility] Body temperature 2021-08-09 14:38:00 36.67 [facility] Body height 2021-08-09 14:38:00 167.6 cm [facility] Body weight 2021-08-09 14:38:00 68.493 kg [facility] BMI 2021-08-09 14:38:00 24.37 kg/m2 [facility] Systolic blood 2021-04-19 13:40:00 165 mm[Hg] [facility] pressure Medicine Diastolic blood 2021-04-19 13:40:00 104 mm[Hg] [facility] pressure Medicine Heart rate 2021-04-19 13:40:00 77 /min [facility] Body temperature 2021-04-19 13:40:00 36.67 [facility] Body height 2021-04-19 13:40:00 167.6 cm [facility] Body weight 2021-04-19 13:40:00 68.493 kg [facility] BMI 2021-04-19 13:40:00 24.37 kg/m2 [facility] Systolic blood 2021-04-19 13:40:00 165 mm[Hg] [facility] pressure Medicine Diastolic blood 2021-04-19 13:40:00 104 mm[Hg] [facility] pressure Medicine Heart rate 2021-04-19 13:40:00 77 /min [facility] Body temperature 2021-04-19 13:40:00 36.67 [facility] Body height 2021-04-19 13:40:00 167.6 cm [facility] Body weight 2021-04-19 13:40:00 68.493 kg [facility] BMI 2021-04-19 13:40:00 24.37 kg/m2 [facility] WEIGHT 2021-04-01 08:00:00 68.2 kg HEIGHT 2021-04-01 08:00:00 167.6 cm HEIGHT 2021-03-25 15:01:00 167.6 cm WEIGHT 2021-03-25 15:01:00 69.4 kg Procedures This patient has no known procedures. Plan of Care Planned Activity Planned Date Details Comments Source Future Scheduled 2022-02-07 Screening for malignant [facility] Test 09:25:55 neoplasm of colon of Medicin e (procedure) [code = 316219963] Future Scheduled 2022-02-07 Screening for malignant [facility] Test 09:25:55 neoplasm of breast of Medici ne (procedure) [code = 145315195] Future Scheduled 2022-02-07 COVID-19 Vaccine (1) [facility] Test 09:25:55 [code = COVID-19 of Medicine Vaccine (1)] Future Scheduled 2022-02-07 TETANUS SHOT (ADULT) [facility] Test 09:25:55 [code = TETANUS SHOT of Medi cine (ADULT)] Future Scheduled 2022-02-07 Hepatitis C screening [facility] Test 09:25:55 (procedure) [code = of Medic ine 977769957] Future Scheduled 2022-02-07 Human immunodeficiency B [facility] Test 09:25:55 virus screening of Medicine (procedure) [code = 348553315] Future Scheduled 2022-02-07 Screening for malignant [facility] Test 09:25:55 neoplasm of cervix of Medici ne (procedure) [code = 795745748] Future Scheduled 2022-02-07 ZOSTER VACCINE (1 of 2) [facility] Test 09:25:55 [code = ZOSTER VACCINE of Me dicine (1 of 2)] Future Scheduled 2022-02-07 FLU VACCINE > 6 MONTHS [facility] Test 09:25:55 [code = FLU VACCINE > 6 of M edicine MONTHS] Future Scheduled 2022-02-07 PAP SMEAR - IMAGE Ordered: [facility] Test 09:16:11 GUIDED - NON MEDICARE 02/07/2022 of Med icine [code = NOCPT] Future Scheduled 2021-11-08 Screening for malignant [facility] Test 09:01:19 neoplasm of colon of Medicin e (procedure) [code = 264815568] Future Scheduled 2021-11-08 Screening for malignant [facility] Test 09:01:19 neoplasm of breast of Medici ne (procedure) [code = 184220981] Future Scheduled 2021-11-08 COVID-19 Vaccine (1) [facility] Test 09:01:19 [code = COVID-19 of Medicine Vaccine (1)] Future Scheduled 2021-11-08 TETANUS SHOT (ADULT) [facility] Test 09:01:19 [code = TETANUS SHOT of Medi cine (ADULT)] Future Scheduled 2021-11-08 Hepatitis C screening [facility] Test 09:01:19 (procedure) [code = of Medic ine 045958788] Future Scheduled 2021-11-08 Human immunodeficiency B [facility] Test 09:01:19 virus screening of Medicine (procedure) [code = 256898153] Future Scheduled 2021-11-08 Screening for malignant [facility] Test 09:01:19 neoplasm of cervix of Medici ne (procedure) [code = 146787632] Future Scheduled 2021-11-08 ZOSTER VACCINE (1 of 2) [facility] Test 09:01:19 [code = ZOSTER VACCINE of Me dicine (1 of 2)] Future Scheduled 2021-11-08 FLU VACCINE > 6 MONTHS B [facility] College Test 09:01:19 [code = FLU VACCINE > 6 of M edicine MONTHS] Future Scheduled 2021-08-09 Screening for malignant [facility] Test 09:40:25 neoplasm of colon of Medicin e (procedure) [code = 762237060] Future Scheduled 2021-08-09 Screening for malignant [facility] Test 09:40:25 neoplasm of breast of Medici ne (procedure) [code = 188457544] Future Scheduled 2021-08-09 COVID-19 Vaccine (1) [facility] Test 09:40:25 [code = COVID-19 of Medicine Vaccine (1)] Future Scheduled 2021-08-09 TETANUS SHOT (ADULT) [facility] Test 09:40:25 [code = TETANUS SHOT of Medi cine (ADULT)] Future Scheduled 2021-08-09 Hepatitis C screening [facility] Test 09:40:25 (procedure) [code = of Medic ine 499080152] Future Scheduled 2021-08-09 Human immunodeficiency [facility] Test 09:40:25 virus screening of Medicine (procedure) [code = 387970603] Future Scheduled 2021-08-09 Screening for malignant [facility] Test 09:40:25 neoplasm of cervix of Medici ne (procedure) [code = 762079211] Future Scheduled 2021-08-09 ZOSTER VACCINE (1 of 2) [facility] Test 09:40:25 [code = ZOSTER VACCINE of Ak dicine (1 of 2)] Future Scheduled 2021-08-09 FLU VACCINE > 6 MONTHS [facility] Test 09:40:25 [code = FLU VACCINE > 6 of M edicine MONTHS] Future Scheduled 2021-08-09 Screening for malignant [facility] Test 09:40:25 neoplasm of colon of Medicin e (procedure) [code = 826719958] Future Scheduled 2021-08-09 Screening for malignant [facility] Test 09:40:25 neoplasm of breast of Medici ne (procedure) [code = 270882490] Future Scheduled 2021-08-09 COVID-19 Vaccine (1) [facility] Test 09:40:25 [code = COVID-19 of Medicine Vaccine (1)] Future Scheduled 2021-08-09 TETANUS SHOT (ADULT) [facility] Test 09:40:25 [code = TETANUS SHOT of Medi cine (ADULT)] Future Scheduled 2021-08-09 Hepatitis C screening [facility] Test 09:40:25 (procedure) [code = of Medic ine 044793352] Future Scheduled 2021-08-09 Human immunodeficiency [facility] Test 09:40:25 virus screening of Medicine (procedure) [code = 845464096] Future Scheduled 2021-08-09 Screening for malignant [facility] Test 09:40:25 neoplasm of cervix of Medici ne (procedure) [code = 487526390] Future Scheduled 2021-08-09 ZOSTER VACCINE (1 of 2) [facility] Test 09:40:25 [code = ZOSTER VACCINE of Me dicine (1 of 2)] Future Scheduled 2021-08-09 FLU VACCINE > 6 MONTHS [facility] Test 09:40:25 [code = FLU VACCINE > 6 of M edicine MONTHS] Future Scheduled 2021-04-19 Screening for malignant [facility] Test 08:41:39 neoplasm of colon of Medicin e (procedure) [code = 844808974] Future Scheduled 2021-04-19 Screening for malignant [facility] Test 08:41:39 neoplasm of breast of Medici ne (procedure) [code = 493822625] Future Scheduled 2021-04-19 COVID-19 Vaccine (1) [facility] College Test 08:41:39 [code = COVID-19 of Medicine Vaccine (1)] Future Scheduled 2021-04-19 TETANUS SHOT (ADULT) [facility] Test 08:41:39 [code = TETANUS SHOT of Medi cine (ADULT)] Future Scheduled 2021-04-19 Hepatitis C screening [facility] Test 08:41:39 (procedure) [code = of Medic ine 322538474] Future Scheduled 2021-04-19 Human immunodeficiency [facility] Test 08:41:39 virus screening of Medicine (procedure) [code = 343482974] Future Scheduled 2021-04-19 Screening for malignant [facility] Test 08:41:39 neoplasm of cervix of Medici ne (procedure) [code = 593551786] Future Scheduled 2021-04-19 ZOSTER VACCINE (1 of 2) [facility] Test 08:41:39 [code = ZOSTER VACCINE of Me dicine (1 of 2)] Future Scheduled 2021-04-19 FLU VACCINE > 6 MONTHS [facility] Test 08:41:39 [code = FLU VACCINE > 6 of M edicine MONTHS] Encounters Start End Encounter Admission Attending Care Care Encounter Source Date/Time Date/Time Type Type Clinicians Facility Department ID 2021-08-21 [facility] Surgery [id number] [facility] 19:35:15 TRACILYN 2021-03-09 Outpatient SYSTEM, [facility] [id number] [place] 09:15:54 PROVIDER Durga shaver 2022-02-07 2022-02-07 Office EMERSON, [facility] [id number] [facility] 09:03:38 13:34:12 Visit TRACILYN Chauncey [id number] C ollege 0.2.7.2.686 of [id number] [facility] 520 e 2021-11-08 2021-11-08 Office ALEX, [facility] [id number] [facility] 08:51:55 12:18:59 Visit TRACILYN Chauncey 350.1.13.21 C ollege 0.2.7.2.686 of [id number] [facility] 520 e 2021-08-09 2021-08-09 Office Mulhall, [facility] [id number] [facility] 09:22:27 09:52:27 Visit Tracilyn Chauncey 350.1.13.21 C ollege Lupe 0.2.7.2.686 of [id number] [facility] 520 e 2021-04-19 2021-04-19 Office [place], [facility] [id number] 08:36:47 09:06:47 Visit Tracilyn Chauncey 350.1.13.21 Lupe 0.2.7.2.686 [id number] 2021-04-19 2021-04-19 Office [place], [facility] [id number] [facility] 08:36:47 09:06:47 Visit Tracilyn Chauncey 350.1.13.21 C ollege [facility] 0.2.7.2.686 of [id number] [facility] l[facility] 520 e 2021-03-29 2021-03-29 Outpatient [facility] [id number] SLE 00:00:00 00:00:00 TRACILYN 2021-03-29 2021-03-29 Outpatient [facility] [id number] SLE 00:00:00 00:00:00 2021-03-24 2021-03-24 Outpatient [facility] [id number] [facility] 07:51:03 13:43:43 JAVY ly of Medicin e Results Test Description Test Time Test Comments Results Result Sourc e Comments TISSUE EXAM 2021-04-20 Surgical Pathology Report 10:34:00 Case: [id number] Authorizing Provider: Javy Alex, Collected: 04/01/2021 01:06 PM Ordering Location: [facility] PERIOPERATIVE Received: 04/01/2021 01:24 PM SERVICES Pathologist: Lore Esquivel MD Specimen: Uterus w/Bilateral Fallopian Tubes, Ovaries, & Cervix This addendum is issued to report the results of immunostains. Immunohistochemical stains for mismatch repair genes are as follows: MLH1 - Intact nuclear expressionMSH2 - Intact nuclear expressionMSH6 - Intact nuclear expressionPMS2 - Intact nuclear expressionBackground nonneoplastic tissue/internal control with intact nuclear expressionIHC InterpretationNo loss of nuclear expression of MMR proteins: low probability of microsatellite instability-high (MSI-H)There are exceptions to the above IHC interpretations. These results should not be considered in isolation, and clinical correlation with genetic counseling is recommended to assess the need for germline testing.PBCodes : 97214 x 1, 20585 x 3 Addendum electronically signed by Lore Esquivel MD on 04/20/2021 at 10:34 AMUTERUS WITH CERVIX AND BILATERAL FALLOPIAN TUBES AND OVARIES, TOTAL ABDOMINAL HYSTERECTOMY WITH BILATERAL SALPINGO-OOPHORECTOMY: UTERUS - ENDOMETRIAL ENDOMETRIOID CARCINOMA, FIGO GRADE 2 - TUMOR SIZE: 4.4 X 4 X 0.6 CM - DEPTH OF MYOMETRIAL INVASION: 2 MM OF 13 MM- NO LYMPHOVASCULAR INVASION IDENTIFIED - LEIOMYOMA, SUBMUCOSAL - UNREMARKABLE UTERINE SEROSA CERVIX - PARAKERATOSIS, NO TUMOR PRESENT RIGHT AND LEFT OVARIES - NO TUMOR PRESENT - CALCIFIED CORPUS ALBICANS IN LEFT OVARY RIGHT FALLOPIAN TUBE - NO TUMOR PRESENT - PARATUBAL CYSTLEFT FALLOPIAN TUBE - NO TUMOR PRESENT - PARATUBAL ENDOMETRIOSIS Signing Pathologist Direct Phone Line: [phone] y signed by Lore Esquivel MD on 04/07/2021 at 2:31 PMENDOMETRIUM (ENDOMETRIUM: HYSTERECTOMY - All Specimens)8th Edition - [...] (pN): pNX FIGO STAGE FIGO Stage: [place] [address], [address], 41195, 73259V. Uterus, cervix, bilateral tubes and ovariesA. Received fresh for intraoperative frozen consultation labeled with patient's name, medical record number and accession number, "uterus with bilateral fallopian tubes, ovaries and cervix" is a 64g, 8 x 6.5 x 3 cm hysterectomy specimen with [...] and cauterized. The specimen is bivalved to reveal a homogeneous ramsey, firm mass covering the entire [...] the left ovary is ramsey-yellow, smooth, cut surface is remarkable for ramsey-yellow calcified nodule (1 [...] x 0.5 cm), the cut surface of the fimbria is unremarkable, lumen of the fimbrial end of fallopian tube is dilated and filled with blood.Ink code:Anterior-BluePosteri or-blackSection code:FS A1: Anterior endomyometrium, healthcare representative (to include the whorled nodule)A2-A5: Anterior longitudinal endomyometrium, sections starting with cervix in S5Z6-A2: Anterior longitudinal endomyometrium, sections starting with cervix in W0C95-K88: Posterior longitudinal endomyometrium, section starting with cervix in T21U85-C65: Posterior longitudinal endomyometrium, sectioned starting with cervix in a 14A18: Anterior endomyometrium with the whorled nodule, [id number]: Right ovary, [id number]: Left ovary, healthcare representative following light [id number]: Right fimbria in its entirety and healthcare representative cross-section of fallopian jeuwJ00-C45: Left fimbria in its entirety and healthcare representative cross-section of fallopian tube (to include the hemorrhagic cyst)Cheryl Key MDA. UTERUS, CERVIX, BILATERAL TUBES AND OVARIES, TOTAL ABDOMINAL HYSTERECTOMY AND BILATERAL SALPINGO-OOPHORECTOMY:-GR OSS TUMOR ON ENTIRE ENDOMETRIAL SURFACE, DOES NOT EXTEND TO MORE THAN 50% OF MYOMETRIUM-FAVOR SUPERFICIAL INVASION. ONE SUBMUCOSAL NODULE, GROSSLY SUGGESTIVE OF LEIOMYOMA-MICROSCOPICALLY CONFIRMED ENDOMETRIAL ADENOCARCINOMA WITH SUPERFICIAL MYOMETRIAL INVASION AND SUBMUCOSAL LEIOMYOMAReported by on 01 Apr 2021 at 1:56 PM to OR#[id number]. ELECTROLYTES 2021-03-29 15:23:00 Test Item Value Reference Range Interpretation Comme nts SODIUM (BEAKER) (test code = 381) 142 meq/L 136-145 POTASSIUM (BEAKER) (test code = 379) 4.2 meq/L 3.5-5.1 Specimen slightly hemolyzed CHLORIDE (BEAKER) (test code = 382) 105 meq/L 98-107 CO2 (BEAKER) (test code = 355) 27 meq/L 22-29 Head Of Measurement & Insights ID - DBBUN AND CREATININE [id number] 15:23:00 Test Item Value Reference Range Interpretation Comments BLOOD UREA NITROGEN 13 mg/dL 7-21 (BEAKER) (test code = 354) CREATININE (BEAKER) 0.87 mg/dL 0.57-1.25 (test code = 358) BUN/CREAT RATIO 15 For a normal (BEAKER) (test code individu al on a = 7788148779) normal diet, t he reference inter deyanira for the mass ra erick ranges between 12:1 and 20:1 (BUN i n mg/dL/creatinin e in mg/dL) EGFR (BEAKER) (test 66 mL/min/1.73 ESTIMA SUJATA GFR IS code = 1092) sq m NOT ACCURATE CREATININE CLEARANCE IN PREDICTING GLOMERULAR FILTRATION RATE . ESTIMATED GFR I S NOT APPLICABLE FOR DIALYSIS PATIEN TS. Head Of Measurement & Insights ID - [id number] 15:06:00 Test Item Value Reference Range Interpretation Comments HEMOGLOBIN (BEAKER) (test code = 14.1 GM/DL 11.2-15.7 410) Head Of Measurement & Insights ID - [id number], [id number] 13:31:00Unlisted Reason for Exam - Click Yes and Enter Reason Below->YesUnlisted Reason for Exam->malignant neoplasm of uterus, unspecified siteWill this procedure require oral contrast?->NoMONIQUE [facility]ENTERName: [facility]ALPH PLEITEZ : 1955 Sex: FFINAL REPORT [...] tiny nonobstructive left renal calculi. Signed: Paula Ronquillo MDReport Verified Date/Time: 03/29/2021 13:31:56 Reading Locati on: [facility] B1 C013Y CT Body Reading Room [id number] 09:14:00 Test Item Value Reference Range Interpretation Comments POC-CREATININE 0.9 mg/dL 0.6-1.3 : [facility] (BEAKER) (test [address] OOD, code = 1859) [facility] [id number]: Head Of Measurement & Insights/Techni stefano ID = [id number] for Viola Joyce POC-EGFR (BEAKER) 63 mL/min/1.73M2 (test code = 1860)
[2022-02-24] MEDS ORDERED: METOPROLOL TARTRATE 5 MG/5 ML INJ IV ONE ×2 (21:34→21:49)
[2022-02-24 21:44] LABS: Absolute Lymphocytes (CBC) 2.6 K/uL (0.7-4.9); Hematocrit 39.5 % (36.0-45.0); Lymphocytes % 29.1 % (15.3-44.8); MPV 8.5 fL (7.6-11.3); RBC Red Blood Cell Count 4.41 M/uL (3.86-4.86)
[2022-02-24 21:58] LABS: Potassium 3.4 mmol/L (3.5-5.1)
[2022-02-24 22:02] LABS: Troponin High Sensitivity 5.4 pg/mL (<58.9)
--- NOTE | 2022-02-24 22:12 | RAD REPORT ---
EXAM DESCRIPTION: Nataly Single View02/24/2022 9:52 pm CLINICAL HISTORY: Palpitations COMPARISON: 2020 FINDINGS: The lungs appear clear of acute infiltrate. The heart is normal size IMPRESSION: No acute abnormalities displayed
--- NOTE | 2022-02-25 00:11 | EDPHYS ---
Physician Documentation [facility] Name: Briana Jean Age: 66 yrs Sex: Female : 1955 Arrival Date: 02/24/2022 Time: 20:39 Bed 17 Private MD: Lan Mckeon B ED Physician Carlos Dodd HPI: 02/25 05:29 This 66 yrs old Female presents to ER via Wheelchair with complaints of AFIB. kdr 05:29 The patient presents with a history of irregular heart beat, heart racing. Context: The kdr symptoms occur at rest. Onset: The symptoms/episode began/occurred suddenly, just prior to arrival. Duration: The patient or guardian reports a single episode, that is still ongoing, but improving. Modifying factors: The symptoms are aggravated by nothing. The symptoms are alleviated by nothing. Associated signs and symptoms: Pertinent positives: lightheadedness, near-syncope. Severity of symptoms: At their worst the symptoms were mild in the emergency department the symptoms are unchanged. The patient has experienced similar episodes in the past, a few times, This is the third time in 20 years that she is experienced this type of activity. The patient has not recently seen a physician. Patient states that she was sitting on her couch this evening when she felt like she was going to pass out. She has a history of A. fib which is normally rate controlled. At 7:30 PM, she took an additional dose of sotalol 3 baby aspirin. Historical: - Allergies: 02/24 21:00 Latex, Natural Rubber; jb4 21:00 Morphine; jb4 - Home Meds: 21:00 Aspirin Oral [Active]; losartan oral [Active]; Sotalol Oral [Active]; jb4 - PMHx: 21:00 Atrial fibrillation; Endometrial Cancer; jb4 - PSHx: 21:00 Hysterectomy; jb4 - Immunization history:: Adult Immunizations up to date. - Social history:: Smoking status: Patient denies any tobacco usage or history of. ROS: 02/25 00:44 Constitutional: Negative for fever, chills, and weight loss, Eyes: Negative for injury, kdr pain, redness, and discharge, ENT: Negative for injury, pain, and discharge, Neck: Negative for injury, pain, and swelling, Respiratory: Negative for shortness of breath, cough, wheezing, and pleuritic chest pain, Abdomen/GI: Negative for abdominal pain, nausea, vomiting, diarrhea, and constipation, Back: Negative for injury and pain, : Negative for injury, bleeding, discharge, and swelling, MS/Extremity: Negative for injury and deformity, Skin: Negative for injury, rash, and discoloration, Neuro: Negative for headache, weakness, numbness, tingling, and seizure activity. Cardiovascular: Positive for palpitations, Negative for chest pain, edema, orthopnea. Exam: 00:44 Constitutional: This is a well developed, well nourished patient who is awake, alert, kdr and in no acute distress. Head/Face: Normocephalic, atraumatic. Eyes: Pupils equal round and reactive to light, extra-ocular motions intact. Lids and lashes normal. Conjunctiva and sclera are non-icteric and not injected. Cornea within normal limits. Periorbital areas with no swelling, redness, or edema. Neck: Trachea midline, no thyromegaly or masses palpated, and no cervical lymphadenopathy. Supple, full range of motion without nuchal rigidity, or vertebral point tenderness. No Meningismus. Chest/axilla: Normal chest wall appearance and motion. Nontender with no deformity. No lesions are appreciated. Respiratory: Lungs have equal breath sounds bilaterally, clear to auscultation and percussion. No rales, rhonchi or wheezes noted. No increased work of breathing, no retractions or nasal flaring. Abdomen/GI: Soft, non-tender, with normal bowel sounds. No distension or tympany. No guarding or rebound. No evidence of tenderness throughout. Back: No spinal tenderness. No costovertebral tenderness. Full range of motion. Skin: Warm, dry with normal turgor. Normal color with no rashes, no lesions, and no evidence of cellulitis. MS/ Extremity: Pulses equal, no cyanosis. Neurovascular intact. Full, normal range of motion. Neuro: Awake and alert, GCS 15, oriented to person, place, time, and situation. Cranial nerves II-XII grossly intact. Motor strength 5/5 in all extremities. Sensory grossly intact. Cerebellar exam normal. Normal gait. Psych: Awake, alert, with orientation to person, place and time. Behavior, mood, and affect are within normal limits. 00:44 Cardiovascular: Rate: tachycardic, actual rate is 152 bpm, Rhythm: irregularly irregular, Pulses: no pulse deficits are appreciated, Heart sounds: normal, Edema: is not appreciated, JVD: is not appreciated. 00:44 ECG was reviewed by the Attending Physician. Vital Signs: 02/24 21:00 BP 119 / 94; Pulse 153; Resp 24; Temp 97.9(TE); Pulse Ox 100% on R/A; Weight 69.4 kg jb4 (R); Height 5 ft. 6 in. (167.64 cm); Pain 0/10; 21:40 BP 130 / 85; Pulse 114; Resp 11; Pulse Ox 97% on R/A; kd3 22:31 BP 119 / 88; Pulse 109; Resp 17; Pulse Ox 98% on R/A; kd3 02/25 00:46 BP 122 / 90; Pulse 107; Resp 20; Pulse Ox 96% on R/A; kd3 01:22 BP 131 / 96; Pulse 109; Resp 17; Pulse Ox 98% on R/A; kd3 01:37 BP 109 / 92; Pulse 104; Resp 17; Pulse Ox 98% on R/A; kd3 02/24 21:00 Body Mass Index 24.69 (69.40 kg, 167.64 cm) jb4 MDM: 00:11 Patient medically screened. kdr 05:29 Data reviewed: vital signs, nurses notes, lab test result(s), radiologic studies. kdr Counseling: I had a detailed discussion with the patient and/or guardian regarding: the historical points, exam findings, and any diagnostic results supporting the discharge/admit diagnosis, lab results, radiology results, the need for further work-up and treatment in the hospital. ED course: Patient continued to improve with the medications and interventions given. Rate significantly improved though did not return to normal. Patient states that she still had occasional lightheaded spells. Given that her rate was not controlled at this time nor did she have support at home, it was felt that the patient would be better served by admission to an observation bed and for Dr. Oscar to be consulted for further rate control. 02/24 21:01 Order name: Basic Metabolic Panel; Complete Time: 23:19 kdr 02/24 21:01 Order name: CBC with Diff; Complete Time: 23:19 kdr 02/24 21:01 Order name: Troponin HS; Complete Time: 23:19 kdr 02/24 21:01 Order name: XRAY Chest (1 view); Complete Time: 23:19 kdr 02/25 00:18 Order name: COVID 19 CPL (Document "Date of Onset" if Symptomatic) vc1 02/25 03:42 Order name: SARS-COV-2 RT PCR EDMS 02/24 21:01 Order name: EKG; Complete Time: 21:02 kdr 02/24 21:01 Order name: Cardiac monitoring; Complete Time: 21: kdr 02/24 21:01 Order name: EKG - Nurse/Tech; Complete Time: 21:09 kdr 02/24 21:01 Order name: IV Saline Lock; Complete Time: 21:25 kdr 02/24 21:01 Order name: Labs collected and sent; Complete Time: : kdr 02/24 21:01 Order name: O2 Per Protocol; Complete Time: : kdr 02/24 21:01 Order name: O2 Sat Monitoring; Complete Time: : kdr EC:44 Rate is 152 beats/min. Rhythm is irregularly irregular, A fib with No ectopy. QRS Thayer kdr is Normal. TX interval is normal. QRS interval is normal. Clinical impression: Atrial Fibrillation. Administered Medications: 02/24 21:34 Drug: Lopressor (metoprolol) 5 mg Route: IVP; Site: left antecubital; kd3 22:52 Drug: Lopressor (metoprolol) 5 mg Route: IVP; Site: left antecubital; kd3 02/25 01:52 Follow up: Response: No adverse reaction kd3 02/24 22:52 Drug: Lopressor (metoprolol) 5 mg Route: IVP; Site: left antecubital; kd3 02/25 00:39 Drug: Potassium Chloride 40 mEq Route: PO; kd3 01:52 Follow up: Response: No adverse reaction kd3 00:39 Drug: Sotalol 80 mg Route: PO; kd3 01:51 Follow up: Response: No adverse reaction kd3 Disposition Summary: 02/25/22 00:11 Hospitalization Ordered Hospitalization Status: Observation kdr Location: Telemetry/MedSurg (observation) kdr Condition: Fair kdr Problem: an acute exacerbation kdr Symptoms: have improved kdr Bed/Room Type: Standard kdr Provider: Phuc Solomon(02/25/22 00:33) la1 Room Assignment: 223(02/25/22 04:04) cg Diagnosis - Chronic atrial fibrillation kdr - Unspecified atrial fibrillation - with acute exacerbation kdr Forms: - Medication Reconciliation Form kdr - SBAR form kdr Signatures: Dispatcher [employer] EDMS Carlos Dodd MD MD kdr Ivis Sifuentes RN RN bb Wes Nino, SHALE PLANER OPERATOR-C SHALE PLANER OPERATOR-Cla1 Mary Laguna RN RN cg Bryson, James, RN RN jbCatherine Apple RN RN kd3 Corrections: (The following items were deleted from the chart) 00:10 02/24 21:02 Allergies: latex; [facility] 02/25 00:02/24 21:02 Allergies: Morphine; hoa [place] 02/25 00:10 02/24 21:02 Home Meds: Sotalol Oral; hoa [place] 02/25 00:10 02/24 21:02 Home Meds: Aspirin Oral; hoa [place] 02/25 00:10 02/24 21:02 Home Meds: losartan oral; ho[facility] [place] 02/25 00:10 02/24 21:02 PMHx: Atrial fibrillation; hoa [place] 02/25 00:10 02/24 21:02 PMHx: endometrial cancer; hoa [place] 02/25 00:10 02/24 21:02 PSHx: hysterectomy; hoa eDvorah 02/25 00:10 02/24 21:02 Immunization history: Adult Immunizations up to date, hoa [place] 02/25 00:02/24 21:02 Social history: Smoking status: Patient denies any tobacco usage or history katiana ofDavid camara 02/25 00:33 00:11 OmitErmias varner kdr la1 04:04 00:11 kdr cg
--- NOTE | 2022-02-25 00:11 | ER ---
Nurse's Notes [facility] Name: Briana Jean Age: 66 yrs Sex: Female : 1955 Arrival Date: 02/24/2022 Time: 20:39 Bed 17 Private MD: Lan Mckeon B Diagnosis: Chronic atrial fibrillation;Unspecified atrial fibrillation-with acute exacerbation Presentation: 02/24 21:00 Chief complaint: Patient states: I have A-fib, I feel light headed, I feel like my jb4 heart is racing and like I am about to pass out. I took my home dose of Sotalol at 1930 and 3 baby aspirin at 1999. 21:00 Coronavirus screen: At this time, the client does not indicate any symptoms associated jb4 with coronavirus-19. Ebola Screen: No symptoms or risks identified at this time. Initial Sepsis Screen: Does the patient meet any 2 criteria? No. Patient's initial sepsis screen is negative. Does the patient have a suspected source of infection? No. Patient's initial sepsis screen is negative. Risk Assessment: Do you want to hurt yourself or someone else? Patient reports no desire to harm self or others. Onset of symptoms was February 24, 2022. Transition of care: patient was not received from another setting of care. 21:00 Method Of Arrival: Wheelchair jb4 21:00 Acuity: DEIRDRE 2 jb4 Historical: - Allergies: 21:00 Latex, Natural Rubber; jb4 21:00 Morphine; jb4 - Home Meds: 21:00 Aspirin Oral [Active]; losartan oral [Active]; Sotalol Oral [Active]; jb4 - PMHx: 21:00 Atrial fibrillation; Endometrial Cancer; jb4 - PSHx: 21:00 Hysterectomy; jb4 - Immunization history:: Adult Immunizations up to date. - Social history:: Smoking status: Patient denies any tobacco usage or history of. Screenin:09 Abuse screen: Denies threats or abuse. Denies injuries from another. Nutritional kd3 screening: No deficits noted. Tuberculosis screening: No symptoms or risk factors identified. Fall Risk None identified. Assessment: 21:08 General: Appears in no apparent distress. Behavior is calm, cooperative, appropriate kd3 for age. Pain: Denies pain. Neuro: Level of Consciousness is awake, alert, obeys commands, Oriented to person, place, time, situation. Cardiovascular: Patient's skin is warm and dry. Respiratory: Airway is patent Trachea midline Respiratory effort is even, unlabored, Respiratory pattern is regular, symmetrical. 22:00 Reassessment: Patient and/or family updated on plan of care and expected duration. Pain kd3 level reassessed. Patient is alert, oriented x 3, equal unlabored respirations, skin warm/dry/pink. Patient denies pain at this time. Patient states feeling better. General: Appears in no apparent distress. comfortable, Behavior is calm, cooperative, appropriate for age. 23:00 Reassessment: No changes from previously documented assessment. Patient and/or family kd3 updated on plan of care and expected duration. Pain level reassessed. Patient is alert, oriented x 3, equal unlabored respirations, skin warm/dry/pink. 02/25 00:30 Reassessment: No changes from previously documented assessment. kd3 Vital Signs: 02/24 21:00 BP 119 / 94; Pulse 153; Resp 24; Temp 97.9(TE); Pulse Ox 100% on R/A; Weight 69.4 kg jb4 (R); Height 5 ft. 6 in. (167.64 cm); Pain 0/10; 21:40 BP 130 / 85; Pulse 114; Resp 11; Pulse Ox 97% on R/A; kd3 22:31 BP 119 / 88; Pulse 109; Resp 17; Pulse Ox 98% on R/A; kd3 02/25 00:46 BP 122 / 90; Pulse 107; Resp 20; Pulse Ox 96% on R/A; kd3 01:22 BP 131 / 96; Pulse 109; Resp 17; Pulse Ox 98% on R/A; kd3 01:37 BP 109 / 92; Pulse 104; Resp 17; Pulse Ox 98% on R/A; kd3 02/24 21:00 Body Mass Index 24.69 (69.40 kg, 167.64 cm) jb4 ED Course: 02/24 20:39 Patient arrived in ED. mr 20:40 Lan Mckeon MD is Private Physician. mr 21:00 Carlos Dodd MD is Attending Physician. kdr 21:00 Arm band placed on right wrist. jb4 21:02 Triage completed. bb 21:08 Catherine yL, ZACHARY is Primary Nurse. kd3 21:53 XRAY Chest (1 view) In Process Unspecified. EDMS 02/25 00:09 Carlos Dodd MD is Hospitalizing Provider. kdr 00:10 Hospitalizing Provider role handed off by Carlos Dodd MD kdr 00:10 Ermias Bernal MD is Hospitalizing Provider. kdr 00:33 Phuc Solomon MD is Hospitalizing Provider. la1 04:11 No provider procedures requiring assistance completed. Inserted saline lock: 20 gauge kd3 in left antecubital area, using aseptic technique. Patient admitted, IV remains in place. 04:12 Patient has correct armband on for positive identification. Placed in gown. Bed in low kd3 position. Administered Medications: 02/24 21:34 Drug: Lopressor (metoprolol) 5 mg Route: IVP; Site: left antecubital; kd3 22:52 Drug: Lopressor (metoprolol) 5 mg Route: IVP; Site: left antecubital; kd3 02/25 01:52 Follow up: Response: No adverse reaction kd3 02/24 22:52 Drug: Lopressor (metoprolol) 5 mg Route: IVP; Site: left antecubital; kd3 02/25 00:39 Drug: Potassium Chloride 40 mEq Route: PO; kd3 01:52 Follow up: Response: No adverse reaction kd3 00:39 Drug: Sotalol 80 mg Route: PO; kd3 01:51 Follow up: Response: No adverse reaction kd3 Outcome: 00:11 Decision to Hospitalize by Provider. kdr 04:11 Admitted to Med/surg room 223. kd3 04:11 Condition: stable 04:11 Instructed on the need for admit. 04:12 Patient left the ED. kd3 Signatures: Dispatcher [employer] EDMI Carlos Dodd MD MD kdr RiveraDana mr Ivis Sifuentes, RN RN bb Wes Nino, SHOE SPRAYER-C SHOE SPRAYER-Cla1 Hector Groves, RN RN jbCatherine Apple, ZACHARY RN kd3 Corrections: (The following items were deleted from the chart) 00:06 02/24 21:00 Chief complaint: Patient states: I have A-fib, I feel light headed, I feel jb4 like my heart is racing and like I am about to pass out. I took my home dose of Sotalol at 1930 and 3 baby aspirin at 1999 02/25 00:02/24 21:00 Coronavirus screen: At this time, the client does not indicate any symptoms jb4 associated with coronavirus-19. 02/25 00:02/24 21:00 Ebola Screen: No symptoms or risks identified at this time. [facility] 02/25 00:02/24 21:00 Initial Sepsis Screen: Does the patient meet any 2 criteria? No. Patient's jb4 initial sepsis screen is negative. Does the patient have a suspected source of infection? No. Patient's initial sepsis screen is negative. 02/25 00:02/24 21:00 Risk Assessment: Do you want to hurt yourself or someone else? Patient katiana reports no desire to harm self or others. 02/25 00:02/24 21:00 Onset of symptoms was February 24, 2022 [facility] 02/25 00:02/24 21:00 Transition of care: patient was not received from another setting of care. [facility] 02/25 00:02/24 21:00 Method Of Arrival: Ambulatory [facility] 02/25 00:02/24 21:00 BP 119 / 94; Pulse 153bpm; Resp 24bpm; Pulse Ox 100% RA; Temp 97.9F; 69.4 [facility] kg Reported; Height 5 ft. 6 in. Reported; BMI: 24.6; Pain 0/10; 02/25 00:02/24 21:00 Acuity: DEIRDRE 2 [facility] 02/25 00:02/24 21:02 Allergies: latex; [facility] 02/25 00:02/24 21:02 Allergies: Morphine; [facility] 02/25 00:02/24 21:02 Home Meds: Sotalol Oral; [facility] 02/25 00:02/24 21:02 Home Meds: Aspirin Oral; [facility] 02/25 00:02/24 21:02 Home Meds: losartan oral; [facility] 02/25 00:02/24 21:02 PMHx: Atrial fibrillation; [facility] 02/25 00:02/24 21:02 PMHx: endometrial cancer; [facility] 4 02/25 00:02/24 21:02 PSHx: hysterectomy; hoa jb4 02/25 00:02/24 21:02 Immunization history: Adult Immunizations up to date, hoa jb4 02/25 00:02/24 21:02 Social history: Smoking status: Patient denies any tobacco usage or history katiana of. hoa 02/26 00:02/24 21:02 Arm band placed on right wrist. hoa jb4
[2022-02-25] MEDS ORDERED: POTASSIUM CL SA 10 MEQ TAB PO ONE (00:40)
[2022-02-25] MEDS ORDERED: SOTALOL HCL 80 MG TAB ONE (00:40)
--- NOTE | 2022-02-25 00:47 | P.HP ---
Certification for Inpatient Patient admitted to: Observation With expected LOS: <2 Midnights Patient will require the following post-hospital care: None Practitioner: I am a practitioner with admitting privileges, knowledge of patient current condition, hospital course, and medical plan of care. Services: Services provided to patient in accordance with Admission requirements found in Title 42 Section 412.3 of the Code of Federal Regulations <Wes Nino - Last Filed: 02/25/22 00:44> Patient History Date of Service: 02/25/22 Reason for admission: A. fib RVR History of Present Illness: 66-year-old female with history of atrial fibrillation, hypertension and endometrial cancer status post hysterectomy presents emergency department for A. fib RVR. Patient reports that she takes sotalol 80 mg p.o. twice daily at home noticed that her heart rate was elevated having a lot of palpitations this evening when she presented to the ER her rate was around 150. She was given 3 rounds of Lopressor IV in the emergency department which did improve her rate to around 120. Patient was given additional dose of 80 mg sotalol in addition to her normal 80. Given that she is still tachycardic ED provider wishes to admit to observation for close monitoring and possible titration of medications. - Past Medical/Surgical History Diabetic: No -: A-fib -: Mitral Valve Prolapse -: High Cholesterol -: Encometrial CA -: Appy -: Left breast lumpectomy -: hysterectomy Psychosocial/ Personal History: Patient lives at home with family - Family History Father -: Heart disease, Hypertension Mother -: Heart disease, Hypertension Brother -: Other (see notes) - Social History Smoking Status: Never smoker Alcohol use: No CD- Drugs: No Caffeine use: No Place of Residence: Home <Wes Nino - Last Filed: 02/25/22 00:44> Date of Service: 02/25/22 <Phuc Solomon - Last Filed: 02/25/22 18:39> Allergies latex Allergy (Severe, Verified 06/16/21 21:35) Swollen lips morphine Allergy (Verified 02/25/22 05:09) Itching Home Medications: Aspirin 81 mg PO BEDTIME 06/18/13 Atorvastatin Calcium 40 mg PO BEDTIME 02/24/21 Sotalol HCl [Betapace*] 80 mg PO BID 30 Days #60 tab 06/17/21 Doxycycline Hyclate 100 mg PO BID 02/25/22 Losartan Potassium 50 mg PO DAILY 02/25/22 Review of Systems 10-point ROS is otherwise unremarkable Cardiovascular: Palpitations <Wes Nino - Last Filed: 02/25/22 00:44> Physical Examination - Physical Exam General: Alert, In no apparent distress, Oriented x3 HEENT: Atraumatic, PERRLA, Mucous membr. moist/pink, EOMI, Sclerae nonicteric Neck: Supple, 2+ carotid pulse no bruit, No LAD, Without JVD or thyroid abnormality Respiratory: Clear to auscultation bilaterally, Normal air movement Cardiovascular: Normal S1 S2, Irregular heart rate/rhythm Capillary refill: <2 Seconds Gastrointestinal: Normal bowel sounds, No tenderness Musculoskeletal: No tenderness Integumentary: No rashes Neurological: Normal gait, Normal speech, Normal strength at 5/5 x4 extr, Normal tone, Normal affect Lymphatics: No axilla or inguinal lymphadenopathy - Studies Laboratory Data (last 24 hrs) 02/24/22 21:22: WBC 8.8, Hgb 13.4, Hct 39.5, Plt Count 329 02/24/22 21:22: Sodium 138, Potassium 3.4 L, BUN 23 H, Creatinine 1.01, Glucose 210 H <Wes Nino - Last Filed: 02/25/22 00:44> - Studies Laboratory Data (last 24 hrs) 02/24/22 21:22: WBC 8.8, Hgb 13.4, Hct 39.5, Plt Count 329 02/24/22 21:22: Sodium 138, Potassium 3.4 L, BUN 23 H, Creatinine 1.01, Glucose 210 H <Phuc Solomon - Last Filed: 02/25/22 18:39> Assessment and Plan - Plan Assessment: Atrial fibrillation with rapid ventricular response Hypertension Hypokalemia Plan: Atrial fibrillation with rapid ventricular response: I have given patient additional dose of sotalol this evening, she also received 3 rounds of Lopressor IV. Her rate is currently around 115-120. Blood pressure stable, monitor on telemetry, cardiology consulted for additional recommendations. Patient has had recent stress test, echocardiogram which she reports to have been normal. We will add thyroid panel. Hypertension: Continue home medications Hypokalemia: Replaced in ER, protocol in place. DVT PPX: Lovenox Code status: Full Discharge Plan: Home Plan to discharge in: 24 Hours - Advance Directives Does patient have a Living Will: No Does patient have a Durable POA for Healthcare: No - Code Status/Comfort Care Code Status Assessed: Yes (Full code) Critical Care: No Time Spent Managing Pts Care (In Minutes): 55 <Wes Nino - Last Filed: 02/25/22 00:44> - Plan Agree with plan of care as noted above In addition, Patient has taken doxycycline for the last 2 days for left forearm wound after gardening QTC: 480, likely secondary to sotalol and potential worsened by doxycycline Discontinue doxycycline Heart rate better controlled now, 951 tens. Patient does not feel palpitations much. Feel more comfortable Denies any other change in medications, no recent illness Cardiology consulted -recommended increasing sotalol to 120 mg twice daily Repeat EKG after morning dose tomorrow <Phuc Solomon - Last Filed: 02/25/22 18:39>
[2022-02-25] MEDS ORDERED: ONDANSETRON 4 MG/2 ML VIAL IV PRN (04:28)
[2022-02-25 04:49] VITALS: BMI 25.0
[2022-02-25] MEDS ORDERED: SOTALOL HCL 80 MG TAB PO SCH ×2 (06:00→09:00)
[2022-02-25 06:05] LABS: Urine Appearance CLEAR (Clear); Urine Bilirubin NEGATIVE (Negative); Urine Blood NEGATIVE (Negative); Urine Color YELLOW (Yellow); Urine Glucose NEGATIVE (Negative); Urine Protein NEGATIVE (Negative); Urine Urobilinogen 0.2 mg/dL (0.2-1.0)
[2022-02-25 06:13] LABS: Urine Microscopic Reflex ORDER UMIC
[2022-02-25 06:16] LABS: Urine Bacteria <20 /HPF (<20); Urine RBC <5 /HPF (NONE SEEN)
[2022-02-25 06:38] LABS: Absolute Lymphocytes (CBC) 2.4 K/uL (0.7-4.9); Hematocrit 41.1 % (36.0-45.0); Lymphocytes % 30.3 % (15.3-44.8); MPV 8.3 fL (7.6-11.3); RBC Red Blood Cell Count 4.51 M/uL (3.86-4.86)
[2022-02-25 07:05] LABS: Albumin 3.7 g/dL (3.4-5.0); Bilirubin Total 0.4 mg/dL (0.2-1.0); Magnesium 2.2 mg/dL (1.8-2.4); Potassium 4.7 mmol/L (3.5-5.1); Thyroid Stimulating Hormone 1.36 uIU/mL (0.360-3.740)
[2022-02-25] MEDS: ASPIRIN EC 81 MG TAB PO SCH (08:46)
[2022-02-25] MEDS ORDERED: DOXYCYCLINE 100 MG CAP PO SCH (09:00)
[2022-02-25] MEDS ORDERED: LOSARTAN POTASSIUM 50 MG TABLET PO SCH (09:00)
[2022-02-25] MEDS ORDERED: ENOXAPARIN 40 MG/0.4 ML SQ SCH (09:00)
[2022-02-25] MEDS: SOTALOL HCL 80 MG TAB PO SCH (18:24)
[2022-02-25] MEDS: ATORVASTATIN 40 MG TAB PO SCH (20:13)
[2022-02-26 04:45] LABS: Absolute Lymphocytes (CBC) 3.5 K/uL (0.7-4.9); Hematocrit 41.1 % (36.0-45.0); Lymphocytes % 48.1 % (15.3-44.8); MPV 8.6 fL (7.6-11.3); RBC Red Blood Cell Count 4.53 M/uL (3.86-4.86)
[2022-02-26 05:05] LABS: Albumin 3.3 g/dL (3.4-5.0); Bilirubin Total 0.5 mg/dL (0.2-1.0); Magnesium 2.1 mg/dL (1.8-2.4); Potassium 3.8 mmol/L (3.5-5.1); Protein, Total 6.4 g/dL (6.4-8.2)
[2022-02-26] MEDS: SOTALOL HCL 80 MG TAB PO SCH ×2 (05:38→17:31)
--- NOTE | 2022-02-26 06:46 | P.PN ---
Date of Service: 02/26/22 Subjective: Remains in A. fib, still feeling some palpitations, especially when she ambulates Otherwise no new or worsening symptoms ROS: 10 point ROS as noted above, otherwise negative Physical exam GEN: Alert, oriented, NAD HEENT: Normal conjunctiva, sclera anicteric CV: Irregularly irregular rhythm, no edema Pulm: Nonlabored respirations on room air ABD: Soft, nontender, nondistended Neuro: Normal speech, normal affect Problem List Atrial fibrillation with rapid ventricular response Hypertension Hypokalemia Continue sotalol increased dose 120 mg twice daily Patient's [id number] is 2, will be 3 later this year when she turns 67. Remains in A. fib, increase Lovenox to therapeutic dose Repeat EKG with slightly shorter QTC Cardiology consulted, to assess today and further recommendations afterwards Continue antihypertensive VTE: Lovenox, therapeutic dose Code: Full Dispo: Home, 1-2 days Time Spent Managing Pts Care (In Minutes): 35
[2022-02-26] MEDS ORDERED: POTASSIUM CL SA 10 MEQ TAB PO ONE (09:00)
[2022-02-26] MEDS: ASPIRIN EC 81 MG TAB PO SCH (09:08)
[2022-02-26] MEDS: ENOXAPARIN 80 MG/0.8 ML SQ SCH ×2 (09:08→21:14)
[2022-02-26] MEDS ORDERED: ACETAMINOPHEN 500 MG TAB PO PRN (10:18)
[2022-02-26] MEDS: LOSARTAN POTASSIUM 50 MG TABLET PO SCH (12:46)
[2022-02-26] MEDS: ATORVASTATIN 40 MG TAB PO SCH (21:14)
--- NOTE | 2022-02-26 21:25 | CON ---
Date of Consultation: 02/26/2022 Reason For Consultation: Atrial fibrillation with rapid ventricular response. History Of Present Illness: A 66-year-old female with a history of chronic atrial fibrillation, who was controlled on sotalol for some time. She is on 80 mg twice a day, comes in with palpitations, di zziness, shortness of breath. No chest pain. Heart rate was in 150s and then after admitting her in using beta naye, heart rate is down and patient is feeling better. Past Medical History: Atrial fibrillation, mitral valve prolapse, endometrial carcinoma. Medications: Refer reconciliation sheet for detailed list. Allergies: LATEX AND MORPHINE. Family History: No premature coronary artery disease or cancer. Social History: Does not smoke or drink. Does not use any drugs. Review of Systems: All systems reviewed and they were negative except mentioned in HPI. Physical Examination: Vital Signs: Reviewed. Head and Neck: Pupils are equal, reactive to light. Intact eye movements. No JVD. No cervical lymp hadenopathy. Neck: Supple. Thyroid is not enlarged. Lungs: Clear to auscultation bilaterally. No rhonchi, rales, or crackles. No accessory muscle use. Heart: Irregularly irregular. No extra sounds. Abdomen: Soft, nontender. Bowel sounds positive. No organomegaly. No masses or hernia. No rigidi ty or rebound. Extremities: No edema, clubbing, or cyanosis. Intact pulses. Skin: No rash. Neurologic: Alert, awake, and oriented x3. No acute focal deficits appreciated. Lymph nodes: No cervical lymphadenopathy. Investigations: Labs were reviewed. Assessment And Recommendation: Atrial fibrillation with rapid ventricular response. Sotalol was inc reased to 120 mg twice a day. She continues to be in atrial fibrillation with rate as fast. I recom mend to add Cardizem 30 mg q.8 hours for now, and once her heart rate is controlled, to switch to dilip g-acting. Also given the fact that she is hypertensive and female who will give her a Chads Vasc sco re of 2 at least, so I recommend starting anticoagulation with Eliquis 5 mg twice a day and discontin ue Lovenox. I will monitor the patient with you. Thank you for the consult. SR/MODL Voice ID: [id number] Report ID: [id number]
[2022-02-26] MEDS ORDERED: DILTIAZEM HCL 60 MG TAB PO SCH (22:00)
[2022-02-27 04:30] LABS: Potassium 4.2 mmol/L (3.5-5.1)
[2022-02-27] MEDS: SOTALOL HCL 80 MG TAB PO SCH ×2 (06:03→18:01)
--- NOTE | 2022-02-27 06:32 | P.PN ---
Date of Service: 02/27/22 Subjective: slight improvement, HR remains 90-110s still feels palpitations ROS: 10 point ROS as noted above, otherwise negative Physical exam GEN: Alert, oriented, NAD HEENT: Normal conjunctiva, sclera anicteric CV: Irregularly irregular rhythm, no edema Pulm: Nonlabored respirations on room air ABD: Soft, nontender, nondistended Neuro: Normal speech, normal affect Problem List Atrial fibrillation with rapid ventricular response Hypertension Hypokalemia Continue sotalol increased dose 120 mg twice daily Patient's [id number] is 2, will be 3 later this year when she turns 67. Remains in A. fib, started eliquis Repeat EKG with slightly shorter QTC Cardiology consulted, recommended addition of cardizem blood pressure low-normal, hold home anti-hypertensive VTE: eliquis Code: Full Dispo: Home, 1-2 days Time Spent Managing Pts Care (In Minutes): 35
[2022-02-27] MEDS: DILTIAZEM HCL 60 MG TAB PO SCH ×3 (08:47→20:43)
[2022-02-27] MEDS: ASPIRIN EC 81 MG TAB PO SCH (08:48)
[2022-02-27] MEDS: APIXABAN 5 MG TABLET PO SCH ×2 (08:48→20:44)
[2022-02-27] MEDS: LOSARTAN POTASSIUM 50 MG TABLET PO SCH (08:48)
[2022-02-27] MEDS ORDERED: DILTIAZEM HCL 60 MG TAB PO SCH (09:00)
[2022-02-27] MEDS: ATORVASTATIN 40 MG TAB PO SCH (20:44)
[2022-02-28] MEDS: SOTALOL HCL 80 MG TAB PO SCH (05:31)
--- NOTE | 2022-02-28 06:40 | P.PN ---
Date of Service: 02/28/22 Subjective: continues in afib, symptomatic, BP low-normal no new symptoms/ no worsening of symptoms ROS: 10 point ROS as noted above, otherwise negative Physical exam GEN: Alert, oriented, NAD HEENT: Normal conjunctiva, sclera anicteric CV: Irregularly irregular rhythm, no edema Pulm: Nonlabored respirations on room air ABD: Soft, nontender, nondistended Neuro: Normal speech, normal affect Problem List Paroxysmal Atrial fibrillation with rapid ventricular response Hypertension Hypokalemia sotalol increased to 120mg, cardizem added per cardiology recommendations patient remains in afib in similar rates, with slight improvement remains symptomatic discussed with cardiology - dc sotalol/cardizem , give amio bolus and drip; if patient converts, possibly transitioning back to sotalol on discharge Patient's [id number] is 2, will be 3 later this year when she turns 67. Remains in A. fib, started eliquis this hospitalization Patient was only on aspirin at home, was in normal sinus rhythm until this event Repeat EKG with improved QTc blood pressure low-normal, hold home anti-hypertensive VTE: eliquis Code: Full Dispo: Home, 1-2 days, f/u amio drip Time Spent Managing Pts Care (In Minutes): 35
[2022-02-28] MEDS: ASPIRIN EC 81 MG TAB PO SCH (08:28)
[2022-02-28] MEDS: APIXABAN 5 MG TABLET PO SCH ×2 (08:29→21:27)
[2022-02-28] MEDS: LOSARTAN POTASSIUM 50 MG TABLET PO SCH (08:29)
[2022-02-28] MEDS: DILTIAZEM HCL 60 MG TAB PO SCH ×2 (08:29→14:00)
[2022-02-28 12:33] VITALS: O2SAT 95
[2022-02-28] MEDS ORDERED: AMIODARONE HCL 150 MG in D5W 100 ML IV STA (14:18)
[2022-02-28] MEDS ORDERED: AMIODARONE HCL 900 MG in Dextrose 5%-Water 482 ML IV SCH (15:00)
--- NOTE | 2022-02-28 19:49 | PN ---
Date of Progress Note: 02/28/2022 Subjective: Seen by bedside. She continues to be in atrial fibrillation, asymptomatic, short of tommy ath. Denies having any chest pain. Heart rate is running between 110 and 120 even with the Cardizem on board. Review of Systems: No chest pain, but also shortness of breath on exertion and palpitations. No nausea, vomiting, or di arrhea. No abdominal pain. All other systems reviewed and are negative. Physical Examination: Vital Signs: Reviewed. Head and Neck: Pupils are equal, reactive to light. Intact eye movements. No JVD. No cervical lym phadenopathy. Neck is supple. Thyroid is not enlarged. Lungs: Clear to auscultation bilaterally. No rhonchi, rales, or crackles. No accessory muscle use. Heart: Irregularly irregular. No extra sounds. Abdomen: Soft and nontender. Bowel sounds positive. No organomegaly. No masses or hernia. No rig idity or rebound. Extremities: No clubbing or cyanosis. Intact pulses. Skin: No rashes. Neurologic: Alert, awake, and oriented x3. No acute focal deficits appreciated. Investigations: Labs were reviewed. Assessment And Recommendation: Atrial fibrillation. She is still symptomatic and rate is not contro lled. She is not responding to higher dose of sotalol. Discontinue sotalol and Cardizem and then we will load with IV amiodarone in an attempt to cardiovert to sinus rhythm. This patient was just sta rted on anticoagulant with Eliquis, so electrical cardioversion is not a good option, hoping that she will convert to sinus rhythm on amiodarone and if she does, I will place her back on sotalol and Maricruz lupillo. If she does not convert to sinus rhythm, then she will need to be on oral medication including Eliquis for 4 weeks prior to cardiovers ion. SR/MODL Voice ID: [id number] Report ID: [id number]
[2022-02-28] MEDS: ATORVASTATIN 40 MG TAB PO SCH (21:27)
[2022-03-01 05:14] LABS: Magnesium 2.5 mg/dL (1.8-2.4); Potassium 4.6 mmol/L (3.5-5.1)
[2022-03-01] MEDS: LOSARTAN POTASSIUM 50 MG TABLET PO SCH (07:59)
[2022-03-01] MEDS: ASPIRIN EC 81 MG TAB PO SCH (07:59)
[2022-03-01] MEDS: APIXABAN 5 MG TABLET PO SCH (07:59)
--- NOTE | 2022-03-01 08:59 | EKG ---
Test Date: 2022-02-28 Test Time: 21:57:06 Ophthalmologist Retina Specialist: RT-O MEASUREMENT RESULTS: Intervals: Rate: 76 MI: 178 QRSD: 86 QT: 446 QTc: 501 [place]: P: 29 MI: 178 QRS: 1 T: 37 INTERPRETIVE STATEMENTS: Normal sinus rhythm Septal infarct, age undetermined Abnormal ECG Compared to ECG 02/26/2022 07:44:35 Myocardial infarct finding now present Atrial fibrillation no longer present ST (T wave) deviation no longer present Possible ischemia no longer present Electronically Signed On 03-01-22 08:58:13 CDT by Anthony Lawton
[2022-03-01] MEDS ORDERED: DRONEDARONE 400 MG TAB PO SCH (10:00)
--- NOTE | 2022-03-01 10:39 | P.DS ---
Admission Date: 02/26/22 Discharge Date: 03/01/22 Disposition: ROUTINE DISCHARGE Discharge Condition: FAIR Reason for Admission: A. fib RVR - Problems (1) Atrial fibrillation with RVR Current Visit: Yes Status: Acute (2) Essential hypertension Current Visit: Yes Status: Acute Brief History of Present Illness: 66-year-old female with history of atrial fibrillation, hypertension and endometrial cancer status post hysterectomy presents emergency department for A. fib RVR. Patient reports that she takes sotalol 80 mg p.o. twice daily at home noticed that her heart rate was elevated having a lot of palpitations this evening when she presented to the ER her rate was around 150. She was given 3 rounds of Lopressor IV in the emergency department which did improve her rate to around 120. Patient was given additional dose of 80 mg sotalol in addition to her normal 80. Given that she was still tachycardic, she admitted for further management. Hospital Course: Diagnosis Paroxysmal Atrial fibrillation with rapid ventricular response Hypertension Hypokalemia Patient admitted to the medical floor, her sotalol dose increased. She was seen in consultation by cardiology and Cardizem added but patient heart rate was refractory. She was symptomatic. Patient was then transferred to the ICU on amiodarone drip. Cardizem and sotalol discontinued. Patient spontaneously converted to sinus rhythm on the amiodarone drip. She was also put on Eliquis for A. fib anticoagulation. Patient has remained in sinus rhythm since she spontaneously converted. At this point cardiology recommended dronedarone. Vitals has been stable. Patient deemed stable for discharge by cardiology. Vital Signs/Physical Exam: Temp Pulse Resp BP Pulse Ox 97 F 71 18 108/68 92 03/01/22 04:00 03/01/22 04:00 03/01/22 04:00 03/01/22 04:00 03/01/22 04:00 General: Alert, In no apparent distress, Oriented x3 HEENT: Mucous membr. moist/pink Neck: JVD not distended Respiratory: Clear to auscultation bilaterally, Normal air movement Cardiovascular: No edema, Regular rate/rhythm, Normal S1 S2 Gastrointestinal: Soft and benign, Non-distended Musculoskeletal: No swelling Integumentary: No rashes Neurological: Normal strength at 5/5 x4 extr Laboratory Data at Discharge: WBC 7.2 K/uL (4.3-10.9) 02/26/22 04:05 Hgb 13.6 g/dL (12.0-15.0) 02/26/22 04:05 Hct 41.1 % (36.0-45.0) 02/26/22 04:05 Plt Count 282 K/uL (152-406) 02/26/22 04:05 Sodium 140 mmol/L (136-145) 03/01/22 04:41 Potassium 4.6 mmol/L (3.5-5.1) 03/01/22 04:41 BUN 24 mg/dL (7-18) H 03/01/22 04:41 Creatinine 1.06 mg/dL (0.55-1.3) 03/01/22 04:41 Glucose 104 mg/dL (74-106) 03/01/22 04:41 Magnesium 2.5 mg/dL (1.8-2.4) H 03/01/22 04:41 Total Bilirubin 0.5 mg/dL (0.2-1.0) 02/26/22 04:05 AST 15 U/L (15-37) 02/26/22 04:05 ALT 23 U/L (12-78) 02/26/22 04:05 Alkaline Phosphatase 83 U/L (45-117) 02/26/22 04:05 Home Medications: Aspirin 81 mg PO BEDTIME 06/18/13 Atorvastatin Calcium 40 mg PO BEDTIME 02/24/21 Doxycycline Hyclate 100 mg PO BID 02/25/22 Losartan Potassium 50 mg PO DAILY 02/25/22 Apixaban [Eliquis] 5 mg PO BID #60 tablet 03/01/22 Dronedarone [Multaq*] 400 mg PO BID #60 tab 03/01/22 New Medications: Apixaban [Eliquis] 5 mg PO BID #60 tablet Dronedarone [Multaq*] 400 mg PO BID #60 tab Physician Discharge Instructions: PROBLEM: A fib RVR GOAL: Clear understanding of disease process INSTRUCTIONS:Take medications as prescribed, don't stop medications until you speak with physician Diet: AHA Activity: Ad rosa DME DME: Date Ordered: Name of Company: [employer] Services Needed: None Name of Company: Date or Referral: IMMUNIZATION Influenza Vaccine Indicated: Influenza Vaccine Given: Date Given: Pneumonia Vaccine Indicated: No Pneumonia Vaccine Given: Date Given: Diet: AHA Activity: Ad rosa Followup: Lan Mckeon MD [Primary Care Provider] - Anthony Lawton MD [ACTIVE - CAN ADMIT] - 1 Week Time spent managing pt's care (in minutes): 37
[2022-03-01 10:47] VITALS: TEMP 97.2
[2022-03-01 15:04] VITALS: BP 138/93
--- NOTE | 2022-03-03 11:51 | PN ---
Date of Progress Note: 03/01/2022 Ms. Jean is a 66-year-old, was admitted with recurrent atrial fibrillation. Sotalol was increased t o 160 b.i.d. She was given Cardizem, remained in atrial fibrillation. Dr. Oscar switched her from sotalol to amiodarone IV and she converted to sinus rhythm. The plan is to discontinue the IV amioda courtney, discontinue her Cardizem. I am going to put her on Multaq 400 b.i.d. She will continue Eliqui s 5 mg 1 p.o. b.i.d. I will see her in the office soon. She can go home. If her atrial fibrillatio n reoccurs, she will need an ablation. TONY/NAWAF Voice ID: [id number] Report ID: [id number]
== END 2022-03-01 15:00 | disposition home or self-care (01) | DRG 310 ==
LOC: ER 20:38 → ERHOLD 02-25 00:38 → 2ND 02-25 04:12 → OBSVTOIN 02-26 17:36 → 3RD-ICU 02-28 14:53
PROVIDERS: ADMIT Hospitalist; ATTEND Hospitalist
DX: I48.0 Paroxysmal atrial fibrillation (principal); I10 Essential (primary) hypertension; E87.6 Hypokalemia; Z20.822 Contact with and (suspected) exposure to COVID-19; Z85.42 Personal history of malignant neoplasm of other parts of uterus; Z91.040 Latex allergy status
CPT/HCPCS: 36415; 71045; 80048; 80053; 81003; 81015; 83735; 84439; 84443; 84484; 85025; 93005; 96374; 99285; G0378; J0282; J1650; J7060; U0003

== ENCOUNTER 2022-06-26 20:04 | Emergency (ER) | payer BC, OTHER ==
--- OUTSIDE RECORDS SUMMARY | 2022-06-26 20:08 | XMS REPORT | Continuity of Care Document ---
:1955 Author Organization [facility] t Address [address] [place] [address] Care Team Providers Name Role Phone Dipika Lane MD Primary Care Physician [phone] JAVY ALEX Attending Clinician Unavailable SYSTEM, PROVIDER NOT IN Attending Clinician Unavailable JAVY ALEX Attending Clinician Unavailable Javy Alex MD Attending Clinician [phone] JAVY ALEX Admitting Clinician Unavailable Payers Payer Name Policy Type Policy Number Effective Date Expiration Date S ource AETNA [facility] [id number] 2020 00:00:00 ACCESS OPEN ACCESS [id number] HMO/POS/EPO/PPO - [employer]ET[employer] OUT OF STATE BCBS [id number] - PPO - BCBS Problems Condition Condition Condition Status Onset Resolution Last Treating Co mments Source Name Details Category Date Date Treatment Clinician Date Malignant Malignant Disease Active [place] [facility] neoplasm neoplasm 5-12 Colleg e of of 00:00: of overlappin overlappin 00 Me dicin g sites of g sites of e body of body of uterus uterus (HCCode) (HCCode) Allergies, Adverse Reactions, Alerts Allergy Allergy Status Severity Reaction(s) Onset Inactive Treating Comm ents Source Name Type Date Date Clinician LATEX Allergy [facility] MORPHINE Allergy Active Itching [facility] Latex Propensi Active Swelling Swelling [facility] to 03[facility]25 of [facility], College adverse 00:00: tingling of reaction 00 of tongue Medic in s to e substanc e Opioid Propensi Active Itching [facility] Analgesi ty to 12 College cs adverse 00:00: of reaction 00 Medicin s to e drug Social History Social Habit Start Date Stop Date Quantity Comments Source History of tobacco Cigarette Smoker [facility] use of Medicine Exposure to 2022-04-29 2022-05-09 Not sure [facility] Colle e SARS-CoV-2 (event) 00:00:00 09:06:00 of Med icine Alcohol intake 2022-05-09 2022-05-09 Lifetime [facility] Col lege 00:00:00 00:00:00 non-drinker of Medicine (finding) Cigarette 2021-03-24 2021-03-24 [facility] pack-years 00:00:00 00:00:00 of Medicine Tobacco use and 2021-03-24 2021-03-24 Smokeless tobacco [facility] exposure 00:00:00 00:00:00 non-user of Medicine Sex Ass[birth year] F [facility] Co llege 00:00:00 00:00:00 of Medicine Smoking Status Start Date Stop Date Source Never smoked tobacco [facility] Iliana ege of Medicine Medications Ordered Filled Start Stop Current Ordering Indication Dosage Frequency Signature Comments Components Source Medication Medication Date Date Medication? Clinician (SIG) Name Name atorvastati Yes 40mg Take 40 mg [facility] n (LIPITOR) 05-09 by mouth [place] ege 40 MG 09:18: daily. of tablet 28 Medicin e ASPIRIN 81 2021- No Take by [place] [facility] OR 05-09 mouth. College 09:17: 00:00 of 00 :00 Medicin e ELIQUIS 5 Yes TAKE 1 Gal MG TABS 6-13 TABLET BY [facility] 00:00: MOUTH of 00 TWICE Medicin DAILY e MULTAQ 400 2021-0 Yes TAKE 1 [facility] MG TABS 5-16 TABLET BY [facility] 00:00: MOUTH of 00 TWICE Medicin DAILY WITH e THE MORNING AND EVENING MEAL atorvastati 2021-0 Yes 40mg Take 40 mg Gal n (LIPITOR) 3-28 by mouth Iliana ege 40 MG 09:11: daily. of tablet 26 Medicin e Cholecalcif 2021-0 Yes Take by [place] [facility] charity 3-28 mouth. [facility] ([facility]) 09:11: of 625 MCG 26 Medicin (67557 UT) e CAPS ASPIRIN 81 2021-0 Yes Take by [facility] OR 3-28 mouth. [facility] 09:11: of 26 Medicin e Multiple 2021-0 Yes Take by Gal Vitamin 3-28 mouth. [facility] (MULTIVITAM 09:11: of IN ADULT 26 Medicin OR) e Bioflavonoi 2021-0 Yes Take by [place] d Products 3-28 mouth. [facility] (GRAPE SEED 09:11: of OR) 26 Medicin e Cholecalcif 2021-0 Yes Take by [place] [facility] charity 3-28 mouth. [facility] ([facility]) 09:11: of 625 MCG 26 Medicin (62174 UT) e CAPS Multiple 2021-0 Yes Take by Gal Vitamin 3-28 mouth. [facility] (MULTIVITAM 09:11: of IN ADULT 26 Medicin OR) e Bioflavonoi 2021-0 Yes Take by [place] d Products 3-28 mouth. [facility] (GRAPE SEED 09:11: of OR) 26 Medicin e atorvastati 2020- Yes 40mg Take 40 mg Gal n (LIPITOR) 2-27 by mouth [place]iana ege 40 MG 09:02: daily. of tablet 11 Medicin e Cholecalcif 2020-11 Yes Take by [place] charity 2-27 mouth. [facility] ([facility]) 09:02: of 625 MCG 11 Medicin (40365 UT) e CAPS ASPIRIN 81 2020-11 Yes Take by [facility] OR 2-27 mouth. [facility] 09:02: of 11 Medicin e Multiple 2020-11 Yes Take by Gal Vitamin 2-27 mouth. [facility] (MULTIVITAM 09:02: of IN ADULT 11 Medicin OR) e Bioflavonoi 2020-11 Yes Take by [place] d Products 2-27 mouth. [facility] (GRAPE SEED 09:02: of OR) 11 Medicin e losartan 2020-0 Yes [facility] (COZAAR) 50 9-28 College MG tablet 00:00: of 00 Medicin e losartan 202-0 Yes Gal (COZAAR) 50 9-28 College MG tablet 00:00: of 00 Medicin e losartan 202-0 Yes [facility] (COZAAR) 50 9-28 College MG tablet 00:00: of 00 Medicin e atorvastati 2020-0 Yes 40mg Take 40 mg [facility] n (LIPITOR) 9 by mouth [place]iana ege 40 MG 09:37: daily. of tablet 52 Medicin e Cholecalcif 2020-0 Yes Take by [place] [facility] charity 08-09 mouth. [facility] ([facility]) 09:37: of 625 MCG 52 Medicin (50508 UT) e CAPS ASPIRIN 81 2020-0 Yes Take by [facility] OR 08-09 mouth. [facility] 09:37: of 52 Medicin e Multiple 2020-0 Yes Take by [facility] Vitamin - mouth. [facility] (MULTIVITAM 09:37: of IN ADULT 52 Medicin OR) e Bioflavonoi 2020-0 Yes Take by [place] d Products 08-09 mouth. [facility] (GRAPE SEED 09:37: of OR) 52 Medicin e atorvastati 2020-0 Yes 40mg Take 40 mg [facility] n (LIPITOR) 08-09 by mouth Iliana ege 40 MG 09:37: daily. of tablet 52 Medicin e Cholecalcif 2020-0 Yes Take by [place] [facility] charity 08-09 mouth. [facility] ([facility]) 09:37: of 625 MCG 52 Medicin (09520 UT) e CAPS ASPIRIN 81 2020-0 Yes Take by [facility] OR - mouth. [facility] 09:37: of 52 Medicin e Multiple 2020-0 Yes Take by [facility] Vitamin - mouth. [facility] (MULTIVITAM 09:37: of IN ADULT 52 Medicin OR) e Bioflavonoi 2020-0 Yes Take by [place] d Products 08-09 mouth. [facility] (GRAPE SEED 09:37: of OR) 52 Medicin e atenolol 2020-0 1- No 50mg 50 mg two [place] [facility] (TENORMIN) 08-09-27 times College 100 MG 09:37: 00:00 daily. of tablet 28 :00 Medicin e atenolol 0 2020- No 50mg 50 mg two [place] [facility] (TENORMIN) 08-09 09-27 times College 100 MG 09:37: 00:00 daily. of tablet 28 :00 Medicin e sotalol 2020-0 Yes Gal (BETAPACE) 8-05 College 80 MG 00:00: of tablet 00 Medicin e sotalol 0 Yes Gal (BETAPACE) 8-05 College 80 MG 00:00: of tablet 00 Medicin e sotalol 0 Yes Gal (BETAPACE) 8-05 College 80 MG 00:00: of tablet 00 Medicin e sotalol 0 Yes [facility] (BETAPACE) 8-05 College 80 MG 00:00: of tablet 00 Medicin e sotalol 0 2021- No [facility] (BETAPACE) 805-09 College 80 MG 00:00: 00:00 of tablet 00 :00 Medicin e atenolol 0 Yes 50mg 50 mg two [facility] (TENORMIN) 6- times College 100 MG 08:41: daily. of tablet 46 Medicin e atorvastati Yes 40mg Take 40 mg [facility] n (LIPITOR) 6-07 by mouth [place] ege 40 MG 08:41: daily. of tablet 46 Medicin e Cholecalcif Yes Take by [place] [facility] charity 6-07 mouth. College () 08:41: of 625 MCG 46 Medicin (51099 UT) e CAPS ASPIRIN 81 0 Yes Take by [facility] OR 6-07 mouth. College 08:41: of 46 Medicin e Multiple 0 Yes Take by [facility] Vitamin 6-07 mouth. College (MULTIVITAM 08:41: of IN ADULT 46 Medicin OR) e Bioflavonoi 0 Yes Take by [place] [facility] d Products 6-07 mouth. College (GRAPE SEED 08:41: of OR) 46 Medicin e ibuprofen 0 Yes 600mg Take 1 [facility] (MOTRIN) 5-19 Tablet by [place] e 600 MG 00:00: mouth of tablet 00 every 6 Medicin hours as e needed for Pain. docusate 2020-0 Yes 100mg Take 1 [facility] sodium 5-19 capsule by [facility] (COLACE) 00:00: mouth two of 100 MG [...] hours as e needed for Pain. docusate 0 Yes 100mg Take 1 Gal sodium 5-19 capsule by [facility] (COLACE) 00:00: mouth two of 100 MG 00 times Medicin capsule daily. e tramadol 2020- Yes 1{tbl} Take 1 [facility] (ULTRAM) [...] Pain. docusate 2020-0 Yes 100mg Take 1 [facility] sodium 5-19 capsule by [facility] (COLACE) 00:00: mouth two of 100 MG 00 times Medicin capsule daily. e tramadol 2020-0 Yes 1{tbl} Take 1 [facility] (ULTRAM) 50 5-19 Tablet by Col lege MG tablet 00:00: mouth of 00 every 6 Medicin hours as e needed for Pain. docusate 0 Yes 100mg Take 1 [facility] sodium 5-19 capsule by [facility] (COLACE) 00:00: mouth two of 100 MG [...] Take 1 Gal sodium 5-19 capsule by [facility] (COLACE) 00:00: mouth two of 100 MG [...] for Pain. docusate Yes 100mg Take 1 [facility] sodium 5-19 capsule by [facility] (COLACE) 00:00: mouth two of 100 MG 00 times Medicin capsule daily. e tramadol Yes 1{tbl} Take 1 [facility] (ULTRAM) 50 5-19 Tablet by Col lege MG tablet 00:00: mouth of 00 every 6 Medicin hours as e needed for Pain. ibuprofen 2021- No 600mg Take 1 [facility] (MOTRIN) 5-19 - Tablet by Colle ge 600 MG 00:00: 00:00 mouth of tablet 00 :00 every 6 Medicin hours as e needed for Pain. Vital Signs Vital Name Observation Time Observation Value Comments Source HEIGHT 2021-04-01 08:00:00 167.6 cm WEIGHT 2021-04-01 08:00:00 68.2 kg HEIGHT 2021-03-25 15:01:00 167.6 cm WEIGHT 2021-03-25 15:01:00 69.4 kg Systolic blood 2022-05-09 14:16:00 126 mm[Hg] [facility] pressure Medicine Diastolic blood 2022-05-09 14:16:00 86 mm[Hg] [facility] pressure Medicine Heart rate 2022-05-09 14:16:00 93 /min [facility] Body temperature 2022-05-09 14:16:00 36.67 Jessica [facility] Body height 2022-05-09 14:16:00 167.6 cm [facility] Body weight 2022-05-09 14:16:00 68.947 kg [facility] C ollege of Medicine BMI 2022-05-09 14:16:00 24.53 kg/m2 [facility] C ollege of Medicine Systolic blood 2022-02-07 14:11:00 157 mm[Hg] [facility] of pressure Medicine Diastolic blood 2022-02-07 14:11:00 105 mm[Hg] [facility] of pressure Medicine Heart rate 2022-02-07 14:11:00 80 /min [facility] C ollege of Medicine Body temperature 2022-02-07 14:11:00 36.67 Jessica [facility] Body height 2022-02-07 14:11:00 167.6 cm [facility] C ollege of [facility] Body weight 2022-02-07 14:11:00 69.4 kg [facility] C ollege of Medicine BMI 2022-02-07 14:11:00 24.69 kg/m2 [facility] ollege of [facility] Heart rate 2021-11-08 15:00:00 77 /min [facility] C ollege of Medicine Body temperature 2021-11-08 15:00:00 36.67 Jessica [facility] Body height 2021-11-08 15:00:00 167.6 cm [facility] C ollege of Medicine Body weight 2021-11-08 15:00:00 69.854 kg [facility] ollege of Medicine BMI 2021-11-08 15:00:00 24.86 kg/m2 [facility] ollege of Medicine Systolic blood 2021-11-08 15:00:00 156 mm[Hg] [facility] of pressure Medicine Diastolic blood 2021-11-08 15:00:00 78 mm[Hg] [facility] of pressure Medicine Systolic blood 2021-08-09 14:38:00 137 mm[Hg] [facility] of pressure Medicine Diastolic blood 2021-08-09 14:38:00 97 mm[Hg] [facility] of pressure Medicine Heart rate 2021-08-09 14:38:00 84 /min [facility] ollege of Medicine Body temperature 2021-08-09 14:38:00 36.67 Jessica [facility] Body height 2021-08-09 14:38:00 167.6 cm [facility] ollege of [facility] Body weight 2021-08-09 14:38:00 68.493 kg [facility] ollege of [facility] BMI 2021-08-09 14:38:00 24[facility]37 [facility] 2021-04-19 13:40:00 165 mm[Hg] [facility] pressure Medicine Diastolic blood 2021-04-19 13:40:00 104 mm[Hg] [facility] Medicine Heart rate 2021-04-19 13:40:00 77 /min [facility] ollege of [facility] Body temperature 2021-04-19 13:40:00 36.67 Jessica [facility] Body height 2021-04-19 13:40:00 167.6 cm [facility] ollege of [facility] Body weight 2021-04-19 13:40:00 68.[facility] 2021-04-19 13:40:00 24.37 kg[facility]m2 [facility] Systolic blood 2021-04-19 13:40:00 165 mm[Hg] [facility] pressure Medicine Diastolic blood 2021-04-19 13:40:00 104 mm[Hg] [facility] Medicine Heart rate 2021-04-19 13:40:00 77 /min [facility] Body temperature 2021-04-19 13:40:00 36.67 Jessica [facility] Body height 2021-04-19 13:40:00 [facility].6 [facility] Body weight 2021-04-19 13:40:00 68.493 [facility] BMI 2021-04-19 13:40:00 24.37 kg[facility]m2 [facility] HEIGHT 2021-04-01 08:00:00 167.6 cm WEIGHT 2021-04-01 08:00:00 68.2 kg HEIGHT 2021-03-25 15:01:00 167.6 cm WEIGHT 2021-03-25 15:01:00 69.4 kg Procedures This patient has no known procedures. Plan of Care Planned Activity Planned Date Details Comments Source Future Scheduled 2022-05-09 Screening for malignant [facility] College Test 09:48:12 neoplasm of colon of Medicin e (procedure) [code = 706609158] Future Scheduled 2022-05-09 Screening for malignant [facility] College Test 09:48:12 neoplasm of breast of Medici ne (procedure) [code = 435601918] Future Scheduled 2022-05-09 COVID-19 Vaccine (#1) [employer] [employer] Test 09:48:12 [code = COVID-19 of Medicine Vaccine (#1)] Future Scheduled 2022-05-09 TETANUS SHOT (ADULT) [place] [facility] Test 09:48:12 [code = TETANUS SHOT of Medi cine (ADULT)] Future Scheduled 2022-05-09 Hepatitis C screening [employer] [employer] Test 09:48:12 (procedure) [code = of Medic ine 720135501] Future Scheduled 2022-05-09 Human immunodeficiency [facility] Test 09:48:12 virus screening of Medicine (procedure) [code = 288013879] Future Scheduled 2022-05-09 ZOSTER VACCINE (1 of 2) [facility] Test 09:48:12 [code = ZOSTER VACCINE of Nd dicine (1 of 2)] Future Scheduled 2022-05-09 FLU VACCINE > 6 MONTHS [facility] Test 09:48:12 [code = FLU VACCINE > 6 of M edicine MONTHS] Future Scheduled 2022-05-09 Screening for malignant Gal [facility] Test 09:48:12 neoplasm of cervix of Medici ne (procedure) [code = 760809686] Future Scheduled 2022-02-07 Screening for malignant [facility] College Test 09:25:55 neoplasm of colon of Medicin e (procedure) [code = 523241478] Future Scheduled 2022-02-07 Screening for malignant [facility] Test 09:25:55 neoplasm of breast of Medici ne (procedure) [code = 424696580] Future Scheduled 2022-02-07 COVID-19 Vaccine (1) [place] [facility] Test 09:25:55 [code = COVID-19 of Medicine Vaccine (1)] Future Scheduled 2022-02-07 TETANUS SHOT (ADULT) [place] [facility] Test 09:25:55 [code = TETANUS SHOT of Medi cine (ADULT)] Future Scheduled 2022-02-07 Hepatitis C screening [employer] Test 09:25:55 (procedure) [code = of Medic ine 917619842] Future Scheduled 2022-02-07 Human immunodeficiency B [facility] Test 09:25:55 virus screening of Medicine (procedure) [code = 578093760] Future Scheduled 2022-02-07 Screening for malignant [facility] Test 09:25:55 neoplasm of cervix of Medici ne (procedure) [code = 843734850] Future Scheduled 2022-02-07 ZOSTER VACCINE (1 of 2) [facility] Test 09:25:55 [code = ZOSTER VACCINE of Me dicine (1 of 2)] Future Scheduled 2022-02-07 FLU VACCINE > 6 MONTHS B [facility] College Test 09:25:55 [code = FLU VACCINE > 6 of M edicine MONTHS] Future Scheduled 2022-02-07 PAP SMEAR - IMAGE Ordered: [facility] Test 09:16:11 GUIDED - NON MEDICARE 02/07/2022 of Med icine [code = NOCPT] Future Scheduled 2021-11-08 Screening for malignant [facility] Test 09:01:19 neoplasm of colon of Medicin e (procedure) [code = 940675567] Future Scheduled 2021-11-08 Screening for malignant [facility] Test 09:01:19 neoplasm of breast of Medici ne (procedure) [code = 095501233] Future Scheduled 2021-11-08 COVID-19 Vaccine (1) [facility] Test 09:01:19 [code = COVID-19 of Medicine Vaccine (1)] Future Scheduled 2021-11-08 TETANUS SHOT (ADULT) [facility] Test 09:01:19 [code = TETANUS SHOT of Medi cine (ADULT)] Future Scheduled 2021-11-08 Hepatitis C screening [facility] Test 09:01:19 (procedure) [code = of Medic ine 535805830] Future Scheduled 2021-11-08 Human immunodeficiency B [facility] Test 09:01:19 virus screening of Medicine (procedure) [code = 159611140] Future Scheduled 2021-11-08 Screening for malignant [facility] Test 09:01:19 neoplasm of cervix of Medici ne (procedure) [code = 908109731] Future Scheduled 2021-11-08 ZOSTER VACCINE (1 of 2) [facility] Test 09:01:19 [code = ZOSTER VACCINE of Me dicine (1 of 2)] Future Scheduled 2021-11-08 FLU VACCINE > 6 MONTHS [employer] Test 09:01:19 [code = FLU VACCINE > 6 of M edicine MONTHS] Future Scheduled 2021-08-09 Screening for malignant [facility] Test 09:40:25 neoplasm of colon of Medicin e (procedure) [code = 548118567] Future Scheduled 2021-08-09 Screening for malignant [facility] Test 09:40:25 neoplasm of breast of Medici ne (procedure) [code = 120866626] Future Scheduled 2021-08-09 COVID-19 Vaccine (1) [place] [facility] Test 09:40:25 [code = COVID-19 of Medicine Vaccine (1)] Future Scheduled 2021-08-09 TETANUS SHOT (ADULT) [place] [facility] Test 09:40:25 [code = TETANUS SHOT of Medi cine (ADULT)] Future Scheduled 2021-08-09 Hepatitis C screening [facility] College Test 09:40:25 (procedure) [code = of Medic ine 585544813] Future Scheduled 2021-08-09 Human immunodeficiency [facility] [employer] [employer] Test 09:40:25 virus screening of Medicine (procedure) [code = 271481142] Future Scheduled 2021-08-09 Screening for malignant [facility] College Test 09:40:25 neoplasm of cervix of Medici ne (procedure) [code = 404914097] Future Scheduled 2021-08-09 ZOSTER VACCINE (1 of 2) [facility] Test 09:40:25 [code = ZOSTER VACCINE of Nd dicine (1 of 2)] Future Scheduled 2021-08-09 FLU VACCINE > 6 MONTHS [employer] [employer] Test 09:40:25 [code = FLU VACCINE > 6 of M edicine MONTHS] Future Scheduled 2021-08-09 Screening for malignant [facility] Test 09:40:25 neoplasm of colon of Medicin e (procedure) [code = 150717873] Future Scheduled 2021-08-09 Screening for malignant [facility] Test 09:40:25 neoplasm of breast of Medici ne (procedure) [code = 151971739] Future Scheduled 2021-08-09 COVID-19 Vaccine (1) [place] [facility] Test 09:40:25 [code = COVID-19 of Medicine Vaccine (1)] Future Scheduled 2021-08-09 TETANUS SHOT (ADULT) [place] [facility] Test 09:40:25 [code = TETANUS SHOT of Medi cine (ADULT)] Future Scheduled 2021-08-09 Hepatitis C screening [employer] Test 09:40:25 (procedure) [code = of Medic ine 217389405] Future Scheduled 2021-08-09 Human immunodeficiency [facility] [employer] [employer] Test 09:40:25 virus screening of Medicine (procedure) [code = 918235746] Future Scheduled 2021-08-09 Screening for malignant [facility] Test 09:40:25 neoplasm of cervix of Medici ne (procedure) [code = 022243096] Future Scheduled 2021-08-09 ZOSTER VACCINE (1 of 2) [facility] College Test 09:40:25 [code = ZOSTER VACCINE of Me dicine (1 of 2)] Future Scheduled 2021-08-09 FLU VACCINE > 6 MONTHS [employer] [employer] Test 09:40:25 [code = FLU VACCINE > 6 of M edicine MONTHS] Future Scheduled 2021-04-19 Screening for malignant [facility] Test 08:41:39 neoplasm of colon of Medicin e (procedure) [code = 146503127] Future Scheduled 2021-04-19 Screening for malignant [facility] Test 08:41:39 neoplasm of breast of Medici ne (procedure) [code = 927410545] Future Scheduled 2021-04-19 COVID-19 Vaccine (1) [place] [facility] Test 08:41:39 [code = COVID-19 of Medicine Vaccine (1)] Future Scheduled 2021-04-19 TETANUS SHOT (ADULT) [place] [facility] Test 08:41:39 [code = TETANUS SHOT of Medi cine (ADULT)] Future Scheduled 2021-04-19 Hepatitis C screening [employer] Test 08:41:39 (procedure) [code = of Medic ine 018675163] Future Scheduled 2021-04-19 Human immunodeficiency [facility] [employer] [employer] Test 08:41:39 virus screening of Medicine (procedure) [code = 818531562] Future Scheduled 2021-04-19 Screening for malignant [facility] College Test 08:41:39 neoplasm of cervix of Medici ne (procedure) [code = 216260072] Future Scheduled 2021-04-19 ZOSTER VACCINE (1 of 2) [facility] Test 08:41:39 [code = ZOSTER VACCINE of Me dicine (1 of 2)] Future Scheduled 2021-04-19 FLU VACCINE > 6 MONTHS [employer] [employer] Test 08:41:39 [code = FLU VACCINE > 6 of M edicine MONTHS] Encounters Start End Encounter Admission Attending Care Care Encounter Source Date/Time Date/Time Type Type Clinicians Facility Department ID 2021-08-21 Outpatient ALEX, [facility] Surgery [id number] [facility] 19:35:15 TRACILYN 2021-03-09 Outpatient SYSTEM, LUCINDA JANE [id number] 09:15:54 PROVIDER Durga shaver 2022-05-09 2022-05-09 Office SEDALIA, [facility] [id number] [facility] 09:06:59 11:48:17 Visit TRACILYN Chauncey 350.1.13.21 C ollege 0.2.7.2.686 of [id number] Medi luis fernando 520 e 2022-02-07 2022-02-07 Office SEDALIA, [facility] [id number] [facility] 09:03:38 13:34:12 Visit TRACILYN Chauncey 350.1.13.21 C ollege [id number] of [id number] Medi luis fernando 520 e 2021-11-08 2021-11-08 Office SEDALIA, [facility] [id number] [facility] 08:51:55 12:18:59 Visit TRACILYN Chauncey 350.1.13.21 C ollege 0.2.7.2.686 of [id number] Medi luis fernando 520 e 2021-08-09 2021-08-09 Office Breaks, [facility] [id number] [facility] 09:22:27 09:52:27 Visit Tracilyn Chauncey 350.1.13.21 C ollege Lupe 0.2.7.2.686 of [id number] Medi luis fernando 520 e 2021-04-19 2021-04-19 Office Breaks, [facility] [id number] 08:36:47 09:06:47 Visit Tracilyn Chauncey 350.1.13.21 Lupe 0.2.7.2.686 [id number] 2021-04-19 2021-04-19 Office Alex, [facility] [id number] [facility] 08:36:47 09:06:47 Visit Javy Grossman 350.1.13.21 C lazara Nazariohelle 0.2.7.2.686 [id number] Medi luis fernando 520 e 2021-03-29 2021-03-29 Outpatient EL AISHA [facility] [id number] [facility] 00:00:00 00:00:00 JAVY 2021-03-29 2021-03-29 Outpatient [facility] [id number] [facility] 00:00:00 00:00:00 2021-03-24 2021-03-24 Outpatient [facility]ISHA [facility] [id number] [facility] 07:51:03 13:43:43 [facility] Results Test Description Test Time Test Comments Results Result Sourc e Comments TISSUE EXAM 2021-04-20 Surgical Pathology Report 10:34:00 Case: [id number] Authorizing Provider: Javy Alex, Collected: 04/01/2021 01:06 PM Ordering Location: [facility] Received: 04/01/2021 01:24 PM SERVICES Pathologist: [...] assess the need for germline testing.PBCodes : 23091 x 1, 48018 x 3 Addendum electronically signed by Lore [...] PARATUBAL ENDOMETRIOSIS Signing Pathologist Direct Phone Line: [phone] y signed by Lore Esquivel MD on [...] (pN): pNX FIGO STAGE FIGO Stage: [place] [address], [address], 64393, 59182O. Uterus, cervix, bilateral tubes and ovariesA. Received [...] blood.Ink code:Anterior-BluePosteri or-blackSection code:FS A1: Anterior endomyometrium, chemical sales representative (to include the whorled nodule)A2-A5: Anterior longitudinal endomyometrium, sections starting with cervix in Q9I2-Y0: Anterior longitudinal endomyometrium, sections starting with cervix in J2M20-D55: Posterior longitudinal endomyometrium, section starting with cervix in Y43Z24-Z04: Posterior longitudinal endomyometrium, sectioned starting with cervix in a 14A18: Anterior endomyometrium with the whorled nodule, yuznvcnyuzmuetC04: Right ovary, [id number]: Left ovary, chemical sales representative following light [id number]: Right fimbria in its entirety and chemical sales representative cross-section of fallopian jgsbY24-J60: Left fimbria in its entirety and chemical sales representative cross-section of fallopian tube (to include the hemorrhagic cyst)Shajia Shahid, MDA. UTERUS, CERVIX, BILATERAL TUBES AND OVARIES, [...] (test code = 355) 27 meq/L 22-29 Transportation Project Manager ID - [id number] AND CREATININE [id number] 15:23:00 Test Item Value Reference Range Interpretation Comments BLOOD UREA NITROGEN 13 mg/dL 7-21 (BEAKER) (test code = 354) CREATININE (BEAKER) 0.87 mg/dL 0.57-1.25 (test code = 358) BUN/CREAT RATIO 15 For a normal (BEAKER) (test code individu al on a = 9690258211) normal diet, t he reference inter deyanira for the mass ra erick ranges between 12:1 and 20:1 (BUN i n mg/dL/creatinin e in mg/dL) EGFR (BEAKER) (test 66 mL/min/1.73 ESTIMA SUJATA GFR IS code = 1092) sq m NOT ACCURATE CREATININE CLEARANCE IN PREDICTING GLOMERULAR FILTRATION RATE . ESTIMATED GFR I S NOT APPLICABLE FOR DIALYSIS PATIEN TS. Transportation Project Manager ID - [id number] 15:06:00 Test Item Value Reference Range Interpretation Comments HEMOGLOBIN (BEAKER) (test code = 14.1 GM/DL 11.2-15.7 410) Transportation Project Manager ID - [id number], [id number] 13:31:00Unlisted Reason for Exam - Click Yes and Enter Reason Below->YesUnlisted Reason for Exam->malignant neoplasm of uterus, unspecified siteWill this procedure require oral contrast?->NoGARD[facility]Name[facility] : 1955 Sex: FFINAL [...] hypodensity in the left hepatic lobe, too smallto characterize. If indicated, abdomen MRI with and without intravenous contrast (liver protocol) may be obtained for further characterization. Questionable tiny nonobstructive left renal calculi. Signed: Paula Ronquillo MDReport Verified Date/Time: 03/29/2021 13:31:56 Reading Location: [facility] B1 C013Y CT Body Reading Room [id number] 09:14:00 Test Item Value Reference Range Interpretation Comments POC-CREATININE 0.9 mg/dL 0.6-1.3 : TESTED AT [facility] ([facility]) (test [address], code = 1859) [facility] [id number] 0: Transportation Project Manager/Techni stefano ID = [id number] for Isiah Viola POC-EGFR ([facility]) 63 mL/min/1.73M2 (test code = 1860)
[2022-06-26] MEDS ORDERED: METOPROLOL TARTRATE 5 MG/5 ML INJ IV ONE (20:42)
[2022-06-26 20:43] LABS: Absolute Lymphocytes (CBC) 3.8 K/uL (0.7-4.9); Hematocrit 38.9 % (36.0-45.0); Lymphocytes % 41.9 % (15.3-44.8); MCV 89.2 fL (80-100); MPV 8.3 fL (7.6-11.3); RBC Red Blood Cell Count 4.37 M/uL (3.86-4.86)
--- NOTE | 2022-06-26 21:00 | RAD REPORT ---
EXAM DESCRIPTION: RAD - Chest Single View - 06/26/2022 8:37 pm CLINICAL HISTORY: afib rvr Chest pain. COMPARISON: Chest Single View dated 02/24/2022; Chest Single View dated 06/16/2021; Abdomen 1 View (KUB ) dated 10/18/2016; ABDOMEN 1 VIEW KUB dated 09/16/2015 FINDINGS: Portable technique limits examination quality. The lungs are grossly clear. The heart is normal in size. No displaced fractures. IMPRESSION: No acute intrathoracic process suspected.
[2022-06-26 22:40] LABS: Protime INR 1.62
[2022-06-26 22:48] LABS: Magnesium 2.2 mg/dL (1.8-2.4); Potassium 3.8 mmol/L (3.5-5.1); Thyroid Stimulating Hormone 1.35 uIU/mL (0.360-3.740)
--- NOTE | 2022-06-26 22:56 | ER ---
Nurse's Notes [facility] Name: Briana Jean Age: 66 yrs Sex: Female : 1955 Arrival Date: 06/26/2022 Time: 20:05 Bed 3 Private MD: Diagnosis: Palpitations Presentation: 06/26 20:09 Chief complaint: Patient states: Pt reports palpitations that began approximately 1900. kb3 Denies CP, SOB. Hx afib. Coronavirus screen: Vaccine status: Patient reports receiving the 2nd dose of the covid vaccine. At this time, the client does not indicate any symptoms associated with coronavirus-19. Ebola Screen: Patient negative for fever greater than or equal to 101.5 degrees Fahrenheit, and additional compatible Ebola Virus Disease symptoms Patient denies exposure to infectious person. Patient denies travel to an Ebola-affected area in the 21 days before illness onset. No symptoms or risks identified at this time. Initial Sepsis Screen: Does the patient meet any 2 criteria? No. Patient's initial sepsis screen is negative. Does the patient have a suspected source of infection? No. Patient's initial sepsis screen is negative. Risk Assessment: Do you want to hurt yourself or someone else? Patient reports no desire to harm self or others. Onset of symptoms was June 26, 2022 at 19:00. 20:09 Method Of Arrival: Ambulatory kb3 20:09 Acuity: DEIRDRE 2 kb3 Triage Assessment: 20:11 General: Appears in no apparent distress. Behavior is calm, cooperative. Pain: Denies kb3 pain. Historical: - Allergies: 20:11 Latex, Natural Rubber; kb3 20:11 Morphine; kb3 - Home Meds: 20:11 sotalol Oral [Active]; Aspirin Oral [Active]; losartan Oral [Active]; Multaq 400 mg kb3 oral tab 1 tab 2 times per day [Active]; Eliquis 5 mg oral tab 1 tab 2 times per day [Active]; - PMHx: 20:11 Atrial fibrillation; ENDOMETRIAL CANCER; kb3 - PSHx: 20:11 hysterectomy; kb3 - Immunization history:: Adult Immunizations up to date, Client reports receiving the 2nd dose of the Covid vaccine, Last tetanus immunization: up to date. - Social history:: Smoking status: Patient denies any tobacco usage or history of. Patient/guardian denies using alcohol, street drugs. Screenin:45 Abuse screen: Denies threats or abuse. Denies injuries from another. Nutritional as6 screening: No deficits noted. Tuberculosis screening: No symptoms or risk factors identified. Fall Risk None identified. Assessment: 20:34 General: Appears in no apparent distress. Behavior is calm, cooperative. Pain: Denies as6 pain. Neuro: Level of Consciousness is awake, alert. Cardiovascular: Reports palpitations, shortness of breath, Rhythm is atrial fibrillation with rapid ventricular response. Respiratory: Reports shortness of breath Respiratory effort is even, unlabored. 22:43 Cardiovascular: Rhythm is sinus rhythm. as6 Vital Signs: 20:09 BP 168 / 112; Pulse 72; Resp 20; Temp 97.9; Pulse Ox 98% ; Weight 68.04 kg; Height 5 kb3 ft. 6 in. (167.64 cm); Pain 0/10; 20:12 BP 157 / 104; Pulse 111; Resp 18 S; Pulse Ox 97% on R/A; as6 20:45 BP 141 / 98; Pulse 89; Resp 21 S; Pulse Ox 95% on R/A; as6 22:02 BP 128 / 87; Pulse 87; Resp 21 S; Pulse Ox 94% on R/A; aa9 22:44 BP 134 / 90; Pulse 84; Resp 22 S; Pulse Ox 99% on R/A; as6 23:22 BP 118 / 84; Pulse 86; Resp 18 S; Pulse Ox 95% on R/A; as6 20:09 Body Mass Index 24.21 (68.04 kg, 167.64 cm) kb3 ED Course: 20:05 Patient arrived in ED. rg4 20:11 Triage completed. kb3 20:11 Lulu Ghotra FNP-C is PHCP. snw 20:11 Rafi Huang MD is Attending Physician. snw 20:11 Arm band placed on right wrist. Patient placed in an exam room, Naveen Morel CUSTODIAN B[employer]OD BANK in kb3 triage to assess pt. 20:13 Ashutosh Guzman, ZACHARY is Primary Nurse. as6 20:25 Inserted saline lock: 20 gauge in left antecubital area, using aseptic technique. Blood as6 collected. 20:32 Troponin HS Sent. as6 20:32 PT-INR Sent. as6 20:32 Magnesium Sent. as6 20:32 CBC with Diff Sent. as6 20:32 Basic Metabolic Panel Sent. as6 20:39 XRAY Chest (1 view) In Process Unspecified. EDMS 20:46 Bed in low position. Call light in reach. Side rails up X2. Client placed on continuous as6 cardiac and pulse oximetry monitoring. NIBP monitoring applied. Warm blanket given. 22:51 Warm blanket given. aa9 23:21 No provider procedures requiring assistance completed. IV discontinued, intact, as6 bleeding controlled, No redness/swelling at site. Pressure dressing applied. Administered Medications: 20:38 Drug: Metoprolol 5 mg Route: IVP; Site: left antecubital; as6 23:22 Follow up: Response: No adverse reaction; Cardiac rhythm changed as6 Medication: 23:22 VIS not applicable for this client. as6 Outcome: 22:56 Discharge ordered by . snw 23:21 Discharged to home ambulatory, with family. as6 23:21 Condition: stable 23:21 Discharge instructions given to patient, Instructed on discharge instructions, follow up and referral plans. Demonstrated understanding of instructions, follow-up care. 23:22 Patient left the ED. as6 Signatures: Dispatcher [employer] EDMS Lulu Ghotra, ENGINEERING CONSULTANT-C ENGINEERING CONSULTANT-CsnCaitlin Simental rg4 Ashutosh Guzman, ZACHARY RN as6 Angelica Griffith, RN RN aa9 Shauna Huizar, RN RN kb3 Corrections: (The following items were deleted from the chart) 20:50 20:32 THYROID STIMULAT HORMONE+C.LAB.BRZ drawn and sent. as6 EDMS
--- NOTE | 2022-06-26 22:57 | EDPHYS ---
Physician Documentation [facility] Name: Briana Jean Age: 66 yrs Sex: Female : 1955 Arrival Date: 06/26/2022 Time: 20:05 Bed 3 Private MD: ED Physician Rafi Huang HPI: 06/26 20:17 This 66 yrs old Female presents to ER via Ambulatory with complaints of Palpitations. snw 20:17 The patient presents with a history of irregular heart beat, heart racing. Context: The snw symptoms occur at rest. Onset: The symptoms/episode began/occurred suddenly, just prior to arrival, and became persistent. Duration: The patient or guardian reports multiple episodes. Modifying factors: The symptoms are aggravated by nothing. The symptoms are alleviated by nothing. Associated signs and symptoms: The patient has no apparent associated signs or symptoms. Severity of symptoms: At their worst the symptoms were moderate. The patient has experienced a previous episode, In February. Pt was in ICU for 5 days and placed on Amiodarone. Pt discharged on Multak and Eliquis. Pt has had both doses prior to arrival. Sees Dr. Mckeon and Dr. Lawton. Historical: - Allergies: 20:11 Latex, Natural Rubber; kb3 20:11 Morphine; kb3 - Home Meds: 20:11 sotalol Oral [Active]; Aspirin Oral [Active]; losartan Oral [Active]; Multaq 400 mg kb3 oral tab 1 tab 2 times per day [Active]; Eliquis 5 mg oral tab 1 tab 2 times per day [Active]; - PMHx: 20:11 Atrial fibrillation; ENDOMETRIAL CANCER; kb3 - PSHx: 20:11 hysterectomy; kb3 - Immunization history:: Adult Immunizations up to date, Client reports receiving the 2nd dose of the Covid vaccine, Last tetanus immunization: up to date. - Social history:: Smoking status: Patient denies any tobacco usage or history of. Patient/guardian denies using alcohol, street drugs. ROS: 20:16 Eyes: Negative for injury, pain, redness, and discharge, ENT: Negative for injury, snw pain, and discharge, Neck: Negative for injury, pain, and swelling. 20:16 Respiratory: Negative for shortness of breath, cough, wheezing, and pleuritic chest pain, Abdomen/GI: Negative for abdominal pain, nausea, vomiting, diarrhea, and constipation, Back: Negative for injury and pain, : Negative for injury, bleeding, discharge, and swelling, MS/Extremity: Negative for injury and deformity, Skin: Negative for injury, rash, and discoloration, Neuro: Negative for headache, weakness, numbness, tingling, and seizure, Psych: Negative for depression, anxiety, suicide ideation, homicidal ideation, and hallucinations. 20:16 Constitutional: Positive for palpitations. 20:16 Cardiovascular: Positive for palpitations. Exam: 20:15 Constitutional: This is a well developed, well nourished patient who is awake, alert, snw and in no acute distress. Head/Face: Normocephalic, atraumatic. Eyes: Pupils equal round and reactive to light, extra-ocular motions intact. Lids and lashes normal. Conjunctiva and sclera are non-icteric and not injected. Cornea within normal limits. Periorbital areas with no swelling, redness, or edema. ENT: Nares patent. No nasal discharge, no septal abnormalities noted. Tympanic membranes are normal and external auditory canals are clear. Oropharynx with no redness, swelling, or masses, exudates, or evidence of obstruction, uvula midline. Mucous membranes moist. Neck: Trachea midline, no thyromegaly or masses palpated, and no cervical lymphadenopathy. Supple, full range of motion without nuchal rigidity, or vertebral point tenderness. No Meningismus. Chest/axilla: Normal chest wall appearance and motion. Nontender with no deformity. No lesions are appreciated. 20:15 Respiratory: Lungs have equal breath sounds bilaterally, clear to auscultation and percussion. No rales, rhonchi or wheezes noted. No increased work of breathing, no retractions or nasal flaring. Abdomen/GI: Soft, non-tender, with normal bowel sounds. No distension or tympany. No guarding or rebound. No evidence of tenderness throughout. Back: No spinal tenderness. No costovertebral tenderness. Full range of motion. Skin: Warm, dry with normal turgor. Normal color with no rashes, no lesions, and no evidence of cellulitis. MS/ Extremity: Pulses equal, no cyanosis. Neurovascular intact. Full, normal range of motion. Neuro: Awake and alert, GCS 15, oriented to person, place, time, and situation. Cranial nerves II-XII grossly intact. Motor strength 5/5 in all extremities. Sensory grossly intact. Cerebellar exam normal. Normal gait. Psych: Awake, alert, with orientation to person, place and time. Behavior, mood, and affect are within normal limits. 20:15 Cardiovascular: Rate: tachycardic, Rhythm: irregularly irregular, Pulses: no pulse deficits are appreciated, Heart sounds: gallop, Edema: is not appreciated, irregularly irregular. Vital Signs: 20:09 BP 168 / 112; Pulse 72; Resp 20; Temp 97.9; Pulse Ox 98% ; Weight 68.04 kg; Height 5 kb3 ft. 6 in. (167.64 cm); Pain 0/10; 20:12 BP 157 / 104; Pulse 111; Resp 18 S; Pulse Ox 97% on R/A; as6 20:45 BP 141 / 98; Pulse 89; Resp 21 S; Pulse Ox 95% on R/A; as6 22:02 BP 128 / 87; Pulse 87; Resp 21 S; Pulse Ox 94% on R/A; aa9 22:44 BP 134 / 90; Pulse 84; Resp 22 S; Pulse Ox 99% on R/A; as6 23:22 BP 118 / 84; Pulse 86; Resp 18 S; Pulse Ox 95% on R/A; as6 20:09 Body Mass Index 24.21 (68.04 kg, 167.64 cm) kb3 MDM: 20:20 Patient medically screened. snw 21:28 Data reviewed: vital signs, nurses notes. Data interpreted: Pulse oximetry: on room air snw is 95 %. Interpretation: acceptable. Counseling: I had a detailed discussion with the patient and/or guardian regarding: the historical points, exam findings, and any diagnostic results supporting the discharge/admit diagnosis, lab results, radiology results, the need for outpatient follow up. Response to treatment: the patient's symptoms have mildly improved after treatment. 06/26 20:15 Order name: Basic Metabolic Panel; Complete Time: 22:49 snw 06/26 20:15 Order name: CBC with Diff; Complete Time: 20:46 snw 06/26 20:15 Order name: Magnesium; Complete Time: 22:49 snw 06/26 20:15 Order name: PT-INR; Complete Time: 22:41 snw 06/26 20:15 Order name: Troponin HS; Complete Time: 22:49 snw 06/26 20:15 Order name: XRAY Chest (1 view); Complete Time: 21:10 snw 06/26 20:15 Order name: EKG; Complete Time: 20:17 snw 06/26 20:15 Order name: Cardiac monitoring; Complete Time: 20:32 snw 06/26 20:15 Order name: EKG - Nurse/Tech; Complete Time: 20:32 snw 06/26 20:15 Order name: IV Saline Lock; Complete Time: 20:32 snw 06/26 20:15 Order name: Labs collected and sent; Complete Time: 20:32 snw 06/26 20:49 Order name: Thyroid Stimulating Hormone; Complete Time: 22:49 EDMS 06/26 20:15 Order name: O2 Per Protocol; Complete Time: 20:32 snw 06/26 20:15 Order name: O2 Sat Monitoring; Complete Time: 20:32 snw Administered Medications: 20:38 Drug: Metoprolol 5 mg Route: IVP; Site: left antecubital; as6 23:22 Follow up: Response: No adverse reaction; Cardiac rhythm changed as6 Disposition: 23:42 Co-signature as Attending Physician, Rafi Huang MD. [email or web address] Disposition Summary: 06/26/22 22:56 Discharge Ordered Location: Home snw Condition: Stable snw Diagnosis - Palpitations snw Followup: snw - With: Emergency Department - When: As needed - Reason: Worsening of condition Followup: snw - With: Private Physician - When: 1 - 2 days - Reason: Recheck today's complaints, Continuance of care, Re-evaluation by your physician Discharge Instructions: - Discharge Summary Sheet snw - Atrial Fibrillation snw - Palpitations snw Forms: - Medication Reconciliation Form snw - Thank You Letter snw - Antibiotic Education snw - Prescription Opioid Use snw Signatures: Dispatcher [employer] EDVT Lulu Ghotra FNP-C MEDICAL OBSERVER-Csnw Rafi Huang MD MD mh7 Ashutosh Guzman, RN RN as6 Shauna Huizar RN RN kb3 Corrections: (The following items were deleted from the chart) 20:50 20:21 THYROID STIMULAT HORMONE+C.LAB.BRZ ordered. EDMS EDMS
[2022-06-27 02:32] VITALS: TEMP 97.9
[2022-06-27 03:07] VITALS: BP 118/84; O2SAT 95
--- NOTE | 2022-06-28 08:17 | EKG ---
Test Date: 2022-06-26 Test Time: 22:48:28 Disbursing Officer: SHAHANA MEASUREMENT RESULTS: Intervals: Rate: 84 NC: 202 QRSD: 88 QT: 402 QTc: 475 [place]: P: 49 NC: 202 QRS: 49 T: 44 INTERPRETIVE STATEMENTS: Normal sinus rhythm Nonspecific ST abnormality Abnormal ECG Compared to ECG 02/28/2022 21:57:06 ST (T wave) deviation now present Myocardial infarct finding no longer present Electronically Signed On 06-28-22 08:11:35 CDT by Anthony Lawton
--- NOTE | 2022-06-28 08:18 | EKG ---
Test Date: 2022-06-26 Test Time: 20:24:01 Train Crew Member: MEASUREMENT RESULTS: Intervals: Rate: 108 IA: 194 QRSD: 86 QT: 354 QTc: 474 [place]: P: 56 IA: 194 QRS: 67 T: -59 INTERPRETIVE STATEMENTS: Sinus tachycardia with frequent premature ventricular complexes Nonspecific ST and T wave abnormality Abnormal ECG Compared to ECG 02/28/2022 21:57:06 Ventricular premature complex(es) now present ST (T wave) deviation now present Sinus rhythm no longer present Myocardial infarct finding no longer present Electronically Signed On 06-28-22 08:11:41 CDT by Anthony Lawton
== END 2022-06-26 23:22 | disposition home or self-care (01) ==
LOC: ER 20:04
DX: R00.2 Palpitations (principal); I48.91 Unspecified atrial fibrillation; Z79.01 Long term (current) use of anticoagulants; Z79.82 Long term (current) use of aspirin; Z85.89 Personal history of malignant neoplasm of other organs and systems; Z88.5 Allergy status to narcotic agent; Z91.040 Latex allergy status; Z91.048 Other nonmedicinal substance allergy status
CPT/HCPCS: 36415; 71045; 80048; 83735; 84443; 84484; 85025; 85610; 93005; 96374; 99284

== ENCOUNTER 2022-07-06 20:00 | Observation (INO) | payer BC, OTHER ==
--- OUTSIDE RECORDS SUMMARY | 2022-07-06 20:03 | XMS REPORT | Continuity of Care Document ---
:1955 Author Organization [facility] t Address [address] [place] [address] Care Team Providers Name Role Phone Dipika Lane MD Primary Care Physician [phone] JAVY ALEX Attending Clinician Unavailable SYSTEM, PROVIDER NOT IN Attending Clinician Unavailable JAVY ALEX Attending Clinician Unavailable Javy Alex MD Attending Clinician [phone] JAVY ALEX Admitting Clinician Unavailable Payers Payer Name Policy Type Policy Number Effective Date Expiration Date S ource [employer] [facility] [id number] 2020 00:00:00 ACCESS OPEN ACCESS [id number] HMO/POS/EPO/PPO - AETNA OUT OF STATE BCBS [id number] - PPO - BCBS Problems Condition Condition Condition Status Onset Resolution Last Treating Co mments Source Name Details Category Date Date Treatment Clinician Date Malignant Malignant Disease Active [place] [facility] neoplasm neoplasm 5-12 Colleg e of [...] Swelling [facility] ty to 03-25 of [facility], College adverse 00:00: tingling of reaction 00 of tongue Medic in s to e substanc e Opioid Propensi Active Itching [facility] Analgesi ty to 12 College cs adverse 00:00: of reaction 00 Medicin s to e drug Social History Social Habit Start Date Stop Date Quantity Comments Source History of tobacco Cigarette Smoker [facility] use of Medicine Exposure to 2022-04-29 2022-05-09 Not sure [facility] Colle e SARS-CoV-2 (event) 00:00:00 09:06:00 of Med icine Alcohol intake 2022-05-09 2022-05-09 Lifetime [facility] Col lege 00:00:00 00:00:00 non-drinker of Medicine (finding) Cigarette 2021-03-24 2021-03-24 [facility] pack-years 00:00:00 00:00:00 of Medicine Tobacco use and 2021-03-24 2021-03-24 Smokeless tobacco [facility] exposure 00:00:00 00:00:00 non-user of Medicine Sex Ass[birth year] F [facility] Co llege 00:00:00 00:00:00 of Medicine Smoking Status Start Date Stop Date Source Never smoked tobacco [facility] Iliana ege of Medicine Medications Ordered Filled Start Stop Current Ordering Indication Dosage Frequency Signature Comments Components Source Medication Medication Date Date Medication? Clinician (SIG) Name Name atorvastati Yes 40mg Take 40 mg [facility] n (LIPITOR) 05-09 by mouth [place]iana ege 40 MG 09:18: daily. of tablet 28 Medicin e ASPIRIN 81 2021- No Take by [place] [facility] OR 05-09 mouth. College 09:17: 00:00 of 00 :00 Medicin e ELIQUIS 5 Yes TAKE 1 Gal MG TABS 6-13 TABLET BY [place] 00:00: MOUTH of 00 TWICE Medicin DAILY e MULTAQ 400 2021-0 Yes TAKE 1 [facility] MG TABS 5-16 TABLET BY [place] 00:00: MOUTH of 00 TWICE Medicin DAILY WITH e THE MORNING AND EVENING MEAL atorvastati 2021-0 Yes 40mg Take 40 mg Gal n (LIPITOR) 3-28 by mouth Iliana ege 40 MG 09:11: daily. of tablet 26 Medicin e Cholecalcif 2021-0 Yes Take by [place] [facility] charity 3-28 mouth. [place] ([facility]) 09:11: of 625 MCG 26 Medicin (22137 UT) e CAPS ASPIRIN 81 2021-0 Yes Take by [facility] OR 3-28 mouth. [place] 09:11: of 26 Medicin e Multiple 2021-0 Yes Take by Gal Vitamin 3-28 mouth. [place] (MULTIVITAM 09:11: of IN ADULT 26 Medicin OR) e Bioflavonoi 2021-0 Yes Take by [place] [facility] d Products 3-28 mouth. [place] (GRAPE SEED 09:11: of OR) 26 Medicin e Cholecalcif 2021-0 Yes Take by [place] [facility] charity 3-28 mouth. [place] ([facility]) 09:11: of 625 MCG 26 Medicin (03342 UT) e CAPS Multiple 2021-0 Yes Take by Gal Vitamin 3-28 mouth. [place] (MULTIVITAM 09:11: of IN ADULT 26 Medicin OR) e Bioflavonoi 2021-0 Yes Take by [place] [facility] d Products 3-28 mouth. [place] (GRAPE SEED 09:11: of OR) 26 Medicin e atorvastati 2020- Yes 40mg Take 40 mg Gal n (LIPITOR) 2-27 by mouth Iliana ege 40 MG 09:02: daily. of tablet 11 Medicin e Cholecalcif 2020-11 Yes Take by [place] [facility] 2-27 mouth. [place] ([facility]) 09:02: of 625 MCG 11 Medicin (83286 UT) e CAPS ASPIRIN 81 2020-11 Yes Take by [facility] OR 2-27 mouth. [place] 09:02: of 11 Medicin e Multiple 2020-11 Yes Take by Gal Vitamin 2-27 mouth. [place] (MULTIVITAM 09:02: of IN ADULT 11 Medicin OR) e Bioflavonoi 2020-11 Yes Take by [place] [facility] d Products 2-27 mouth. [place] (GRAPE SEED 09:02: of OR) 11 Medicin e losartan 2020-0 Yes [facility] (COZAAR) 50 9-28 College MG tablet 00:00: of 00 Medicin e losartan 202-0 Yes Gal (COZAAR) 50 9-28 College MG tablet 00:00: of 00 Medicin e losartan 202-0 Yes [facility] (COZAAR) 50 9-28 College MG tablet 00:00: of 00 Medicin e atorvastati 2020-0 Yes 40mg Take 40 mg [facility] n (LIPITOR) 9 by mouth [place]iana ege 40 MG 09:37: daily. of tablet 52 Medicin e Cholecalcif 2020-0 Yes Take by [place] [facility] charity 08-09 mouth. [place] ([facility]) 09:37: of 625 MCG 52 Medicin (05465 UT) e CAPS ASPIRIN 81 2020-0 Yes Take by [facility] OR 08-09 mouth. [place] 09:37: of 52 Medicin e Multiple 2020-0 Yes Take by [facility] Vitamin - mouth. [place] (MULTIVITAM 09:37: of IN ADULT 52 Medicin OR) e Bioflavonoi 2020-0 Yes Take by [place] [facility] d Products 08-09 mouth. [place] (GRAPE SEED 09:37: of OR) 52 Medicin e atorvastati 2020-0 Yes 40mg Take 40 mg [facility] n (LIPITOR) 08-09 by mouth Iliana ege 40 MG 09:37: daily. of tablet 52 Medicin e Cholecalcif 2020-0 Yes Take by [place] [facility] 08-09 mouth. [place] ([facility]) 09:37: of 625 MCG 52 Medicin (31706 UT) e CAPS ASPIRIN 81 2020-0 Yes Take by [facility] OR - mouth. [place] 09:37: of 52 Medicin e Multiple 2020-0 Yes Take by [facility] Vitamin - mouth. [place] (MULTIVITAM 09:37: of IN ADULT 52 Medicin OR) e Bioflavonoi 2020-0 Yes Take by [place] [facility] d Products 08-09 mouth. [place] (GRAPE SEED 09:37: of OR) 52 Medicin e atenolol 2020-0 1- No 50mg 50 mg two [place] [facility] (TENORMIN) 08-09-27 times College 100 MG 09:37: 00:00 daily. of tablet 28 :00 Medicin e atenolol 0 2020- No 50mg 50 mg two [place] [facility] (TENORMIN) 08-09 09-27 times College 100 [...] tablet 00 Medicin e sotalol 0 Yes [facility] (BETAPACE) 8-05 College 80 MG 00:00: of tablet 00 Medicin e sotalol 0 2021- No [facility] (BETAPACE) 805-09 College 80 MG 00:00: 00:00 of tablet 00 :00 Medicin e atenolol 0 Yes 50mg 50 mg two [facility] (TENORMIN) 6- times College 100 MG 08:41: daily. of tablet 46 Medicin e atorvastati Yes 40mg Take 40 mg [facility] n (LIPITOR) 6-07 by mouth [place]iana ege 40 MG 08:41: daily. of tablet 46 Medicin e Cholecalcif Yes Take by [place] [facility] charity 6-07 mouth. College () 08:41: of 625 MCG 46 Medicin (90749 UT) e CAPS ASPIRIN 81 0 Yes Take by [facility] OR 6-07 mouth. College 08:41: of 46 Medicin e Multiple 0 Yes Take by [facility] Vitamin 6-07 mouth. College (MULTIVITAM 08:41: of IN ADULT 46 Medicin OR) e Bioflavonoi 0 Yes Take by [place] [facility] d Products 6-07 mouth. College (GRAPE SEED 08:41: of OR) 46 Medicin e ibuprofen 0 Yes 600mg Take 1 [facility] (MOTRIN) 5-19 Tablet by [place] e 600 MG 00:00: mouth of tablet 00 every 6 Medicin hours as e needed for Pain. docusate 2020-0 Yes 100mg Take 1 [facility] sodium 5-19 capsule by [place] (COLACE) 00:00: mouth two of 100 MG [...] Take 1 Gal sodium 5-19 capsule by [place] (COLACE) 00:00: mouth two of 100 MG [...] Pain. docusate 2020-0 Yes 100mg Take 1 [facility] sodium 5-19 capsule by [place] (COLACE) 00:00: mouth two of 100 MG 00 times Medicin capsule daily. e tramadol 2020-0 Yes 1{tbl} Take 1 [facility] (ULTRAM) 50 5-19 Tablet by Col lege MG tablet 00:00: mouth of 00 every 6 Medicin hours as e needed for Pain. docusate 0 Yes 100mg Take 1 [facility] sodium 5-19 capsule by [place] (COLACE) 00:00: mouth two of 100 MG [...] Take 1 Gal sodium 5-19 capsule by [place] (COLACE) 00:00: mouth two of 100 MG [...] for Pain. docusate Yes 100mg Take 1 [facility] sodium 5-19 capsule by [place] (COLACE) 00:00: mouth two of 100 MG [...] kg Systolic blood 2022-05-09 14:16:00 126 mm[Hg] [facility] pressure Medicine Diastolic blood 2022-05-09 14:16:00 86 mm[Hg] [facility] pressure Medicine Heart rate 2022-05-09 14:16:00 93 /min [facility] Body temperature 2022-05-09 14:16:00 36.67 [facility] Body height 2022-05-09 14:16:00 167.6 cm [facility] Body weight 2022-05-09 14:16:00 68.947 kg [facility] C ollege of Medicine BMI 2022-05-09 14:16:00 24.53 kg/m2 [facility] C ollege of Medicine Systolic blood 2022-02-07 14:11:00 157 mm[Hg] [facility] of pressure Medicine Diastolic blood 2022-02-07 14:11:00 105 mm[Hg] [facility] of pressure Medicine Heart rate 2022-02-07 14:11:00 80 /min [facility] C ollege of Medicine Body temperature 2022-02-07 14:11:00 36.67 Jessica [facility] Body height 2022-02-07 14:11:00 167.6 cm [facility] C ollege of [facility] Body weight 2022-02-07 14:11:00 69.4 kg [facility] C ollege of Medicine BMI 2022-02-07 14:11:00 24.69 kg/m2 [facility] ollege of [facility] Heart rate 2021-11-08 15:00:00 77 /min [facility] C ollege of Medicine Body temperature 2021-11-08 15:00:00 36.67 Jessica [facility] Body height 2021-11-08 15:00:00 167.6 cm [facility] C ollege of Medicine Body weight 2021-11-08 15:00:00 69.854 kg [facility] ollege of Medicine BMI 2021-11-08 15:00:00 24.86 kg/m2 [facility] ollege of Medicine Systolic blood 2021-11-08 15:00:00 156 mm[Hg] [facility] of pressure Medicine Diastolic blood 2021-11-08 15:00:00 78 mm[Hg] [facility] of pressure Medicine Systolic blood 2021-08-09 14:38:00 137 mm[Hg] [facility] of pressure Medicine Diastolic blood 2021-08-09 14:38:00 97 mm[Hg] [facility] of pressure Medicine Heart rate 2021-08-09 14:38:00 84 /min [facility] ollege of Medicine Body temperature 2021-08-09 14:38:00 36.67 [facility] Body height 2021-08-09 14:38:00 167.6 cm [facility] ol[facility] of [facility] Body weight 2021-08-09 14:38:00 68.493 kg [facility] ol[facility] BMI 2021-08-09 14:38:00 24.37 [facility] 2021-04-19 13:40:00 165 mm[Hg] [facility] pressure Medicine Diastolic blood 2021-04-19 13:40:00 104 mm[Hg] [facility] Medicine Heart rate 2021-04-19 13:40:00 77 /min [facility] ollege of [facility] Body temperature 2021-04-19 13:40:00 36.67 [facility] Body height 2021-04-19 13:40:00 167.6 cm [facility] ol[facility] Body weight 2021-04-19 13:40:00 68.493 [facility] 2021-04-19 13:40:00 24.37 [facility]m2 [facility] Systolic blood 2021-04-19 13:40:00 165 mm[Hg] [facility] pressure Medicine Diastolic blood 2021-04-19 13:40:00 104 mm[Hg] [facility] Medicine Heart rate 2021-04-19 13:40:00 77 /min [facility] Body temperature 2021-04-19 13:40:00 36.67 [facility] Body height 2021-04-19 13:40:00 167.6 cm [facility] Body weight 2021-04-19 13:40:00 68.493 [facility] BMI 2021-04-19 13:40:00 24.37 kg[facility]m2 [facility] HEIGHT 2021-04-01 08:00:00 167.6 cm WEIGHT 2021-04-01 08:00:00 68.2 kg HEIGHT 2021-03-25 15:01:00 167.6 cm WEIGHT 2021-03-25 15:01:00 69.4 kg Procedures This patient has no known procedures. Plan of Care Planned Activity Planned Date Details Comments Source Future Scheduled 2022-05-09 Screening for malignant [facility] College Test 09:48:12 neoplasm of colon of Medicin e (procedure) [code = 455442133] Future Scheduled 2022-05-09 Screening for malignant [facility] College Test 09:48:12 neoplasm of breast of Medici ne (procedure) [code = 306733430] Future Scheduled 2022-05-09 COVID-19 Vaccine (#1) [employer] [employer] Test 09:48:12 [code = COVID-19 of Medicine Vaccine (#1)] Future Scheduled 2022-05-09 TETANUS SHOT (ADULT) [place] [facility] Test 09:48:12 [code = TETANUS SHOT of Medi cine (ADULT)] Future Scheduled 2022-05-09 Hepatitis C screening [employer] [employer] Test 09:48:12 (procedure) [code = of Medic ine 412714533] Future Scheduled 2022-05-09 Human immunodeficiency [facility] [employer] [employer] Test 09:48:12 virus screening of Medicine (procedure) [code = 506845509] Future Scheduled 2022-05-09 ZOSTER VACCINE (1 of 2) [facility] Test 09:48:12 [code = ZOSTER VACCINE of [facility] (1 of 2)] Future Scheduled 2022-05-09 FLU VACCINE > 6 MONTHS [facility] [employer] [employer] Test 09:48:12 [code = FLU VACCINE > 6 of M edicine MONTHS] Future Scheduled 2022-05-09 Screening for malignant [facility] Test 09:48:12 neoplasm of cervix of Medici ne (procedure) [code = 463884676] Future Scheduled 2022-02-07 Screening for malignant [facility] College Test 09:25:55 neoplasm of colon of Medicin e (procedure) [code = 507438921] Future Scheduled 2022-02-07 Screening for malignant [facility] Test 09:25:55 neoplasm of breast of Medici ne (procedure) [code = 370310876] Future Scheduled 2022-02-07 COVID-19 Vaccine (1) [place] [facility] Test 09:25:55 [code = COVID-19 of Medicine Vaccine (1)] Future Scheduled 2022-02-07 TETANUS SHOT (ADULT) [place] [facility] [employer] Test 09:25:55 [code = TETANUS SHOT of Medi cine (ADULT)] Future Scheduled 2022-02-07 Hepatitis C screening [employer] Test 09:25:55 (procedure) [code = of Medic ine 941575431] Future Scheduled 2022-02-07 Human immunodeficiency [facility] Test 09:25:55 virus screening of Medicine (procedure) [code = 898501316] Future Scheduled 2022-02-07 Screening for malignant [facility] Test 09:25:55 neoplasm of cervix of Medici ne (procedure) [code = 051901988] Future Scheduled 2022-02-07 ZOSTER VACCINE (1 of 2) [facility] Test 09:25:55 [code = ZOSTER VACCINE of Me dicine (1 of 2)] Future Scheduled 2022-02-07 FLU VACCINE > 6 MONTHS [facility] College Test 09:25:55 [code = FLU VACCINE > 6 of M edicine MONTHS] Future Scheduled 2022-02-07 PAP SMEAR - IMAGE Ordered: [facility] Test 09:16:11 GUIDED - NON MEDICARE 02/07/2022 of Med icine [code = NOCPT] Future Scheduled 2021-11-08 Screening for malignant [facility] Test 09:01:19 neoplasm of colon of Medicin e (procedure) [code = 861092430] Future Scheduled 2021-11-08 Screening for malignant [facility] Test 09:01:19 neoplasm of breast of Medici ne (procedure) [code = 170129729] Future Scheduled 2021-11-08 COVID-19 Vaccine (1) [facility] Test 09:01:19 [code = COVID-19 of Medicine Vaccine (1)] Future Scheduled 2021-11-08 TETANUS SHOT (ADULT) [facility] Test 09:01:19 [code = TETANUS SHOT of Medi cine (ADULT)] Future Scheduled 2021-11-08 Hepatitis C screening [facility] Test 09:01:19 (procedure) [code = of Medic ine 109265262] Future Scheduled 2021-11-08 Human immunodeficiency [facility] Test 09:01:19 virus screening of Medicine (procedure) [code = 704660673] Future Scheduled 2021-11-08 Screening for malignant [facility] Test 09:01:19 neoplasm of cervix of Medici ne (procedure) [code = 831820254] Future Scheduled 2021-11-08 ZOSTER VACCINE (1 of 2) [facility] Test 09:01:19 [code = ZOSTER VACCINE of Me dicine (1 of 2)] Future Scheduled 2021-11-08 FLU VACCINE > 6 MONTHS [employer] Test 09:01:19 [code = FLU VACCINE > 6 of M edicine MONTHS] Future Scheduled 2021-08-09 Screening for malignant [facility] Test 09:40:25 neoplasm of colon of Medicin e (procedure) [code = 053025486] Future Scheduled 2021-08-09 Screening for malignant [facility] Test 09:40:25 neoplasm of breast of Medici ne (procedure) [code = 248408430] Future Scheduled 2021-08-09 COVID-19 Vaccine (1) [place] [place] [facility] [employer] Test 09:40:25 [code = COVID-19 of Medicine Vaccine (1)] Future Scheduled 2021-08-09 TETANUS SHOT (ADULT) [place] [facility] [employer] Test 09:40:25 [code = TETANUS SHOT of Medi cine (ADULT)] Future Scheduled 2021-08-09 Hepatitis C screening [facility] College Test 09:40:25 (procedure) [code = of Medic ine 785828784] Future Scheduled 2021-08-09 Human immunodeficiency [facility] [employer] [employer] Test 09:40:25 virus screening of Medicine (procedure) [code = 077709122] Future Scheduled 2021-08-09 Screening for malignant [facility] College Test 09:40:25 neoplasm of cervix of Medici ne (procedure) [code = 620461221] Future Scheduled 2021-08-09 ZOSTER VACCINE (1 of 2) [facility] Test 09:40:25 [code = ZOSTER VACCINE of [place] [facility] (1 of 2)] Future Scheduled 2021-08-09 FLU VACCINE > 6 MONTHS [employer] Test 09:40:25 [code = FLU VACCINE > 6 of M edicine MONTHS] Future Scheduled 2021-08-09 Screening for malignant [facility] Test 09:40:25 neoplasm of colon of Medicin e (procedure) [code = 566104819] Future Scheduled 2021-08-09 Screening for malignant [facility] Test 09:40:25 neoplasm of breast of Medici ne (procedure) [code = 018932670] Future Scheduled 2021-08-09 COVID-19 Vaccine (1) [place] [facility] [employer] Test 09:40:25 [code = COVID-19 of Medicine Vaccine (1)] Future Scheduled 2021-08-09 TETANUS SHOT (ADULT) [place] [facility] [employer] Test 09:40:25 [code = TETANUS SHOT of Medi cine (ADULT)] Future Scheduled 2021-08-09 Hepatitis C screening [employer] Test 09:40:25 (procedure) [code = of Medic ine 314178249] Future Scheduled 2021-08-09 Human immunodeficiency [employer] Test 09:40:25 virus screening of Medicine (procedure) [code = 122862808] Future Scheduled 2021-08-09 Screening for malignant [facility] Test 09:40:25 neoplasm of cervix of Medici ne (procedure) [code = 088881682] Future Scheduled 2021-08-09 ZOSTER VACCINE (1 of 2) [facility] Test 09:40:25 [code = ZOSTER VACCINE of Me dicine (1 of 2)] Future Scheduled 2021-08-09 FLU VACCINE > 6 MONTHS [employer] Test 09:40:25 [code = FLU VACCINE > 6 of M edicine MONTHS] Future Scheduled 2021-04-19 Screening for malignant [facility] Test 08:41:39 neoplasm of colon of Medicin e (procedure) [code = 607632669] Future Scheduled 2021-04-19 Screening for malignant [facility] Test 08:41:39 neoplasm of breast of Medici ne (procedure) [code = 425695503] Future Scheduled 2021-04-19 COVID-19 Vaccine (1) [place] [place] [facility] Test 08:41:39 [code = COVID-19 of Medicine Vaccine (1)] Future Scheduled 2021-04-19 TETANUS SHOT (ADULT) [place] [facility] [employer] Test 08:41:39 [code = TETANUS SHOT of Medi cine (ADULT)] Future Scheduled 2021-04-19 Hepatitis C screening [employer] Test 08:41:39 (procedure) [code = of Medic ine 075531889] Future Scheduled 2021-04-19 Human immunodeficiency [employer] Test 08:41:39 virus screening of Medicine (procedure) [code = 736425605] Future Scheduled 2021-04-19 Screening for malignant [facility] College Test 08:41:39 neoplasm of cervix of Medici ne (procedure) [code = 344075837] Future Scheduled 2021-04-19 ZOSTER VACCINE (1 of [...] Clinicians Facility Department ID 2021-08-21 Outpatient ALEX, [facility] Surgery [id number] [facility] 19:35:15 TRACILYN 2021-03-09 Outpatient SYSTEM, LUCINDA JANE [id number] 09:15:54 PROVIDER Durga shaver 2022-05-09 2022-05-09 Office [place], [facility] [id number] [facility] 09:06:59 11:48:17 Visit TRACILYN Chauncey 350.1.13.21 C ollege 0.2.7.2.686 of [id number] Medi luis fernando 520 e 2022-02-07 2022-02-07 Office [place], [facility] [id number] [facility] 09:03:38 13:34:12 Visit TRACILYN Chauncey 350.1.13.21 C ollege 0.2.7.2.686 of [id number] Medi luis fernando 520 e 2021-11-08 2021-11-08 Office [place], [facility] [id number] [facility] 08:51:55 12:18:59 Visit TRACILYN Chauncey 350.1.13.21 C ollege 0.2.7.2.686 of [id number] Medi luis fernando 520 e 2021-08-09 2021-08-09 Office [place], [facility] [id number] [facility] 09:22:27 09:52:27 Visit Tracilyn Chauncey 350.1.13.21 C ollege Lupe 0.2.7.2.686 of [id number] Medi luis fernando 520 e 2021-04-19 2021-04-19 Office [place], [facility] [id number] 08:36:47 09:06:47 Visit Tracilyn Chauncey 350.1.13.21 Lupe 0.2.7.2.686 [id number] 2021-04-19 2021-04-19 Office [place], [facility] [id number] [facility] 08:36:47 09:06:47 Visit Javy Grossman 350.1.13.21 C lazara Nazariohelle 0.2.7.2.686 [id number] Medi luis fernando 520 e 2021-03-29 2021-03-29 Outpatient EL AISHA [facility] [id number] [facility] 00:00:00 00:00:00 JAVY 2021-03-29 2021-03-29 Outpatient [facility] [id number] [facility] 00:00:00 00:00:00 2021-03-24 2021-03-24 Outpatient AISHA [facility]CILE [facility] [id number] [facility] 07:51:03 13:43:43 JAVY De Luna ge of Medicin e Results Test Description Test Time Test Comments Results Result Sourc e Comments TISSUE EXAM 2021-04-20 Surgical Pathology Report 10:34:00 Case: [id number] Authorizing Provider: Javy Alex, Collected: 04/01/2021 01:06 PM Ordering Location: [facility] PERIOPERATIVE Received: 04/01/2021 01:24 PM SERVICES Pathologist: [...] assess the need for germline testing.PBCodes : 95885 x 1, 14779 x 3 Addendum electronically signed by Lore [...] PARATUBAL ENDOMETRIOSIS Signing Pathologist Direct Phone Line: [phone] y signed by Lore Esquivel MD on [...] (pN): pNX FIGO STAGE FIGO Stage: [place] [address], [address], [address]83, 288[address]C. Uterus, cervix, bilateral tubes and ovariesA. Received [...] blood.Ink code:Anterior-BluePosteri or-blackSection code:FS A1: Anterior endomyometrium, agency service representative (to include the whorled nodule)A2-A5: Anterior longitudinal endomyometrium, sections starting with cervix in C5T7-D0: Anterior longitudinal endomyometrium, sections starting with cervix in P5F08-U75: Posterior longitudinal endomyometrium, section starting with cervix in K37I56-N32: Posterior longitudinal endomyometrium, sectioned starting with cervix in a 14A18: Anterior endomyometrium with the whorled nodule, iijfhjvukefadsB40: Right ovary, gwcfonmodlwruzM44: Left ovary, agency service representative following light [id number]: Right fimbria in its entirety and agency service representative cross-section of fallopian sxrpE46-X57: Left fimbria in its entirety and agency service representative cross-section of fallopian tube (to include [...] (test code = 355) 27 meq/L 22-29 Sole Ruffer ID - DBBUN AND CREATININE [id number] 15:23:00 Test Item Value Reference Range Interpretation Comments BLOOD UREA NITROGEN 13 mg/dL 7-21 (BEAKER) (test code = 354) CREATININE (BEAKER) 0.87 mg/dL 0.57-1.25 (test code = 358) BUN/CREAT RATIO 15 For a normal (BEAKER) (test code individu al on a = 8380858330) normal diet, t he reference inter deyanira for the mass ra erick ranges between 12:1 and 20:1 (BUN i n mg/dL/creatinin e in mg/dL) EGFR (BEAKER) (test 66 mL/min/1.73 ESTIMA SUJATA GFR IS code = 1092) sq m NOT ACCURATE CREATININE CLEARANCE IN PREDICTING GLOMERULAR FILTRATION RATE . ESTIMATED GFR I S NOT APPLICABLE FOR DIALYSIS PATIEN TS. Sole Ruffer ID - [id number] 15:06:00 Test Item Value Reference Range Interpretation Comments HEMOGLOBIN (BEAKER) (test code = 14.1 GM/DL 11.2-15.7 410) Sole Ruffer ID - [id number], [id number] 13:31:00Unlisted Reason for Exam - Click Yes and Enter Reason Below->YesUnlisted Reason for Exam->malignant neoplasm of uterus, unspecified siteWill this procedure require oral contrast?->No[facility]ALPH PLEITEZ : 1955 Sex: FFINAL [...] tiny nonobstructive left renal calculi. Signed: Paula oRnquillo MDReport Verified Date/Time: 03/29/2021 13:31:56 Reading Location: [facility] B1 C013Y CT Body Reading Room [id number] 09:14:00 Test Item Value Reference Range Interpretation Comments POC-CREATININE 0.9 mg/dL 0.6-1.3 : TESTED AT [facility] ([facility]) (test [address], code = 1859) [facility] [id number]: Sole Ruffer/Techni stefano ID = [id number] for Isiah Viola POC-EGFR ([facility]) 63 mL/min/1.73M2 (test code = 1860)
[2022-07-06 21:36] LABS: SARS-CoV-2 Antigen Rapid Res Negative (Negative)
[2022-07-06 21:39] LABS: Absolute Lymphocytes (CBC) 1.4 K/uL (0.7-4.9); Hematocrit 39.1 % (36.0-45.0); Lymphocytes % 11.4 % (15.3-44.8); MCV 89.3 fL (80-100); MPV 7.8 fL (7.6-11.3); Protime INR 2.14; RBC Red Blood Cell Count 4.38 M/uL (3.86-4.86)
[2022-07-06] MEDS ORDERED: NA CHLORIDE 0.9% 500 ML ONE (21:52)
[2022-07-06 21:54] LABS: Urine Blood 1+ (Negative); Urine Glucose Negative (Negative); Urine Protein Negative (Negative)
--- NOTE | 2022-07-06 21:58 | RAD REPORT ---
EXAM DESCRIPTION: RAD - Chest Single View - 07/06/2022 9:52 pm CLINICAL HISTORY: CHEST PAIN COMPARISON: Chest Single View dated 06/26/2022; Chest Single View dated 02/24/2022; Chest Single View dated 06/16/2021; Abdomen 1 View (KUB) dated 10/18/2016 FINDINGS: Lines: None. Lungs: No evidence of edema or pneumonia. Pleural: No significant pleural effusions or pneumothorax. Cardiac: The heart size is within normal limits. Bones: No acute fractures. Other: IMPRESSION: No acute cardiopulmonary disease.
[2022-07-06 22:00] LABS: Albumin 3.6 g/dL (3.4-5.0); Bilirubin Direct 0.1 mg/dL (0-0.2); Bilirubin Total 0.5 mg/dL (0.2-1.0); Magnesium 2.2 mg/dL (1.8-2.4); Potassium 3.7 mmol/L (3.5-5.1); Protein, Total 7.2 g/dL (6.4-8.2); Thyroid Stimulating Hormone 1.11 uIU/mL (0.360-3.740); Troponin High Sensitivity 5.1 pg/mL (<58.9)
--- NOTE | 2022-07-06 23:12 | EDPHYS ---
Physician Documentation [facility] Name: Briana Jean Age: 66 yrs Sex: Female : 1955 Arrival Date: 07/06/2022 Time: 20:02 Bed 18 Private MD: VLADMIIR Physician David Dial HPI: 07/06 23:05 This 66 yrs old Female presents to ER via Ambulatory with complaints of High mary HR. 23:05 The patient has shortness of breath at rest, with light activity. Onset: The mary symptoms/episode began/occurred 1 day(s) ago. Duration: The symptoms are continuous, and are steadily getting worse. The patient's shortness of breath is aggravated by nothing, is alleviated by nothing. The patient presents with a history of irregular heart beat. Context: The symptoms occur at rest. The patient presents with urinary symptoms, dysuria, frequency, hematuria, urgency. Historical: - Allergies: 20:11 Latex, Natural Rubber; bm7 20:11 Morphine; bm7 - Home Meds: 20:11 Aspirin Oral [Active]; Eliquis 5 mg Oral tab 1 tab 2 times per day [Active]; losartan bm7 Oral [Active]; Multaq 400 mg Oral tab 1 tab 2 times per day [Active]; - PMHx: 20:11 Atrial fibrillation; Hypertensive disorder; bm7 - PSHx: 20:11 hysterectomy; bm7 - Immunization history:: Adult Immunizations up to date, Client reports receiving the 2nd dose of the Covid vaccine, Client reports receiving the 1st dose of the Covid vaccine. - Social history:: Smoking status: Patient denies any tobacco usage or history of. - Family history:: not pertinent. ROS: 23:05 Constitutional: Negative for fever, chills, and weight loss, Eyes: Negative for injury, mary pain, redness, and discharge, ENT: Negative for injury, pain, and discharge, Neck: Negative for injury, pain, and swelling, Abdomen/GI: Negative for abdominal pain, nausea, vomiting, diarrhea, and constipation, Back: Negative for injury and pain, : Negative for injury, bleeding, discharge, and swelling, MS/Extremity: Negative for injury and deformity, Skin: Negative for injury, rash, and discoloration, Neuro: Negative for headache, weakness, numbness, tingling, and seizure, Psych: Negative for depression, anxiety, suicide ideation, homicidal ideation, and hallucinations, Allergy/Immunology: Negative for hives, rash, and allergies, Endocrine: Negative for neck swelling, polydipsia, polyuria, polyphagia, and marked weight changes, Hematologic/Lymphatic: Negative for swollen nodes, abnormal bleeding, and unusual bruising. 23:05 Cardiovascular: Positive for palpitations. 23:05 Respiratory: Positive for shortness of breath, at rest. Exam: 23:05 Constitutional: This is a well developed, well nourished patient who is awake, alert, mary and in no acute distress. Head/Face: Normocephalic, atraumatic. Eyes: Pupils equal round and reactive to light, extra-ocular motions intact. Lids and lashes normal. Conjunctiva and sclera are non-icteric and not injected. Cornea within normal limits. Periorbital areas with no swelling, redness, or edema. ENT: Nares patent. No nasal discharge, no septal abnormalities noted. Tympanic membranes are normal and external auditory canals are clear. Oropharynx with no redness, swelling, or masses, exudates, or evidence of obstruction, uvula midline. Mucous membranes moist. Neck: Trachea midline, no thyromegaly or masses palpated, and no cervical lymphadenopathy. Supple, full range of motion without nuchal rigidity, or vertebral point tenderness. No Meningismus. Chest/axilla: Normal chest wall appearance and motion. Nontender with no deformity. No lesions are appreciated. Respiratory: Lungs have equal breath sounds bilaterally, clear to auscultation and percussion. No rales, rhonchi or wheezes noted. No increased work of breathing, no retractions or nasal flaring. Abdomen/GI: Soft, non-tender, with normal bowel sounds. No distension or tympany. No guarding or rebound. No evidence of tenderness throughout. Back: No spinal tenderness. No costovertebral tenderness. Full range of motion. Female : Normal external genitalia. Skin: Warm, dry with normal turgor. Normal color with no rashes, no lesions, and no evidence of cellulitis. MS/ Extremity: Pulses equal, no cyanosis. Neurovascular intact. Full, normal range of motion. Neuro: Awake and alert, GCS 15, oriented to person, place, time, and situation. Cranial nerves II-XII grossly intact. Motor strength 5/5 in all extremities. Sensory grossly intact. Cerebellar exam normal. Normal gait. Psych: Awake, alert, with orientation to person, place and time. Behavior, mood, and affect are within normal limits. 23:05 Cardiovascular: Rate: tachycardic, Rhythm: irregularly irregular, Pulses: Pulses are 4+ in bilateral radial, brachial, femoral, popliteal, posterior tibial and and dorsalis pedis arteries.. Heart sounds: normal, Edema: is not appreciated, JVD: is not appreciated. 23:05 ECG was reviewed by the Attending Physician. Vital Signs: 20:08 BP 156 / 96; Pulse 112; Resp 18; Temp 98.9(TE); Pulse Ox 100% on R/A; Weight 70.76 kg bm7 (R); Height 5 ft. 6 in. (167.64 cm); Pain 0/10; 21:58 BP 148 / 82; Pulse 92; Resp 18; Pulse Ox 99% on R/A; ke1 23:45 Pain 0/10; ke1 20:08 Body Mass Index 25.18 (70.76 kg, 167.64 cm) bm7 MDM: 21:01 Patient medically screened. [facility] 07/06 21:03 Order name: Basic Metabolic Panel; Complete Time: 22:11 [facility] 07/06 21:03 Order name: CBC with Diff; Complete Time: 22:11 [facility] 07/06 21:03 Order name: LFT's; Complete Time: 22:11 [facility] 07/06 21:03 Order name: Magnesium; Complete Time: 22:11 [facility] 07/06 21:03 Order name: NT PRO-BNP; Complete Time: 22:11 [facility] 07/06 21:03 Order name: PT-INR; Complete Time: 22:11 [facility] 07/06 21:03 Order name: Troponin HS; Complete Time: 22:11 [facility] 07/06 21:03 Order name: XRAY Chest (1 view); Complete Time: 22:11 [facility] 07/06 21:03 Order name: TSH; Complete Time: 22:11 [facility] 07/06 21:03 Order name: SARS RAPID; Complete Time: 22:11 [facility] 07/06 21:55 Order name: Urine Dipstick-Ancillary; Complete Time: 22:11 [facility] 07/06 21:57 Order name: Urine Culture ke1 07/06 21:03 Order name: EKG; Complete Time: 21:04 [facility] 07/06 21:03 Order name: Cardiac monitoring; Complete Time: 21:41 [facility] 07/06 21:03 Order name: EKG - Nurse/Tech; Complete Time: 21:41 [facility] 07/06 21:03 Order name: IV Saline Lock; Complete Time: 21:32 [facility] 07/06 21:03 Order name: Labs collected and sent; Complete Time: 21:32 [facility] 07/06 21:03 Order name: O2 Per Protocol; Complete Time: 21:41 [facility] 07/06 21:03 Order name: O2 Sat Monitoring; Complete Time: 21:41 [facility] 07/06 21:03 Order name: Urine Dipstick-Ancillary (obtain specimen); Complete Time: 21:57 [facility] EC:05 Rate is 122 beats/min. Rhythm is regular. QRS Moncure is Normal. UT interval is normal. mary QRS interval is normal. QT interval is normal. No Q waves. T waves are Normal. No ST changes noted. Clinical impression: Atrial Fibrillation and No evidence of ischemia. Interpreted by me. Reviewed by me. Administered Medications: 21:45 Drug: NS 0.9% 500 ml Route: IV; Rate: bolus; Site: left antecubital; ke1 22:15 Follow up: IV Status: Completed infusion ke1 23:09 Drug: Rocephin (cefTRIAXone) 1 grams Route: IV; Rate: per protocol; Site: left [facility] antecubital; 23:40 Follow up: Response: No adverse reaction; IV Status: Completed infusion ke1 23:15 Drug: Tylenol 1000 mg {Note: headache 4/10.} Route: PO; ke1 23:45 Follow up: Pain 0/10 Adult; Response: Pain is decreased ke1 Disposition Summary: 07/06/22 23:11 Hospitalization Ordered Hospitalization Status: Observation mary Provider: Nik Hurtado cha Location: Telemetry/MedSurg (observation) mary Condition: Fair mary Problem: new mary Symptoms: have improved mary Bed/Room Type: Standard mary Room Assignment: 403(07/07/22 00:47) eb1 Diagnosis - UTI/ Urinary tract infection, site not specified mary - Chronic atrial fibrillation - with RVR mary - Dysuria mary - Weakness mary Forms: - Medication Reconciliation Form mary - SBAR form mary Signatures: Dispatcher [employer] David Nava MD MD mary Christopher, Gabbi, RN RN eb1 Jaquelin Myles, ZACHARY RN 7 Chencho Coleman RN RN ke1 Corrections: (The following items were deleted from the chart) 20:11 20:11 PMHx: ENDOMETRIAL CANCER; bm7 bm7 07/07 00:47 07/06 23:11 mary aviles
--- NOTE | 2022-07-06 23:12 | ER ---
Nurse's Notes [facility] Name: Briana Jean Age: 66 yrs Sex: Female : 1955 Arrival Date: 07/06/2022 Time: 20:02 Bed 18 Private MD: Diagnosis: UTI/ Urinary tract infection, site not specified;Chronic atrial fibrillation-with RVR;Dysuria;Weakness Presentation: 07/06 20:09 Chief complaint: Patient states: I went to urgent care today for a UTI and they gave me bm7 augmentin. I took it then threw up. Then I started having some palpitations and my heart rate started going up and I think it is my AFIB. Coronavirus screen: Client presents with at least one sign or symptom that may indicate coronavirus-19. Standard/surgical mask placed on the client. Ebola Screen: No symptoms or risks identified at this time. Initial Sepsis Screen: Does the patient meet any 2 criteria? Yes Does the patient have a suspected source of infection? Yes: Dysuria/Frequency/Urgency/UTI. Risk Assessment: Do you want to hurt yourself or someone else? Patient reports no desire to harm self or others. Onset of symptoms was July 06, 2022. 20:09 Method Of Arrival: Ambulatory 7 20:09 Acuity: DEIRDRE 2 bm7 20:11 Care prior to arrival: urgent care. 7 Triage Assessment: 20:11 General: Appears in no apparent distress. comfortable, Behavior is calm, cooperative, bm7 appropriate for age. Pain: Denies pain. EENT: No deficits noted. No signs and/or symptoms were reported regarding the EENT system. Neuro: No deficits noted. Cardiovascular: Reports palpitations, Chest pain is denied. Respiratory: No deficits noted. Denies shortness of breath at rest, on exertion. GI: No deficits noted. No signs and/or symptoms were reported involving the gastrointestinal system. : Reports burning with urination. Derm: No deficits noted. No signs and/or symptoms reported regarding the dermatologic system. Musculoskeletal: No deficits noted. No signs and/or symptoms reported regarding the musculoskeletal system. Historical: - Allergies: 20:11 Latex, Natural Rubber; bm7 20:11 Morphine; bm7 - Home Meds: 20:11 Aspirin Oral [Active]; Eliquis 5 mg Oral tab 1 tab 2 times per day [Active]; losartan bm7 Oral [Active]; Multaq 400 mg Oral tab 1 tab 2 times per day [Active]; - PMHx: 20:11 Atrial fibrillation; Hypertensive disorder; bm7 - PSHx: 20:11 hysterectomy; bm7 - Immunization history:: Adult Immunizations up to date, Client reports receiving the 2nd dose of the Covid vaccine, Client reports receiving the 1st dose of the Covid vaccine. - Social history:: Smoking status: Patient denies any tobacco usage or history of. - Family history:: not pertinent. Screenin:32 Abuse screen: Denies threats or abuse. Nutritional screening: No deficits noted. ke1 Tuberculosis screening: No symptoms or risk factors identified. Fall Risk No fall in past 12 months (0 pts). Secondary diagnosis (15 points) IV access (20 points). Ambulatory Aid- None/Bed Rest/Nurse Assist (0 pts). Gait- Normal/Bed Rest/Wheelchair (0 pts) Mental Status- Oriented to own ability (0 pts). Total Park Fall Scale indicates No Risk (0-24 pts). Assessment: 21:58 Reassessment: Patient appears in no apparent distress at this time. Patient and/or ke1 family updated on plan of care and expected duration. Pain level reassessed. Patient is alert, oriented x 3, equal unlabored respirations, skin warm/dry/pink. Patient denies pain at this time. 23:16 Pain: Complains of pain in headache Pain currently is 4 out of 10 on a pain scale. ke1 23:45 Pain: Complains of pain in headache Pain currently is 0 out of 10 on a pain scale. ke1 Vital Signs: 20:08 BP 156 / 96; Pulse 112; Resp 18; Temp 98.9(TE); Pulse Ox 100% on R/A; Weight 70.76 kg bm7 (R); Height 5 ft. 6 in. (167.64 cm); Pain 0/10; 21:58 BP 148 / 82; Pulse 92; Resp 18; Pulse Ox 99% on R/A; ke1 23:45 Pain 0/10; ke1 20:08 Body Mass Index 25.18 (70.76 kg, 167.64 cm) bm7 ED Course: 20:02 Patient arrived in ED. bp1 20:10 Triage completed. bm7 20:11 Arm band placed on right wrist. 7 20:22 EKG completed in triage. Results shown to MD. bm7 20:28 Chencho Coleman, RN is Primary Nurse. ke1 21:01 David Dial MD is Attending Physician. [facility] 21:32 Inserted saline lock: 20 gauge in left antecubital area, using aseptic technique. ke1 21:33 Patient has correct armband on for positive identification. Bed in low position. Call ke1 light in reach. 21:54 XRAY Chest (1 view) In Process Unspecified. EDOH 23:09 Nik Hurtado MD is Hospitalizing Provider. [facility] 07/07 01:10 No provider procedures requiring assistance completed. Patient admitted, IV remains in ke1 place. Administered Medications: 07/06 21:45 Drug: NS 0.9% 500 ml Route: IV; Rate: bolus; Site: left antecubital; ke1 22:15 Follow up: IV Status: Completed infusion ke1 23:09 Drug: Rocephin (cefTRIAXone) 1 grams Route: IV; Rate: per protocol; Site: left ke1 antecubital; 23:40 Follow up: Response: No adverse reaction; IV Status: Completed infusion ke1 23:15 Drug: Tylenol 1000 mg {Note: headache 4/10.} Route: PO; ke1 23:45 Follow up: Pain 0/10 Adult; Response: Pain is decreased ke1 Medication: 07/07 01:11 VIS not applicable for this client. ke1 Outcome: 07/06 23:11 Decision to Hospitalize by Provider. [facility] 07/07 01:11 Admitted to Med/surg accompanied by tech. ke1 Condition: stable Instructed on the need for admit. 01:28 Patient left the ED. ke1 Signatures: Dispatcher [employer] EDOH David Dial MD MD cha Pania[place], Brittany bp1 McCarthy, Brittany, RN RN Chencho Castañeda, ZACHARY RN ke1 Corrections: (The following items were deleted from the chart) 07/06 20:11 20:11 PMHx: ENDOMETRIAL CANCER; 7 bm7 20:12 20:09 Acuity: DEIRDRE 3 [facility]7
[2022-07-06] MEDS ORDERED: CEFTRIAXONE 1000 MG/VIAL ONE (23:15)
[2022-07-06] MEDS ORDERED: NA CHLORIDE 0.9% 50 ML ONE (23:15)
[2022-07-06] MEDS ORDERED: ACETAMINOPHEN 500 MG TAB ONE (23:20)
[2022-07-07] MEDS ORDERED: NA CHLORIDE 0.9% 1,000 ML IV SCH (01:38)
[2022-07-07] MEDS ORDERED: PHENAZOPYRIDINE 100MG TAB PO PRN (01:38)
[2022-07-07] MEDS ORDERED: ONDANSETRON 4 MG/2 ML VIAL IV PRN (01:38)
--- NOTE | 2022-07-07 02:26 | P.HP ---
Certification for Inpatient Patient admitted to: Observation With expected LOS: <2 Midnights Patient will require the following post-hospital care: None Practitioner: I am a practitioner with admitting privileges, knowledge of patient current condition, hospital course, and medical plan of care. Services: Services provided to patient in accordance with Admission requirements found in Title 42 Section 412.3 of the Code of Federal Regulations Patient History Date of Service: 07/07/22 Reason for admission: Afib RVR, UTI History of Present Illness: Patient is a 66 year old female with A. fib and hypertension who presented to the ED with complaints of palpitations. Patient states that she went to an urgent care this morning for UTI and was prescribed Augmentin. She states that the Augmentin made her throw up and since then she has felt like her heart has been racing. Her labs are significant for WBC 12.4 and UTI. She was in and out of A. fib RVR in the ED, but was not captured on EKG and is NSR as of now. She was given half a liter of fluid, Rocephin, Tylenol in ED. ED provider wishes admit patient for observation. Allergies latex Allergy (Severe, Verified 06/16/21 21:35) Swollen lips morphine Allergy (Verified 02/25/22 05:09) Itching Home medications list reviewed: Yes Home Medications: Aspirin 81 mg PO BEDTIME 06/18/13 Atorvastatin Calcium 40 mg PO BEDTIME 02/24/21 Doxycycline Hyclate 100 mg PO BID 02/25/22 Losartan Potassium 50 mg PO DAILY 02/25/22 Apixaban [Eliquis] 5 mg PO BID #60 tablet 03/01/22 Dronedarone [Multaq*] 400 mg PO BID #60 tab 03/01/22 - Past Medical/Surgical History Diabetic: No -: A-fib -: Mitral Valve Prolapse -: High Cholesterol -: Endometrial CA -: Appy -: Left breast lumpectomy -: hysterectomy Psychosocial/ Personal History: Patient lives at home with . - Family History Father -: Heart disease, Hypertension Mother -: Heart disease, Hypertension Brother -: Other (see notes) - Social History Smoking Status: Never smoker Alcohol use: No CD- Drugs: No Caffeine use: Yes Place of Residence: Home Review of Systems 10-point ROS is otherwise unremarkable Physical Examination - Vital Signs Temperature: 97.8 F Blood Pressure: 120/76 Pulse: 83 Respirations: 18 Pulse Ox (%): 96 - Physical Exam General: Alert, In no apparent distress HEENT: Atraumatic, PERRLA, EOMI, Sclerae nonicteric Neck: Supple, 2+ carotid pulse no bruit, No LAD, Without JVD or thyroid abnormality Respiratory: Clear to auscultation bilaterally, Normal air movement Cardiovascular: Regular rate/rhythm, Normal S1 S2 Gastrointestinal: Normal bowel sounds, No tenderness Musculoskeletal: No tenderness Integumentary: No rashes Neurological: Normal speech, Normal strength at 5/5 x4 extr, Normal tone, Normal affect - Studies Laboratory Data (last 24 hrs) 07/06/22 21:23: PT 23.9 H, INR 2.14 07/06/22 21:23: WBC 12.40 H D, Hgb 13.3, Hct 39.1, Plt Count 296 07/06/22 21:23: Sodium 138, Potassium 3.7, BUN 14, Creatinine 0.93, Glucose 126 H, Magnesium 2.2, Total Bilirubin 0.5, AST 11 L, ALT 21, Alkaline Phosphatase 87 Assessment and Plan - Problems (Diagnosis) (1) UTI (urinary tract infection) Current Visit: Yes Status: Acute Qualifiers: Urinary tract infection type: acute cystitis Hematuria presence: with hematuria Qualified Code(s): N30.01 - Acute cystitis with hematuria (2) Leukocytosis Current Visit: Yes Status: Acute Qualifiers: Leukocytosis type: unspecified Qualified Code(s): D72.829 - Elevated white blood cell count, unspecified (3) Atrial fibrillation with RVR Current Visit: Yes Status: Acute (4) Essential hypertension Current Visit: Yes Status: Chronic - Plan -Continue rocephin -Monitor patient on telemtry -Continue IV fluids -Pyridium as needed -Monitor and replete electrolytes per protocol -Reconcile and continue home medications -Eliquis for VTE ppx -Full code Discharge Plan: Home Plan to discharge in: 24 Hours - Advance Directives Does patient have a Living Will: No Does patient have a Durable POA for Healthcare: No - Code Status/Comfort Care Code Status Assessed: Yes (Full) Critical Care: No Time Spent Managing Pts Care (In Minutes): 50
[2022-07-07 02:41] VITALS: BMI 24.3
[2022-07-07] MEDS ORDERED: ACETAMINOPHEN 500 MG TAB PO PRN (03:30)
[2022-07-07 05:28] LABS: Specific Gravity 1.015 (1.005-1.030); Urine Bilirubin Negative (Negative); Urine Blood Negative (Negative); Urine Clarity Clear (Clear); Urine Color Yellow (Yellow); Urine Glucose Negative (Negative); Urine Protein Negative (Negative); Urine Urobilinogen 0.2 mg/dL (0.2-1.0)
[2022-07-07 05:47] LABS: Urine Bacteria <20 /HPF (<20); Urine RBC <5 /HPF (None Seen)
[2022-07-07 06:07] LABS: Absolute Lymphocytes (CBC) 2.4 K/uL (0.7-4.9); Hematocrit 36.3 % (36.0-45.0); Lymphocytes % 28.5 % (15.3-44.8); MCV 89.7 fL (80-100); MPV 7.9 fL (7.6-11.3); RBC Red Blood Cell Count 4.04 M/uL (3.86-4.86)
[2022-07-07 06:22] LABS: Magnesium 2.2 mg/dL (1.8-2.4); Potassium 3.7 mmol/L (3.5-5.1)
[2022-07-07 08:07] VITALS: O2SAT 96
[2022-07-07] MEDS ORDERED: DRONEDARONE 400 MG TAB PO SCH ×2 (09:00→10:00)
[2022-07-07] MEDS ORDERED: APIXABAN 5 MG TABLET PO SCH (09:00)
[2022-07-07] MEDS ORDERED: CEFTRIAXONE 1,000 MG in NA CHLORIDE 0.9% 50 ML IVPB SCH (09:00)
[2022-07-07] MEDS ORDERED: LOSARTAN POTASSIUM 50 MG TABLET PO SCH (09:00)
[2022-07-07] MEDS ORDERED: POTASSIUM CL SA 10 MEQ TAB PO ONE (09:00)
--- NOTE | 2022-07-07 10:58 | P.DS ---
Admission Date: 07/06/22 Discharge Date: 07/07/22 Disposition: ROUTINE DISCHARGE Discharge Condition: FAIR Reason for Admission: Afib RVR, UTI - Problems (1) Atrial fibrillation with RVR Status: Acute (2) Leukocytosis Status: Acute Qualifiers: Leukocytosis type: unspecified Qualified Code(s): D72.829 - Elevated white blood cell count, unspecified (3) UTI (urinary tract infection) Status: Acute Qualifiers: Urinary tract infection type: acute cystitis Hematuria presence: with hematuria Qualified Code(s): N30.01 - Acute cystitis with hematuria (4) Essential hypertension Status: Chronic Brief History of Present Illness: Patient is a 66 year old female with A. fib and hypertension who presented to the ED with complaints of palpitations. Patient states that she went to an urgent care for UTI and was prescribed Augmentin. She states that the Augmentin made her throw up, after which she felt like her heart racing. Her labs are significant for WBC 12.4 and UTI. She was in and out of A. fib RVR in the ED, but was not captured on EKG and was NSR during examination. She was given half a liter of fluid, Rocephin, Tylenol in ED. Patient placed under observation for further management. Hospital Course: Patient remained in sinus rhythm during the hospital stay. She was given IV Rocephin for UTI. Patient was seen and evaluated by cardiology-Dr. Lawton. No further input recommended. Her Multaq and Eliquis were resumed during the hospital stay. Patient has been asymptomatic and is deemed clinically stable for discharge. Vital Signs/Physical Exam: Temp Pulse Resp BP Pulse Ox 97.8 F 75 14 134/74 96 07/07/22 08:00 07/07/22 08:00 07/07/22 08:00 07/07/22 08:00 07/07/22 08:00 General: Alert, In no apparent distress, Oriented x3 HEENT: Mucous membr. moist/pink, Sclerae nonicteric Neck: JVD not distended Respiratory: Clear to auscultation bilaterally, Normal air movement Cardiovascular: No edema, Regular rate/rhythm, Normal S1 S2 Gastrointestinal: Normal bowel sounds, Soft and benign, Non-distended Musculoskeletal: No swelling Integumentary: No rashes Neurological: Normal strength at 5/5 x4 extr Laboratory Data at Discharge: WBC 8.50 K/uL (4.3-10.9) D 07/07/22 05:34 Hgb 12.2 g/dL (12.0-15.0) 07/07/22 05:34 Hct 36.3 % (36.0-45.0) 07/07/22 05:34 Plt Count 276 K/uL (152-406) 07/07/22 05:34 PT 23.9 SECONDS (9.5-12.5) H 07/06/22 21:23 INR 2.14 07/06/22 21:23 Sodium 140 mmol/L (136-145) 07/07/22 05:34 Potassium 3.7 mmol/L (3.5-5.1) 07/07/22 05:34 BUN 11 mg/dL (7-18) 07/07/22 05:34 Creatinine 0.70 mg/dL (0.55-1.3) 07/07/22 05:34 Glucose 102 mg/dL (74-106) 07/07/22 05:34 Magnesium 2.2 mg/dL (1.8-2.4) 07/07/22 05:34 Total Bilirubin 0.5 mg/dL (0.2-1.0) 07/06/22 21:23 AST 11 U/L (15-37) L 07/06/22 21:23 ALT 21 U/L (12-78) 07/06/22 21:23 Alkaline Phosphatase 87 U/L (45-117) 07/06/22 21:23 Home Medications: Atorvastatin Calcium 40 mg PO BEDTIME 02/24/21 Losartan Potassium 50 mg PO DAILY 02/25/22 Apixaban [Eliquis] 5 mg PO BID #60 tablet 03/01/22 Dronedarone [Multaq*] 400 mg PO BID #60 tab 03/01/22 Nitrofuran Macro [Macrobid] 100 mg PO BID #10 cap 07/07/22 New Medications: Nitrofuran Macro [Macrobid] 100 mg PO BID #10 cap Diet: AHA Activity: Ad rosa Followup: Anthony Lawton MD [ACTIVE - CAN ADMIT] - 1-2 Weeks (Call for appointment.) Lan Mckeon MD [Primary Care Provider] - 1-2 Weeks (Call for appointment.)
--- NOTE | 2022-07-07 11:11 | CON ---
Date of Consultation: 07/07/2022 Reason For Consultation: Atrial fibrillation. History Of Present Illness: Ms. Jean is a 66-year-old woman. Has had chronic paroxysmal atrial fib rillation, hypertension, dyslipidemia, came in with UTI. She was treated with Augmentin. She came i n with rapid atrial fibrillation that has resolved back to sinus rhythm. She is on Multaq 400 b.i.d. She is in sinus rhythm now and asymptomatic cardiac-phan. Past Medical History: As stated above. Allergies: SHE IS ALLERGIC TO MORPHINE AND LATEX. Review of Systems: Negative. Social History: Negative. Family History: Negative. Medications: Include Eliquis, Multaq, Lipitor, and losartan. Physical Examination: Vital Signs: She is in sinus rhythm. Vital signs otherwise stable. Blood pressure was slightly danny vated. HEENT: Negative. Neck: Supple with no bruit. Chest: Clear. Cardiac: Revealed regular rhythm and rate. No murmurs, gallops, or rubs. Abdomen: Benign. Extremities: Revealed no clubbing, cyanosis, or edema. Diagnostic Data: Showed UTI. Normal echo in 2020. Rest of it was normal. Impression And Plan: 1.Paroxysmal atrial fibrillation, probably secondary to hypertension and urinary tract infection osmany t has resolved. Continue Multaq at 400 b.i.d., continue Eliquis, she can go home otherwise. 2.Hypertension, poorly controlled. Increase losartan from 50 to 100 mg daily. 3.Dyslipidemia, well controlled, on Lipitor. The patient can go home on Multaq, higher dose of losa rtan. Switch antibiotics to either Macrodantin or Bactrim and I will see her in the office soon. TONY/NAWAF Voice ID: [id number] Report ID: [id number]
[2022-07-07 11:42] VITALS: BP 120/61; TEMP 98.1
--- NOTE | 2022-07-07 15:10 | EKG ---
Test Date: 2022-07-06 Test Time: 20:21:31 Breakfast And Room Attendant: BELLA MEASUREMENT RESULTS: Intervals: Rate: 122 WV: 72 QRSD: 86 QT: 422 QTc: 601 [place]: P: WV: 72 QRS: 41 T: 46 INTERPRETIVE STATEMENTS: Sinus tachycardia with short WV with occasional premature ventricular complexes ST & T wave abnormality, consider inferior ischemia Abnormal ECG Compared to ECG 06/26/2022 22:48:28 Ventricular premature complex(es) now present Short WV interval now present Possible ischemia now present Sinus rhythm no longer present ST (T wave) deviation still present Electronically Signed On 07-07-22 15:10:22 CDT by Ted Oscar
[2022-07-07] MEDS ORDERED: ATORVASTATIN 40 MG TAB PO SCH (21:00)
== END 2022-07-07 12:15 | disposition home or self-care (01) ==
LOC: ER 20:00 → ERHOLD 23:53 → 4TH 07-07 01:03
PROVIDERS: ADMIT Internal Medicine; ATTEND Internal Medicine
DX: I48.0 Paroxysmal atrial fibrillation (principal); N30.01 Acute cystitis with hematuria; I10 Essential (primary) hypertension; I34.1 Nonrheumatic mitral (valve) prolapse; E78.5 Hyperlipidemia, unspecified; E78.00 Pure hypercholesterolemia, unspecified; Z79.01 Long term (current) use of anticoagulants; Z79.02 Long term (current) use of antithrombotics/antiplatelets; Z79.899 Other long term (current) drug therapy; Z88.5 Allergy status to narcotic agent; Z91.040 Latex allergy status; Z85.42 Personal history of malignant neoplasm of other parts of uterus; Z90.710 Acquired absence of both cervix and uterus; Z20.822 Contact with and (suspected) exposure to COVID-19; Z82.49 Family history of ischemic heart disease and other diseases of the circulatory system
CPT/HCPCS: 96365; 93005; 87088; 85025 ×2; 81001; 87086; 80048 ×2; 36415; 83735 ×2; 85610; 80076; 84443; 81003; 84484; 83880; 71045; 99285; 87811; J7040; J7030; G0378 ×2

== ENCOUNTER 2022-08-07 19:43 | Emergency (ER) | payer BC, OTHER ==
--- OUTSIDE RECORDS SUMMARY | 2022-08-07 19:56 | XMS REPORT | Continuity of Care Document ---
:1955 Author Organization [facility] t Address [address] [place] [address] Care Team Providers Name Role Phone Dipika Lane MD Primary Care Physician [phone] JAVY ALEX Attending Clinician Unavailable SYSTEM, PROVIDER NOT IN Attending Clinician Unavailable JAVY ALEX Attending Clinician Unavailable Javy Alex MD Attending Clinician [phone] JAVY ALEX Admitting Clinician Unavailable Payers Payer Name Policy Type Policy Number Effective Date Expiration Date S ource AETNA [facility] [id number] 2020 00:00:00 ACCESS OPEN ACCESS [id number] HMO/POS/EPO/PPO - [employer]ET[employer] OUT OF STATE BCBS [id number] - PPO - BCBS Problems Condition Condition Condition Status Onset Resolution Last Treating Co mments Source Name Details Category Date Date Treatment Clinician Date Uterine Uterine Disease Active [facility] Malignant Malignant Disease Active [facility] neoplasm neoplasm 5-12 [facility] of 00:00: of overlappin overlappin 00 Me dicin g sites of g sites of e body of body of uterus uterus (HCCode) (HCCode) Allergies, Adverse Reactions, Alerts Allergy Allergy Status Severity Reaction(s) Onset Inactive Treating Comm ents Source Name Type Date Date Clinician Latex Propensi Active Swelling Swelling [facility]-13 [facility] lips, [facility] adverse 00:00: tingling Medical reaction 00 of tongue Cente r s Morphine Drug Active Itching [facility]13 [facility] 00 Center Latex Propensi Active Swelling Swelling [facility] to 5-13 of lips, [facility] adverse 00:00: tingling of reaction 00 of tongue Medic in s to e substanc e LATEX Allergy Active [facility]elling [facility] MORPHINE Allergy Active It[facility] Opioid Propensi Active Itching [facility] Analgesi ty to 5-12 College cs adverse 00:00: of reaction 00 Medicin s to e drug Social History Social Habit Start Date Stop Date Quantity Comments Source History of tobacco Cigarette Smoker [facility] use of Medicine History SDOH [facility] Alcohol Comment Medical C enter History SDOH [facility] Alcohol Std Drinks Medica l Center History SDOH [facility] Alcohol Binge Medical Candace ter Exposure to 2022-04-29 2022-05-09 Not sure [facility] Colle e SARS-CoV-2 (event) 00:00:00 09:06:00 of Med icine Alcohol intake 2021-04-02 2021-04-[address] [facility] 00:00:00 00:00:00 non-drinker Medical Cente r (finding) Tobacco use and 2021-03-25 2021-03-[address] [facility] exposure 00:00:00 00:00:00 Medical Center History SDOH 2021-03-25 2021-03-[address] [facility] Alcohol Frequency 00:00:00 00:00:00 Medical Center Cigarette 2021-03-24 2021-03-24 [facility] pack-years 00:00:00 00:00:00 of Medicine Sex Assigned At [address] [facility] 00:[facility]00 [facility] Center Smoking Status Start Date Stop Date Source Never smoked tobacco [facility] Iliana ege of Medicine Medications Ordered Filled Start Stop Current Ordering Indication Dosage Frequency Signature Comments Components Source Medication Medication Date Date Medication? Clinician (SIG) Name Name atorvastati Yes 40mg Take 40 mg Gal n (LIPITOR) 6-27 by mouth Iliana ege 40 MG 09:18: daily. of tablet 28 Medicin e ASPIRIN 81 2021-0 2021- No Take by [facility] OR 6-27 06-27 mouth. [place] 09:17: 00:00 of 00 :00 Medicin e ELIQUIS 5 2021-0 Yes TAKE 1 [facility] MG TABS 6-13 TABLET BY [place] 00:00: MOUTH of 00 TWICE Medicin DAILY e MULTAQ 400 0 Yes TAKE 1 [facility] MG TABS 5-16 TABLET BY [place] 00:00: MOUTH of 00 TWICE Medicin DAILY WITH e THE MORNING AND EVENING MEAL atorvastati 0 Yes 40mg Take 40 mg Gal n (LIPITOR) 3-28 by mouth Iliana ege 40 MG 09:11: daily. of tablet 26 Medicin e Cholecalcif 2021-0 Yes Take by [facility] charity 3-28 mouth. [place] ([facility]) 09:11: of 625 MCG 26 Medicin (14594 UT) e CAPS ASPIRIN 81 2021-0 Yes Take by [facility] OR 3-28 mouth. [place] 09:11: of 26 Medicin e Multiple 2021-0 Yes Take by [facility] Vitamin 3-28 mouth. [place] (MULTIVITAM 09:11: of IN ADULT 26 Medicin OR) e Bioflavonoi 2021-0 Yes Take by [facility] d Products 3-28 mouth. [place] (GRAPE SEED 09:11: of OR) 26 Medicin e Cholecalcif 2021-0 Yes Take by [facility] charity 3-28 mouth. [place] ([facility] 09:11: of 625 MCG 26 Medicin (91063 UT) e CAPS Multiple 2021-0 Yes Take by [facility] Vitamin 3-28 mouth. [place] (MULTIVITAM 09:11: of IN ADULT 26 Medicin OR) e Bioflavonoi 2021-0 Yes Take by [facility] d Products 3-28 mouth. [place] (GRAPE SEED 09:11: of OR) 26 Medicin e atorvastati 2020-11 Yes 40mg Take 40 mg Gal n (LIPITOR) 2-27 by mouth Iliaan ege 40 MG 09:02: daily. of tablet 11 Medicin e Cholecalcif 2020-11 Yes Take by [facility] charity 2-27 mouth. [place] ([facility]) 09:02: of 625 MCG 11 Medicin (13554 UT) e CAPS ASPIRIN 81 2020-11 Yes Take by [facility] OR 2-27 mouth. [place] 09:02: of 11 Medicin e Multiple 2020-11 Yes Take by [facility] Vitamin 2-27 mouth. [place] (MULTIVITAM 09:02: of IN ADULT 11 Medicin OR) e Bioflavonoi 2020-11 Yes Take by [facility] d Products 2-27 mouth. [place] (GRAPE SEED 09:02: of OR) 11 Medicin e losartan 2020-0 Yes [facility] (COZAAR) 50 9-28 College MG tablet 00:00: of 00 Medicin e losartan 2020-0 Yes [facility] (COZAAR) 50 9-28 College MG tablet 00:00: of 00 Medicin e losartan 2020-0 Yes [facility] (COZAAR) 50 9-28 College MG tablet 00:00: of 00 Medicin e atorvastati 2020-0 Yes 40mg Take 40 mg [facility] n (LIPITOR) 9-27 by mouth Iliana ege 40 MG 09:37: daily. of tablet 52 Medicin e Cholecalcif 2020-0 Yes Take by [facility] charity 9-27 mouth. [place] ([facility]) 09:37: of 625 MCG 52 Medicin (61770 UT) e CAPS ASPIRIN 81 0 Yes Take by [facility] OR 9-27 mouth. [place] 09:37: of 52 Medicin e Multiple 2020-0 Yes Take by [facility] Vitamin 9-27 mouth. [place] (MULTIVITAM 09:37: of IN ADULT 52 Medicin OR) e Bioflavonoi 2020-0 Yes Take by [facility] d Products 9-27 mouth. [place] (GRAPE SEED 09:37: of OR) 52 Medicin e atorvastati 2020-0 Yes 40mg Take 40 mg [facility] n (LIPITOR) 9-27 by mouth Iliana ege 40 MG 09:37: daily. of tablet 52 Medicin e Cholecalcif 2020-0 Yes Take by [facility] charity 9-27 mouth. [place] ([facility]) 09:37: of 625 MCG 52 Medicin (53458 UT) e CAPS ASPIRIN 81 Yes Take by [facility] OR 08-09 mouth. [place] 09:37: of 52 Medicin e Multiple Yes Take by Gal Vitamin 08-09 mouth. [place] (MULTIVITAM 09:37: of IN ADULT 52 Medicin OR) e Bioflavonoi Yes Take by [facility] d Products 08-09 mouth. [place] (GRAPE SEED 09:37: of OR) 52 Medicin e atenolol 0 2020- No 50mg 50 mg two [facility] (TENORMIN) 08-09 times College 100 MG 09:37: 00:00 daily. of tablet 28 :00 Medicin e atenolol 0 2020- No 50mg 50 mg two [facility] (TENORMIN) 08-09 times [place] 100 MG 09:37: 00:00 daily. of tablet 28 :00 Medicin e sotalol 0 Yes Gal (BETAPACE) 8-05 [place] 80 MG 00:00: of tablet 00 Medicin e sotalol 0 Yes [facility] (BETAPACE) 8-05 [place] 80 MG 00:00: of tablet 00 Medicin e sotalol 0 Yes Gal (BETAPACE) 8-05 [place] 80 MG 00:00: of tablet 00 Medicin e sotalol 0 Yes [facility] (BETAPACE) 8-05 [place] 80 MG 00:00: of tablet 00 Medicin e sotalol 2020-0 2021- No [facility] (BETAPACE) 8-05 05-09 College 80 MG 00:00: 00:00 of tablet 00 :00 Medicin e atenolol 0 Yes 50mg 50 mg two [facility] (TENORMIN) 04-19 times [place] 100 MG 08:41: daily. of tablet 46 Medicin e atorvastati 0 Yes 40mg Take 40 mg [facility] n (LIPITOR) 04-19 by mouth Iliana ege 40 MG 08:41: daily. of tablet 46 Medicin e Cholecalcif Yes Take by [facility] charity 04-19 mouth. [place] ([facility]) 08:41: of 625 MCG 46 Medicin (25681 UT) e CAPS ASPIRIN 81 Yes Take by [facility] OR 6-07 mouth. [place] 08:41: of 46 Medicin e Multiple Yes Take by [facility] Vitamin 6-07 mouth. [place] (MULTIVITAM 08:41: of IN ADULT 46 Medicin OR) e Bioflavonoi Yes Take by [facility] Products 6-07 mouth. [place] (GRAPE SEED 08:41: of OR) 46 Medicin e atenoloL Yes 50mg Q.5D Take [address] (TENORMIN) 5-20 by mouth 2 Taryn es 25 MG 21:07: (two) Medical tablet 02 times Center daily. aspirin 81 Yes 81mg QD Take [address] MG EC 5-20 by mouth [facility] tablet 21:07: daily. Medical 02 [place] cholecalcif Yes Take by [facility] charity, 5-20 mouth. [facility] vitamin D3, 21:07: Medica l (Decara) 02 Center 625 mcg (25,000 unit) Cap atorvastati Yes 40mg QD Take [address] [facility] n (LIPITOR) 5-20 by mouth Luke s 40 MG 21:07: daily. Medical tablet 02 [place] multivitami Yes 1{capsu QD Take [address] n capsule 5-20 le} capsule by Luke s 21:07: mouth Medical 02 daily. [place] grape seed Yes Take by [facility] extract 5-20 mouth. [facility] (GRAPE SEED 21:07: Medica l ORAL) 02 [place] ondansetron Yes 4mg Take [address] [facility] (ZOFRAN) 4 5-20 tablet (4 [facility] s MG tablet 00:00: mg total) Med ical 00 by mouth 3 Center (three) times daily as needed for Nausea. ibuprofen Yes 600mg Take 1 [facility] (MOTRIN) 5-19 Tablet by [facility] e 600 MG 00:00: mouth of tablet 00 every 6 Medicin hours as e needed for Pain. docusate Yes 100mg Take 1 [facility] sodium 5-19 capsule by [place] (COLACE) 00:00: mouth two of 100 MG [...] Pain. docusate 2020-0 Yes 100mg Take 1 [facility] sodium 5-19 capsule by [place] (COLACE) 00:00: mouth two of 100 MG [...] Take 1 Gal sodium 5-19 capsule by [place] (COLACE) 00:00: mouth two of 100 MG 00 times Medicin capsule daily. e tramadol 2020-0 Yes 1{tbl} Take 1 [facility] (ULTRAM) 50 5-19 Tablet by [facility]ge MG tablet 00:00: mouth of 00 every 6 Medicin hours as e needed for Pain. docusate 2020-0 Yes 100mg Take 1 [facility] sodium 5-19 capsule by [place] (COLACE) 00:00: mouth two of 100 MG [...] Pain. docusate 2020-0 Yes 100mg Take 1 [facility] sodium 5-19 capsule by [place] (COLACE) 00:00: mouth two of 100 MG 00 times Medicin capsule daily. e tramadol Yes 1{tbl} Take 1 [facility] (ULTRAM) 50 5-19 Tablet by Col lege MG tablet 00:00: mouth of 00 every 6 Medicin hours as e needed for Pain. ibuprofen Yes 600mg Take 1 [facility] (MOTRIN) 5-19 Tablet by [facility] e 600 MG 00:00: mouth of tablet 00 every 6 Medicin hours as e needed for Pain. docusate Yes 100mg Take 1 [facility] sodium 5-19 capsule by [place] (COLACE) 00:00: mouth two of 100 MG 00 times Medicin capsule daily. e tramadol Yes 1{tbl} Take 1 [facility] (ULTRAM) 50 5-19 Tablet by Col lege MG tablet 00:00: mouth of 00 every 6 Medicin hours as e needed for Pain. ibuprofen No 600mg Take 1 [facility] (MOTRIN) 5-19 05-09 Tablet by [facility] ge 600 MG 00:00: 00:00 mouth of tablet 00 :00 every 6 Medicin hours as e needed for Pain. Vital Signs Vital Name Observation Time Observation Value Comments Source HEIGHT 2021-04-01 08:00:00 167.6 cm WEIGHT 2021-04-01 08:00:00 68.2 kg HEIGHT 2021-03-25 15:01:00 167.6 cm WEIGHT 2021-03-25 15:01:00 69.4 kg Systolic blood 2022-05-09 14:16:00 126 mm[Hg] [facility] pressure Medicine Diastolic blood 2022-05-09 14:16:00 86 mm[Hg] [facility] pressure Medicine Heart rate 2022-05-09 14:16:00 93 /min [facility] Body temperature 2022-05-09 14:16:00 36.67 [facility] Body height 2022-05-09 14:16:00 167.6 cm [facility] Body weight 2022-05-09 14:16:00 68.947 kg [facility] BMI 2022-05-09 14:16:00 24.53 kg/m2 [facility] Systolic blood 2022-02-07 14:11:00 157 mm[Hg] [facility] of pressure Medicine Diastolic blood 2022-02-07 14:11:00 105 mm[Hg] [facility] of pressure Medicine Heart rate 2022-02-07 14:11:00 80 /min [facility] Body temperature 2022-02-07 14:11:00 36.67 [facility] Body height 2022-02-07 14:11:00 167.6 cm [facility] Body weight 2022-02-07 14:11:00 69.4 kg [facility] BMI 2022-02-07 14:11:00 24.69 kg/m2 [facility] Heart rate 2021-11-08 15:00:00 77 /min [facility] Body temperature 2021-11-08 15:00:00 36.67 [facility] Body height 2021-11-08 15:00:00 167.6 cm [facility] Body weight 2021-11-08 15:00:00 69.854 kg [facility] BMI 2021-11-08 15:00:00 24.86 kg/m2 [facility] Systolic blood 2021-11-08 15:00:00 156 mm[Hg] [facility] of pressure Medicine Diastolic blood 2021-11-08 15:00:00 78 mm[Hg] [facility] of pressure Medicine Systolic blood 2021-08-09 14:38:00 137 mm[Hg] [facility] of pressure Medicine Diastolic blood 2021-08-09 14:38:00 97 mm[Hg] [facility] pressure Medicine Heart rate 2021-08-09 14:38:00 84 /min [facility] Body temperature 2021-08-09 14:38:00 36.67 [facility] Body height 2021-08-09 14:38:00 167.6 cm [facility] Body weight 2021-08-09 14:38:00 68.493 kg [facility] BMI 2021-08-09 14:38:00 24.37 [facility] Sy[facility] 2021-04-19 13:40:00 165 mm[Hg] [facility] Medicine Diastolic blood 2021-04-19 13:40:00 104 mm[Hg] [facility] Medicine Heart rate 2021-04-19 13:40:00 77 /min [facility] Body temperature 2021-04-19 13:40:00 36.67 [facility] Body height 2021-04-19 13:40:00 167.6 cm [facility] weight 2021-04-19 13:40:00 68.493 kg [facility] BMI 2021-04-19 13:40:00 24.37 kg/m2 [facility] Systolic blood 2021-04-19 13:40:00 165 mm[Hg] [facility] Medicine Diastolic blood 2021-04-19 13:40:00 104 mm[Hg] [facility] Medicine Heart rate 2021-04-19 13:40:00 77 /min [facility] Body temperature 2021-04-19 13:40:00 36.67 [facility] Body height 2021-04-19 13:40:00 167.6 cm [facility] Body weight 2021-04-19 13:40:00 68.493 kg [facility] BMI 2021-04-19 13:40:00 24.37 kg/m2 [facility] HEIGHT 2021-04-01 08:00:00 167.6 cm WEIGHT 2021-04-01 08:00:00 68.2 kg HEIGHT 2021-03-25 15:01:00 167.6 cm WEIGHT 2021-03-25 15:01:00 69.4 kg Procedures This patient has no known procedures. Plan of Care Planned Activity Planned Date Details Comments Source Future Scheduled 2022-07-14 INFLUENZA VACCINE (#1) [facility] 00:00:00 [code = INFLUENZA Medical Ce nter VACCINE (#1)] Future Scheduled 2022 PNEUMOCOCCAL 65+ YRS ([address] [facility] Test 00:00:00 - PCV) [code = Medical Cente r PNEUMOCOCCAL 65+ YRS (1 - PCV)] Future Scheduled 2022-05-09 Screening for malignant [facility] Test 09:48:12 neoplasm of colon of Medicin e (procedure) [code = 947115760] Future Scheduled 2022-05-09 Screening for malignant [facility] Test 09:48:12 neoplasm of breast of Medici ne (procedure) [code = 365254784] Future Scheduled 2022-05-09 COVID-19 Vaccine (#1) [employer] [facility] [employer] Test 09:48:12 [code = COVID-19 of Medicine Vaccine (#1)] Future Scheduled 2022-05-09 TETANUS SHOT (ADULT) [facility] Test 09:48:12 [code = TETANUS SHOT of Medi cine (ADULT)] Future Scheduled 2022-05-09 Hepatitis C screening [employer] [employer] Test 09:48:12 (procedure) [code = of Medic ine 285854483] Future Scheduled 2022-05-09 Human immunodeficiency [facility] Test 09:48:12 virus screening of Medicine (procedure) [code = 034087691] Future Scheduled 2022-05-09 ZOSTER VACCINE (1 of 2) [facility] Test 09:48:12 [code = ZOSTER VACCINE of Ms dicine (1 of 2)] Future Scheduled 2022-05-09 FLU VACCINE > 6 MONTHS [facility] [employer] Test 09:48:12 [code = FLU VACCINE > 6 of M edicine MONTHS] Future Scheduled 2022-05-09 Screening for malignant [facility] Test 09:48:12 neoplasm of cervix of Medici ne (procedure) [code = 203630188] Future Scheduled 2022-02-07 Screening for malignant [facility] Test 09:25:55 neoplasm of colon of Medicin e (procedure) [code = 860873136] Future Scheduled 2022-02-07 Screening for malignant [facility] Test 09:25:55 neoplasm of breast of Medici ne (procedure) [code = 787750042] Future Scheduled 2022-02-07 COVID-19 Vaccine (1) [facility] Test 09:25:55 [code = COVID-19 of Medicine Vaccine (1)] Future Scheduled 2022-02-07 TETANUS SHOT (ADULT) [facility] [employer] Test 09:25:55 [code = TETANUS SHOT of Medi cine (ADULT)] Future Scheduled 2022-02-07 Hepatitis C screening [employer] [employer] Test 09:25:55 (procedure) [code = of Medic ine 150930489] Future Scheduled 2022-02-07 [facility] immunodeficiency [facility] Test 09:25:55 virus screening of Medicine (procedure) [code = 142522498] Future Scheduled 2022-02-07 Screening for malignant [facility] Test 09:25:55 neoplasm of cervix of Medici ne (procedure) [code = 392931242] Future Scheduled 2022-02-07 ZOSTER VACCINE (1 of 2) [facility] Test 09:25:55 [code = ZOSTER VACCINE of Me dicine (1 of 2)] Future Scheduled 2022-02-07 FLU VACCINE > 6 MONTHS [facility] Test 09:25:55 [code = FLU VACCINE > 6 of M edicine MONTHS] Future Scheduled 2022-02-07 PAP SMEAR - IMAGE Ordered: [facility] Test 09:16:11 GUIDED - NON MEDICARE 02/07/2022 of Med icine [code = NOCPT] Future Scheduled 2021-11-[address] [facility] Test 00:00:00 (12+) [code = Medical Center DEPRESSION SCREENING (12+)] Future Scheduled 2021-11-13 FALLS RISK SCREENING [facility] Test 00:00:00 [code = FALLS RISK Medical C enter SCREENING] Future Scheduled 2021-11-08 Screening for malignant [facility] Test 09:01:19 neoplasm of colon of Medicin e (procedure) [code = 534621034] Future Scheduled 2021-11-08 Screening for malignant [facility] Test 09:01:19 neoplasm of breast of Medici ne (procedure) [code = 146247453] Future Scheduled 2021-11-08 COVID-19 Vaccine (1) [facility] Test 09:01:19 [code = COVID-19 of Medicine Vaccine (1)] Future Scheduled 2021-11-08 TETANUS SHOT (ADULT) [facility] Test 09:01:19 [code = TETANUS SHOT of Medi cine (ADULT)] Future Scheduled 2021-11-08 Hepatitis C screening [employer] Test 09:01:19 (procedure) [code = of Medic ine 116055260] Future Scheduled 2021-11-08 Human immunodeficiency [facility] Test 09:01:19 virus screening of Medicine (procedure) [code = 308904704] Future Scheduled 2021-11-[address] [facility] Test 09:01:19 neoplasm of cervix of Medici ne (procedure) [code = 503154593] Future Scheduled 2021-11-08 ZOSTER VACCINE (1 of 2) [facility] Test 09:01:19 [code = ZOSTER VACCINE of Me dicine (1 of 2)] Future Scheduled 2021-11-08 FLU VACCINE > 6 MONTHS [facility] [employer] Test 09:01:19 [code = FLU VACCINE > 6 of M edicine MONTHS] Future Scheduled 2021-08-09 Screening for malignant [facility] Test 09:40:25 neoplasm of colon of Medicin e (procedure) [code = 792474775] Future Scheduled 2021-08-09 Screening for malignant [facility] Test 09:40:25 neoplasm of breast of Medici ne (procedure) [code = 573276712] Future Scheduled 2021-08-09 COVID-19 Vaccine (1) [facility] Test 09:40:25 [code = COVID-19 of Medicine Vaccine (1)] Future Scheduled 2021-08-09 TETANUS SHOT (ADULT) [facility] Test 09:40:25 [code = TETANUS SHOT of Medi cine (ADULT)] Future Scheduled 2021-08-09 Hepatitis C screening [facility] Test 09:40:25 (procedure) [code = of Medic ine 475916036] Future Scheduled 2021-08-09 Human immunodeficiency [facility] Test 09:40:25 virus screening of Medicine (procedure) [code = 265871933] Future Scheduled 2021-08-09 Screening for malignant [facility] Test 09:40:25 neoplasm of cervix of Medici ne (procedure) [code = 682212013] Future Scheduled 2021-08-09 ZOSTER VACCINE (1 of 2) [facility] Test 09:40:25 [code = ZOSTER VACCINE of Me dicine (1 of 2)] Future Scheduled 2021-08-09 FLU VACCINE > 6 MONTHS [facility] [employer] Test 09:40:25 [code = FLU VACCINE > 6 of M edicine MONTHS] Future Scheduled 2021-08-[address] [facility] Test 09:40:25 neoplasm of colon of Medicin e (procedure) [code = 293881105] Future Scheduled 2021-08-09 Screening for malignant [facility] Test 09:40:25 neoplasm of breast of Medici ne (procedure) [code = 595266696] Future Scheduled 2021-08-09 COVID-19 Vaccine (1) [facility] Test 09:40:25 [code = COVID-19 of Medicine Vaccine (1)] Future Scheduled 2021-08-09 TETANUS SHOT (ADULT) [facility] [employer] Test 09:40:25 [code = TETANUS SHOT of Medi cine (ADULT)] Future Scheduled 2021-08-09 Hepatitis C screening [employer] Test 09:40:25 (procedure) [code = of Medic ine 952843320] Future Scheduled 2021-08-09 Human immunodeficiency [facility] [employer] Test 09:40:25 virus screening of Medicine (procedure) [code = 228533494] Future Scheduled 2021-08-09 Screening for malignant [facility] Test 09:40:25 neoplasm of cervix of Medici ne (procedure) [code = 682796623] Future Scheduled 2021-08-09 ZOSTER VACCINE (1 of 2) [facility] Test 09:40:25 [code = ZOSTER VACCINE of Ms dicine (1 of 2)] Future Scheduled 2021-08-09 FLU VACCINE > 6 MONTHS [facility] [employer] Test 09:40:25 [code = FLU VACCINE > 6 of M edicine MONTHS] Future Scheduled 2021-04-19 Screening for malignant [facility] Test 08:41:39 neoplasm of colon of Medicin e (procedure) [code = 603254186] Future Scheduled 2021-04-19 Screening for malignant [facility] Test 08:41:39 neoplasm of breast of Medici ne (procedure) [code = 046428338] Future Scheduled 2021-04-19 COVID-19 Vaccine (1) [facility] Test 08:41:39 [code = COVID-19 of Medicine Vaccine (1)] Future Scheduled 2021-04-19 TETANUS SHOT (ADULT) [facility] [employer] Test 08:41:39 [code = TETANUS SHOT of Medi cine (ADULT)] Future Scheduled 2021-04-19 Hepatitis C screening [employer] Test 08:41:39 (procedure) [code = of Medic ine 466763282] Future Scheduled 2021-04-19 Human immunodeficiency [facility] [employer] Test 08:41:39 virus screening of Medicine (procedure) [code = 322370941] Future Scheduled 2021-04-[address] [facility] Test 08:41:39 neoplasm of cervix of Medici ne (procedure) [code = 092790236] Future Scheduled 2021-04-19 ZOSTER VACCINE (1 of 2) [facility] Test 08:41:39 [code = ZOSTER VACCINE of Me dicine (1 of 2)] Future Scheduled 2021-04-19 FLU VACCINE > 6 MONTHS [facility] Test 08:41:39 [code = FLU VACCINE > 6 of M edicine MONTHS] Future Scheduled 2007 SHINGLES VACCINES ([address] [facility] Test 00:00:00 2) [code = SHINGLES Medical Center VACCINES (1 of 2)] Future Scheduled 2002 Lipid panel (procedure) [facility] Test 00:00:00 [code = 41895611] Medical Ce nter Future Scheduled 1976 DTAP/TDAP/TD VACCINES [facility] Test 00:00:00 (1 - Tdap) [code = Medical C enter DTAP/TDAP/TD VACCINES (1 - Tdap)] Future Scheduled 1975 HEPATITIS C SCREENING [facility] Test 00:00:00 [code = HEPATITIS C Medical Center SCREENING] Future Scheduled 1956-01-09 COVID-19 VACCINE (#1) [facility] 00:00:00 [code = COVID-[address] VACCINE (#1)] Future Scheduled 1955 Screening for malignant [facility] 00:00:00 neoplasm of breast Medical C enter (procedure) [code = 015112856] Future Scheduled 1955 CT Colonography (combo) [facility] 00:00:00 [code = CT Colonography [facility] (combo)] Future Scheduled 1955 Screening for malignant [facility] 00:00:00 neoplasm of colon Medical Ce nter (procedure) [code = 447333460] Future Scheduled 1955 Screening for malignant [facility] 00:00:00 neoplasm of colon Medical Ce nter (procedure) [code = 426548037] Future Scheduled 1955 DXA SCAN [code = DXA [facility] 00:00:00 SCAN] Medical Center Future Scheduled 1955 Screening for malignant [facility] 00:00:00 neoplasm of colon Medical Ce nter (procedure) [code = 742213401] Future Scheduled 1955 Screening for malignant [facility] 00:00:00 neoplasm of colon Medical Ce nter (procedure) [code = 129145522] Future Scheduled 1955 Sigmoidoscopy [code = [facility] 00:00:[facility] Sigmoidoscopy] Medical Cente r Encounters Start End Encounter Admission Attending Care Care Encounter Source Date/Time Date/Time Type Type Clinicians Facility Department ID 2021-08-21 Outpatient ALEX, [facility] Surgery [id number] [facility] 19:35:15 TRAOSWALDO 2021-03-09 Outpatient SYSTEM, LUCINDA JANE [id number] 09:15:54 PROVIDER Durga o n 2022-05-09 2022-05-09 Office BUCYRUS, [facility] [id number] [facility] 09:06:59 11:48:17 Visit TRACILYN Chauncey 350.1.13.21 C ollege 0.2.7.2.686 of [id number] [facility] luis fernando 520 e 2022-02-07 2022-02-07 Office BUCYRUS, [facility] [id number] [facility] 09:03:38 13:34:12 Visit TRACILYN Chauncey 350.1.13.21 C ollege 0.2.7.2.686 of [id number] [facility] luis fernando 520 e 2021-11-08 2021-11-08 Office BUCYRUS, [facility] [id number] [facility] 08:51:55 12:18:59 Visit TRACILYN Chauncey 350.1.13.21 C ollege 0.2.7.2.686 of [id number] [facility] luis fernando 520 e 2021-08-09 2021-08-09 Office [facility] [id number] [facility] 09:22:27 09:52:27 Visit Tracilyn Chauncey 350.1.13.21 C ollege Lupe 0.2.7.2.686 of [id number] Medi luis fernando 520 e 2021-04-19 2021-04-19 [facility] [id number] 08:36:47 09:06:47 Visit Javy McclureNair 350.1.13.21 Lupe 0.2.7.2.686 [id number] 2021-04-19 2021-04-19 [facility] [id number] [facility] 08:36:47 09:06:47 Visit Traoswaldo Chauncey 350.1.13.21 C lazara Benderle 0.2.7.2.686 of [id number] [facility] luis fernando 520 e 2021-03-29 2021-03-29 Outpatient [facility] [id number] [facility] 00:00:00 00:00:00 JAVY 2021-03-29 2021-03-29 Outpatient [facility] [id number] [facility] 00:00:00 00:00:00 2021-03-24 2021-03-24 [facility] [id number] [facility] 07:51:03 13:43:43 JAVY Colle ge of Medicin e Results Test Description Test Time Test Comments Results Result Sourc e Comments TISSUE EXAM 2021-04-20 Surgical Pathology Report 10:34:00 Case: [id number] Authorizing Provider: Javy Alex, Collected: 04/01/2021 01:06 PM Ordering Location: [facility] PERIOPERATIVE Received: 04/01/2021 01:24 PM SERVICES [...] assess the need for germline testing.PBCodes : 39895 x 1, 48054 x 3 Addendum electronically signed by Lore [...] PARATUBAL ENDOMETRIOSIS Signing Pathologist Direct Phone Line: [phone] y signed by Lore Esquivel MD on [...] (pN): pNX FIGO STAGE FIGO Stage: [place] [address], [address], 7[address]33, 18865J. Uterus, cervix, bilateral tubes and ovariesA. Received [...] blood.Ink code:Anterior-BluePosteri or-blackSection code:FS A1: Anterior endomyometrium, labor union business representative (to include the whorled nodule)A2-A5: Anterior longitudinal endomyometrium, sections starting with cervix in T3X1-R0: Anterior longitudinal endomyometrium, sections starting with cervix in A1X27-U66: Posterior longitudinal endomyometrium, section starting with cervix in T50X84-D66: Posterior longitudinal endomyometrium, sectioned starting with cervix in a 14A18: Anterior endomyometrium with the whorled nodule, hneuwjhapvuvlcC17: Right ovary, qlotksenbpwotqK88: Left ovary, labor union business representative following light aeshcpnhrmwtdttJ90: Right fimbria in its entirety and labor union business representative cross-section of fallopian lhqwJ98-L30: Left fimbria in its entirety and labor union business representative cross-section of fallopian tube (to include [...] (test code = 355) 27 meq/L 22-29 Research Quality Assurance Analyst ID - DBBUN AND CREATININE [id number] 15:23:00 Test Item Value Reference Range Interpretation Comments BLOOD UREA NITROGEN 13 mg/dL 7-21 (BEAKER) (test code = 354) CREATININE (BEAKER) 0.87 mg/dL 0.57-1.25 (test code = 358) BUN/CREAT RATIO 15 For a normal (BEAKER) (test code individu al on a = 6080503019) normal diet, t he reference inter deyanira for the mass ra erick ranges between 12:1 and 20:1 (BUN i n mg/dL/creatinin e in mg/dL) EGFR (BEAKER) (test 66 mL/min/1.73 ESTIMA SUJATA GFR IS code = 1092) sq m NOT ACCURATE CREATININE CLEARANCE IN PREDICTING GLOMERULAR FILTRATION RATE . ESTIMATED GFR I S NOT APPLICABLE FOR DIALYSIS PATIEN TS. Research Quality Assurance Analyst ID - [id number] 15:06:00 Test Item Value Reference Range Interpretation Comments HEMOGLOBIN (BEAKER) (test code = 14.1 GM/DL 11.2-15.7 410) Research Quality Assurance Analyst ID - [id number], [id number] 13:31:00Unlisted Reason for Exam - Click Yes and Enter Reason Below->YesUnlisted Reason for Exam->malignant neoplasm of uterus, unspecified siteWill this procedure require oral contrast?->[facility] 1955 Sex: FFINAL REPORT [...] MDReport Verified Date/Time: 03/29/2021 13:31:56 Reading Location: [facility] C013Y CT Body Reading Room [id number] 09:14:00 Test Item Value Reference Range Interpretation Comments POC-CREATININE 0.9 mg/dL 0.6-1.3 : TESTED AT [facility] ([facility]) (test [address], code = 1859) [facility] 7703 0: Research Quality Assurance Analyst/Techni stefano ID = [id number] for Gen Joyceny POC-EGFR ([facility]) 63 mL/min/1.73M2 (test code = 1860)
[2022-08-07] MEDS ORDERED: ONDANSETRON 4 MG/2 ML VIAL ONE (20:48)
[2022-08-07] MEDS ORDERED: NA CHLORIDE 0.9% 1,000 ML ONE (20:48)
[2022-08-07 20:56] LABS: Urine Blood 2+ (Negative); Urine Glucose Negative (Negative); Urine Protein 1+ (Negative); Urine Specific Gravity 1.015 (1.005-1.030)
[2022-08-07 21:04] LABS: Urine Mucus Slight /HPF (None Seen); Urine RBC 21-50 /HPF (None Seen); Urine WBC Clump Occasional /HPF (None Seen)
[2022-08-07 21:05] LABS: Urine Bacteria 20-50 /HPF (<20)
[2022-08-07 21:14] LABS: Absolute Lymphocytes (CBC) 0.6 K/uL (0.7-4.9); Hematocrit 38.7 % (36.0-45.0); Lymphocytes % 5.3 % (15.3-44.8); MPV 8.3 fL (7.6-11.3); RBC Red Blood Cell Count 4.35 M/uL (3.86-4.86)
[2022-08-07] MEDS ORDERED: ACETAMINOPHEN 500 MG TAB ONE (21:15)
[2022-08-07 21:30] LABS: Albumin 3.3 g/dL (3.4-5.0); Bilirubin Total 0.7 mg/dL (0.2-1.0); Potassium 3.5 mmol/L (3.5-5.1); Protein, Total 7.2 g/dL (6.4-8.2); Troponin High Sensitivity 4.4 pg/mL (<58.9)
[2022-08-07] MEDS ORDERED: CEFTRIAXONE 1000 MG/VIAL ONE (22:41)
[2022-08-07] MEDS ORDERED: NA CHLORIDE 0.9% 50 ML ONE (22:42)
[2022-08-07] MEDS ORDERED: KETOROLAC 30 MG/ML INJ ONE (23:00)
--- NOTE | 2022-08-07 23:24 | EDPHYS ---
Physician Documentation [facility] Name: Briana Jean Age: 67 yrs Sex: Female : 1955 Arrival Date: 08/07/2022 Time: 19:48 Bed 7 Private MD: ED Physician Michelle Skelton HPI: 08/07 20:23 This 67 yrs old Female presents to ER via Ambulatory with complaints of Nausea/Vomiting.sd2 20:23 67 yo F presents with CC of subjective fever, chills, nausea, vomiting and upper sd2 abdominal pain that started today. She reports a coworker recently had similar symptoms as well. Denies any chest pain or SOB but states her HR has been high on her watch but she has not been in A-fib. She did vomit up her Multaq and Eliquis she believes as well today. . Historical: - Allergies: 19:57 Latex, Natural Rubber; hb 19:57 Morphine; hb - Home Meds: 21:53 Eliquis 5 mg Oral tab 1 tab 2 times per day [Active]; Multaq 400 mg Oral tab 1 tab 2 ll3 times per day [Active]; losartan 75 mg Oral 1 tab once daily [Active]; atorvastatin 40 mg oral tab 1 tab once daily [Active]; - PMHx: 19:57 Atrial fibrillation; Hypertensive disorder; hb - PSHx: 19:57 hysterectomy; hb ROS: 20:23 Constitutional: Positive for fever, chills, Negative for weight loss, Eyes: Negative sd2 for injury, pain, redness, and discharge, Cardiovascular: Negative for chest pain, palpitations, and edema, Respiratory: Negative for shortness of breath, cough, wheezing. Abdomen/GI: Positive for abdominal pain, nausea, vomiting, negative for diarrhea. MS/Extremity: Negative for injury and deformity, Skin: Negative for injury, rash, and discoloration, Neuro: Negative for headache, numbness and tingling. Exam: 20:23 Constitutional: This is a well developed, well nourished patient who is awake, alert, sd2 and in no acute distress. Head/Face: Normocephalic, atraumatic. Eyes: EOMI, normal conjunctiva bilaterally Chest/axilla: Normal chest wall appearance and motion. Nontender with no deformity. Cardiovascular: Tachycardic rate and regular rhythm with a normal S1 and S2. No gallops, murmurs, or rubs. 2+ distal pulses. Respiratory: Lungs have equal breath sounds bilaterally, clear to auscultation and percussion. No rales, rhonchi or wheezes noted. No increased work of breathing, no retractions or nasal flaring. Abdomen/GI: Soft, ND, mild epigastric TTP present, no rebound or guarding Skin: Warm, dry with normal turgor. Normal color with no rashes, no lesions, and no evidence of cellulitis. MS/ Extremity: Pulses equal, no cyanosis. Neurovascular intact. Full, normal range of motion. Ambulatory without difficulty. Psych: Awake, alert, with orientation to person, place and time. Behavior, mood, and affect are within normal limits. 20:23 ECG was reviewed by the Attending Physician. Sinus tachycardia, rate 124, no STEMI criteria, occasional PVCs present, ST depressions noted in V3-V6 Vital Signs: 19:55 BP 148 / 102; Pulse 134; Resp 20; Temp 99.1(TE); Pulse Ox 97% on R/A; Weight 68.95 kg; hb Height 5 ft. 6 in. (167.64 cm); Pain 7/10; 21:14 BP 134 / 76; Pulse 91; Resp 17; Pulse Ox 100% ; ll3 22:15 BP 112 / 72; Pulse 81; Resp 16; Pulse Ox 96% ; ll3 19:55 Body Mass Index 24.53 (68.95 kg, 167.64 cm) hb MDM: 19:58 Patient medically screened. sd2 20:23 Differential diagnosis: Gastritis, cholecystitis, pancreatitis, SBO, diverticulitis, sd2 kidney stone, appendicitis, UTI, dehydration, electrolyte abnormality among others. Data reviewed: vital signs, nurses notes. 23:20 Data reviewed: lab test result(s), EKG. Counseling: I had a detailed discussion with sd2 the patient and/or guardian regarding: the historical points, exam findings, and any diagnostic results supporting the discharge/admit diagnosis, lab results, the need for outpatient follow up, to return to the emergency department if symptoms worsen or persist or if there are any questions or concerns that arise at home. Medical screen evaluation completed. [facility]. ED course: Labs reviewed and consistent with UTI. COVID and flu testing negative. Benign abdominal exam. Tolerating PO after IVFs and Zofran with significantly improved HR. Trop neg. EKG with no ischemic changes. Pt feeling improved and comfortable with plan for discharge with oral antibiotics and follow up with PCP. Pt verbalizes understanding of discharge plan and strict return precautions. . 08/07 20:08 Order name: CBC with Diff; Complete Time: 22:25 sd2 08/07 20:08 Order name: CMP; Complete Time: 22:25 sd2 08/07 20:08 Order name: Lipase; Complete Time: 22:25 sd08/07 20:08 Order name: Troponin High Sensitivity; Complete Time: 22:25 sd2 08/07 20:08 Order name: Urine Microscopic Only; Complete Time: 22:25 sd2 08/07 20:08 Order name: SARS-COV-2 RT PCR (Document "Date of Onset" if Symptomatic); Complete Time: sd2 22:08/07 20:08 Order name: Influenza Screen (a \\T\\ B); Complete Time: 22:25 sd2 08/07 20:57 Order name: Urine Dipstick-Ancillary; Complete Time: 22:25 EDNC 08/07 21:29 Order name: Urine Culture EDNC 08/07 20:08 Order name: EKG - Nurse/Tech; Complete Time: 20:20 sd2 08/07 20:08 Order name: Urine Dipstick-Ancillary (obtain specimen); Complete Time: 20:54 sd2 08/07 22:33 Order name: PO challenge; Complete Time: 22:50 sd2 Administered Medications: 20:53 Drug: NS 0.9% 1000 ml Route: IV; Rate: 1 bolus; Site: left antecubital; ll3 21:53 Follow up: Response: No adverse reaction; IV Status: Completed infusion; IV Intake: ha1 1000ml 20:53 Drug: Zofran (Ondansetron) 4 mg Route: IVP; Site: left antecubital; ll3 23:35 Follow up: Response: No adverse reaction; Marked relief of symptoms ll3 21:09 Drug: Tylenol 1000 mg Route: PO; ll3 23:35 Follow up: Response: No adverse reaction ll3 22:45 Drug: Rocephin (cefTRIAXone) 1 grams Route: IV; Rate: bolus; Site: left antecubital; ll3 23:35 Follow up: Response: No adverse reaction; IV Status: Completed infusion; IV Intake: ll3 100ml 22:55 Not Given (Patient Refused): Ketorolac 15 mg IVP once ll3 Disposition Summary: 08/07/22 23:24 Discharge Ordered Location: Home sd2 Problem: new sd2 Symptoms: have improved sd2 Condition: Stable sd2 Diagnosis - UTI/ Urinary tract infection, site not specified sd2 - Nausea and vomiting sd2 Followup: sd2 - With: Private Physician - When: 2 - 3 days - Reason: Recheck today's complaints, Continuance of care, Re-evaluation by your physician Discharge Instructions: - Discharge Summary Sheet sd2 - Nausea and Vomiting, Adult sd2 - Urinary Tract Infection, Adult sd2 Forms: - Medication Reconciliation Form sd2 - Thank You Letter sd2 - Antibiotic Education sd2 - Prescription Opioid Use sd2 Prescriptions: - cefdinir 300 mg Oral capsule - take 1 capsule by ORAL route every 12 hours for 10 days; 20 capsule; Refills: sd2 0, Product Selection Permitted - Zofran 4 mg Oral Tablet - take 1 tablet by ORAL route every 6 hours As needed; 15 tablet; Refills: 0, sd2 Product Selection Permitted Signatures: Dispatcher [employer] EDOsiris Dalal RN RN Nawaf Jewell RN RN 3 Michelle Skelton MD MD ms2 Vivian Serra RN ha1
--- NOTE | 2022-08-07 23:24 | ER ---
Nurse's Notes [facility] Name: Briana Jean Age: 67 yrs Sex: Female : 1955 Arrival Date: 08/07/2022 Time: 19:48 Bed 7 Private MD: Diagnosis: UTI/ Urinary tract infection, site not specified;Nausea and vomiting Presentation: 08/07 19:55 Chief complaint: Headache, chills, body aches, upper abdominal pain, palpitations, and hb N/V x 2 days. Coronavirus screen: Client presents with at least one sign or symptom that may indicate coronavirus-19. Standard/surgical mask placed on the client. Provider contacted for isolation considerations. Ebola Screen: No symptoms or risks identified at this time. Risk Assessment: Do you want to hurt yourself or someone else? Patient reports no desire to harm self or others. Onset of symptoms was August 06, 2022. 19:55 Method Of Arrival: Ambulatory hb 19:55 Acuity: DEIRDRE 3 hb 21:13 Initial Sepsis Screen: Does the patient meet any 2 criteria? No. Patient's initial ll3 sepsis screen is negative. Does the patient have a suspected source of infection? No. Patient's initial sepsis screen is negative. Historical: - Allergies: 19:57 Latex, Natural Rubber; hb 19:57 Morphine; hb - Home Meds: 21:53 Eliquis 5 mg Oral tab 1 tab 2 times per day [Active]; Multaq 400 mg Oral tab 1 tab 2 ll3 times per day [Active]; losartan 75 mg Oral 1 tab once daily [Active]; atorvastatin 40 mg oral tab 1 tab once daily [Active]; - PMHx: 19:57 Atrial fibrillation; Hypertensive disorder; hb - PSHx: 19:57 hysterectomy; hb Screenin:11 Abuse screen: Denies threats or abuse. Denies injuries from another. Nutritional ll3 screening: No deficits noted. Tuberculosis screening: No symptoms or risk factors identified. Fall Risk No fall in past 12 months (0 pts). No secondary diagnosis (0 pts). IV access (20 points). Ambulatory Aid- None/Bed Rest/Nurse Assist (0 pts). Gait- Normal/Bed Rest/Wheelchair (0 pts) Mental Status- Oriented to own ability (0 pts). Total Park Fall Scale indicates No Risk (0-24 pts). Assessment: 21:10 General: Appears uncomfortable, Behavior is calm, cooperative. Pain: Complains of pain ll3 in H/A Pain currently is 6 out of 10 on a pain scale. Is continuous. Neuro: Level of Consciousness is awake, alert, obeys commands, Oriented to person, place, time, situation. Cardiovascular: Patient's skin is warm and dry. Respiratory: Respiratory effort is even, unlabored, Respiratory pattern is regular, symmetrical. GI: Abdomen is round non-distended, Stools are reported to be normal. Last BM was August 06, 2022. Reports nausea, vomiting, Patient currently denies constipation, diarrhea. Derm: Skin is pink, warm \T\ dry. Vital Signs: 19:55 BP 148 / 102; Pulse 134; Resp 20; Temp 99.1(TE); Pulse Ox 97% on R/A; Weight 68.95 kg; hb Height 5 ft. 6 in. (167.64 cm); Pain 7/10; 21:14 BP 134 / 76; Pulse 91; Resp 17; Pulse Ox 100% ; ll3 22:15 BP 112 / 72; Pulse 81; Resp 16; Pulse Ox 96% ; ll3 19:55 Body Mass Index 24.53 (68.95 kg, 167.64 cm) hb ED Course: 19:48 Patient arrived in ED. ag3 19:57 Triage completed. hb 19:57 Arm band placed on. hb 19:58 Michelle Skelton MD is Attending Physician. sd2 20:20 EKG done, by ED staff, reviewed by Michelle Skelton MD. mb4 21:13 Patient has correct armband on for positive identification. Bed in low position. Call ll3 light in reach. Side rails up X 1. Adult w/ patient. 21:53 Nawaf Jewell, ZACHARY is Primary Nurse. ll3 23:34 No provider procedures requiring assistance completed. IV discontinued, intact, ll3 bleeding controlled, No redness/swelling at site. Pressure dressing applied. Administered Medications: 20:53 Drug: NS 0.9% 1000 ml Route: IV; Rate: 1 bolus; Site: left antecubital; ll3 21:53 Follow up: Response: No adverse reaction; IV Status: Completed infusion; IV Intake: ha1 1000ml 20:53 Drug: Zofran (Ondansetron) 4 mg Route: IVP; Site: left antecubital; ll3 23:35 Follow up: Response: No adverse reaction; Marked relief of symptoms ll3 21:09 Drug: Tylenol 1000 mg Route: PO; ll3 23:35 Follow up: Response: No adverse reaction ll3 22:45 Drug: Rocephin (cefTRIAXone) 1 grams Route: IV; Rate: bolus; Site: left antecubital; ll3 23:35 Follow up: Response: No adverse reaction; IV Status: Completed infusion; IV Intake: ll3 100ml 22:55 Not Given (Patient Refused): Ketorolac 15 mg IVP once ll3 Medication: 23:34 VIS not applicable for this client. ll3 Intake: 21:53 IV: 1000ml; Total: 1000ml. ha1 23:35 IV: 100ml; Total: 1100ml. ll3 Outcome: 23:24 Discharge ordered by . sd2 23:34 Discharged to home ambulatory, with significant other. ll3 23:34 Condition: stable 23:34 Discharge instructions given to patient, significant other, Instructed on discharge instructions, follow up and referral plans. medication usage, Demonstrated understanding of instructions, follow-up care, medications, Prescriptions given X 2. 23:37 Patient left the ED. ll3 Signatures: Osiris Brice RN RN Karly Brice 4 Camille Santoyo 3 Nawaf Jewell RN RN ll3 Michelle Skelton MD MD sd2 Vivian Serra RN RN 1
--- NOTE | 2022-08-09 17:29 | EKG ---
Test Date: 2022-08-07 Test Time: 20:15:06 Glass Or Mirror Inspector: MATIAS MEASUREMENT RESULTS: Intervals: Rate: 124 [place]: 170 QRSD: 86 QT: 304 QTc: 436 [place]: P: 34 [place]: 170 QRS: 15 T: 68 INTERPRETIVE STATEMENTS: Sinus tachycardia with occasional premature ventricular complexes Septal infarct, age undetermined Abnormal ECG Compared to ECG 07/06/2022 20:21:31 Myocardial infarct finding now present Short [place] interval no longer present ST (T wave) deviation no longer present Possible ischemia no longer present Electronically Signed On 08-09-22 17:27:12 CDT by Ted Oscar
[2022-08-09 23:24] VITALS: TEMP 99.1
[2022-08-09 23:38] VITALS: BP 112/72; O2SAT 96
== END 2022-08-07 23:37 | disposition home or self-care (01) ==
LOC: ER 19:43
DX: N39.0 Urinary tract infection, site not specified (principal); I10 Essential (primary) hypertension; I48.91 Unspecified atrial fibrillation; Z79.01 Long term (current) use of anticoagulants; Z20.822 Contact with and (suspected) exposure to COVID-19; Z88.5 Allergy status to narcotic agent; Z91.040 Latex allergy status; Z91.048 Other nonmedicinal substance allergy status
CPT/HCPCS: 96365; 96361; 93005; 87088; 85025; 87086; 36415; 84484; 83690; 80053; 87804 ×2; 96375; 99283; U0003; J7030; J2405; 81003; 81015; 87077; 87186

== ENCOUNTER 2025-03-02 10:09 | Observation (INO) | payer BC, OTHER ==
[2025-03-02] MEDS ORDERED: METOPROLOL TARTRATE 5 MG/5 ML INJ IV ONE (10:34)
[2025-03-02] MEDS ORDERED: NA CHLORIDE 0.9% 1,000 ML ONE (10:35)
[2025-03-02] MEDS ORDERED: MAGNESIUM SULFATE 1 gm IVPB 1 GM/100 ML BAG IV ONE (10:35)
[2025-03-02] MEDS ORDERED: ENOXAPARIN 80 MG/0.8 ML SQ ONE (10:58)
[2025-03-02 11:08] LABS: Absolute Eosinophils 0.1 K/uL (0-0.5); Absolute Lymphocytes (CBC) 1.4 K/uL (0.7-4.9); Absolute Monocytes 0.6 K/uL (0.1-1.3); Basophils % 0.5 % (0-1.3); Eosinophils % 1.3 % (0-4.4); Hematocrit 42.5 % (36.0-45.0); Hemoglobin 14.4 g/dL (12.0-15.0); MCH 30.3 pg (27.0-35.0); MCV 89.1 fL (80-100); MPV 8.2 fL (7.6-11.3); Monocytes % 7.4 % (3.3-12.3); Neutrophils % 73.8 % (41.7-73.7); Platelets 315 thou/uL (152-406); RBC Red Blood Cell Count 4.77 M/uL (3.86-4.86); Red Cell Distribution Width 13.8 % (12.1-15.2)
[2025-03-02] MEDS ORDERED: METOPROLOL TAR 50 MG TAB ONE (11:10)
[2025-03-02] MEDS ORDERED: DIGOXIN 0.25 MG/ML AMP ONE (11:10)
[2025-03-02 11:11] LABS: PT Prothrombin Time 12.4 SECONDS (10-13.0); Protime INR 1.09
--- NOTE | 2025-03-02 11:19 | RAD REPORT ---
Procedure: Chest Single View HISTORY: Cough COMPARISON: 2021 FINDINGS: The lungs appear clear of acute infiltrate. No significant pleural effusion noted. The heart is normal size. night monitor in place IMPRESSION: No acute abnormality is displayed.
[2025-03-02 11:35] LABS: ALT/SGPT 21 U/L (13-56); AST/SGOT 16 U/L (15-37); Albumin 3.9 g/dL (3.4-5.0); Albumin/Globulin Ratio 1.1 (1.1-1.8); Alkaline Phosphatase 121 U/L (45-117); Anion Gap 10.6 mEq/L (5.0-15.0); BUN Blood Urea Nitrogen 17 mg/dL (7-18); Bicarbonate 24 mEq/L (21-32); Bilirubin Total 0.6 mg/dL (0.2-1.0); Globulin 3.6 g/dL (2.3-3.5); Glomerular Filtration Rate 60 ml/min (=/>90); Glucose Level 137 mg/dL (74-106); Magnesium 2.1 mg/dL (1.6-2.4); NT PRO-BNP 994 pg/mL (<125); Potassium 3.6 mEq/L (3.5-5.1); Protein, Total 7.5 g/dL (6.4-8.2); Sodium Level 136 mEq/L (136-145); Thyroid Stimulating Hormone 0.896 uIU/mL (0.358-3.740)
--- NOTE | 2025-03-02 11:35 | EDPHYS ---
Physician Documentation [facility] Name: Briana Jean Age: 69 yrs Sex: Female : 1955 Arrival Date: 03/02/2025 Time: 10:09 Bed 5 Private MD: ED Physician David Dial HPI: 03/02 10:48 This 69 yrs old Female presents to ER via Wheelchair with complaints of AFIB. mary 10:48 The patient or guardian reports chest pain that is located primarily in the substernal mary area, anterior chest wall, bilaterally. Onset: just prior to arrival, this morning. The patient presents with a history of irregular heart beat, heart racing. Context: The symptoms occur at rest. Modifying factors: The symptoms are aggravated by nothing. The symptoms are alleviated by nothing. Associated signs and symptoms: Pertinent positives: chest pain. The chest pain is described as palpitations. Modifying factors: The symptoms are alleviated by nothing. the symptoms are aggravated by nothing. Historical: - Allergies: 10:34 Latex; kc6 10:34 Morphine; kc6 - Home Meds: 10:56 aspirin 81 mg oral tablet [Active]; atorvastatin 40 mg Oral tab 1 tab once daily jl7 [Active]; losartan 100 mg oral tablet 1 tab daily [Active]; metoprolol succinate 100 mg oral Tablet, Extended Release 24 hr 0.5 tabs every 12 hours [Active]; - PMHx: 10:34 Hypertensive disorder; Atrial fibrillation; Hypercholesterolemia; endometrial cancer; kc6 - PSHx: 10:34 hysterectomy; Appendectomy; cardiac ablation with loop recorder; kc6 - Immunization history:: Adult Immunizations up to date. - Infectious Disease History:: Denies. - Social history:: Smoking status: Patient denies any tobacco usage or history of. - Family history:: not pertinent. ROS: 10:48 Constitutional: Negative for fever, chills, and weight loss, Eyes: Negative for injury, mary pain, redness, and discharge, ENT: Negative for injury, pain, and discharge, Neck: Negative for injury, pain, and swelling, Respiratory: Negative for shortness of breath, cough, wheezing, and pleuritic chest pain, Abdomen/GI: Negative for abdominal pain, nausea, vomiting, diarrhea, and constipation, Back: Negative for injury and pain, : Negative for injury, bleeding, discharge, and swelling, MS/Extremity: Negative for injury and deformity, Skin: Negative for injury, rash, and discoloration, Neuro: Negative for headache, weakness, numbness, tingling, and seizure, Psych: Negative for depression, anxiety, suicide ideation, homicidal ideation, and hallucinations, Allergy/Immunology: Negative for hives, rash, and allergies, Endocrine: Negative for neck swelling, polydipsia, polyuria, polyphagia, and marked weight changes, Hematologic/Lymphatic: Negative for swollen nodes, abnormal bleeding, and unusual bruising, 10:48 Cardiovascular: Positive for chest pain, palpitations, Exam: 10:48 Constitutional: This is a well developed, well nourished patient who is awake, alert, mary and in no acute distress. Head/Face: Normocephalic, atraumatic. Eyes: Pupils equal round and reactive to light, extra-ocular motions intact. Lids and lashes normal. Conjunctiva and sclera are non-icteric and not injected. Cornea within normal limits. Periorbital areas with no swelling, redness, or edema. ENT: Nares patent. No nasal discharge, no septal abnormalities noted. Tympanic membranes are normal and external auditory canals are clear. Oropharynx with no redness, swelling, or masses, exudates, or evidence of obstruction, uvula midline. Mucous membranes moist. Neck: Trachea midline, no thyromegaly or masses palpated, and no cervical lymphadenopathy. Supple, full range of motion without nuchal rigidity, or vertebral point tenderness. No Meningismus. Chest/axilla: Normal chest wall appearance and motion. Nontender with no deformity. No lesions are appreciated. Respiratory: Lungs have equal breath sounds bilaterally, clear to auscultation and percussion. No rales, rhonchi or wheezes noted. No increased work of breathing, no retractions or nasal flaring. Abdomen/GI: Soft, non-tender, with normal bowel sounds. No distension or tympany. No guarding or rebound. No evidence of tenderness throughout. Back: No spinal tenderness. No costovertebral tenderness. Full range of motion. Female : Normal external genitalia. Skin: Warm, dry with normal turgor. Normal color with no rashes, no lesions, and no evidence of cellulitis. MS/ Extremity: Pulses equal, no cyanosis. Neurovascular intact. Full, normal range of motion., bilateral aka Neuro: Awake and alert, GCS 15, oriented to person, place, time, and situation. Cranial nerves II-XII grossly intact. Motor strength 5/5 in all extremities. Sensory grossly intact. Cerebellar exam normal. Normal gait. Psych: Awake, alert, with orientation to person, place and time. Behavior, mood, and affect are within normal limits. 10:48 Cardiovascular: Rate: tachycardic, actual rate is 125 bpm, Rhythm: irregularly irregular, Pulses: Pulses are 4+ in bilateral radial, brachial, femoral, popliteal, posterior tibial and and dorsalis pedis arteries.. Heart sounds: normal, normal S1and S2, no S3 or S4, no murmur, no rub, no gallop, Edema: is not appreciated, JVD: is not appreciated, 10:48 ECG was reviewed by the Attending Physician. 10:48 Musculoskeletal/extremity: Circulation is intact in all extremities. Sensation intact. Compartment Syndrome exam of affected extremity: is normal. Weight bearing: DVT Exam: No signs of deep vein thrombosis. no pain, no swelling, no tenderness, negative Homans' sign noted on exam, no appreciated bluish discoloration, no erythema, no increased warmth, Vital Signs: 10:32 BP 144 / 104; Pulse 125; Resp 20 S; Temp 97.9(O); Pulse Ox 99% on R/A; Weight 69.4 kg kc6 (R); Height 5 ft. 6 in. (R); Pain 0/10; 10:39 BP 137 / 95; Pulse 121; Resp 15; Pulse Ox 99% ; jl7 10:45 BP 144 / 106; Pulse 120; jl7 10:53 BP 135 / 99; Pulse 116; jl7 11:00 BP 119 / 94; Pulse 124; Resp 17; Pulse Ox 97% ; jl7 11:30 BP 148 / 96; Pulse 120; Resp 17; Pulse Ox 100% ; Pain 0/10; jl7 12:00 BP 130 / 99; Pulse 121; Resp 18; Pulse Ox 99% ; jl7 10:32 Body Mass Index 24.69 (69.40 kg, 167.64 cm) 6 10:32 Pain Scale: Adult kc6 11:30 Pain Scale: Adult jl7 [place] Coma Score: 10:48 Eye Response: spontaneous(4). Motor Response: obeys commands(6). Verbal Response: mary oriented(5). Total: 15. MDM: 10:14 Medical Screening Exam initiated mary 10:52 HEART Score: History: Moderately Suspicious (1), ECG: Non specific repolarization mary disturbance / LBTB / PM (1), Age: > or = 65 years (2), Risk Factors: > or = 3 Risk factors for atherosclerotic disease (2), [Hypercholesterolemia] [Hypertension] [+ Family HX] Troponin: < or = 1 x Normal Limit (0). The patient was given aspirin in the Emergency Department. Data reviewed: vital signs, nurses notes, EMS record, lab test result(s), EKG, radiologic studies, plain films. Consideration of Admission/Observation Patient was admitted/placed on observation. Escalation of care including admission/observation considered. I considered the following discharge prescriptions or medication management in the emergency department Medications were administered in the Emergency Department. See MAR. Test considered but Not performed: Ultrasound no 2 d echo. 03/02 10:15 Order name: Basic Metabolic Panel; Complete Time: 12:04 mary 03/02 10:15 Order name: CBC with Diff; Complete Time: 11:16 mary 03/02 10:15 Order name: LFT's; Complete Time: 12:04 mary 03/02 10:15 Order name: Magnesium; Complete Time: 12:04 mary 03/02 10:15 Order name: NT PRO-BNP; Complete Time: 12:04 mary 03/02 10:15 Order name: PT-INR; Complete Time: 11:16 mary 03/02 10:15 Order name: Troponin HS; Complete Time: 12:04 mary 03/02 10:15 Order name: Urinalysis w/ reflexes; Complete Time: 12:04 mary 03/02 10:15 Order name: TSH; Complete Time: 12:04 mary 03/02 12:05 Order name: Basic Metabolic Panel EDMS 03/02 12:05 Order name: Basic Metabolic Panel EDMS 03/02 12:05 Order name: Basic Metabolic Panel EDMS 03/02 12:05 Order name: Basic Metabolic Panel EDMS 03/02 12:05 Order name: CBC with Automated Diff EDMS 03/02 12:05 Order name: CBC with Automated Diff EDMS 03/02 12:05 Order name: CBC with Automated Diff EDMS 03/02 12:05 Order name: CBC with Automated Diff EDMS 03/02 12:05 Order name: Magnesium EDMS 03/02 12:05 Order name: Magnesium EDMS 03/02 12:05 Order name: Magnesium EDMS 03/02 12:05 Order name: Magnesium EDMS 03/02 12:05 Order name: Troponin High Sensitivity EDMS 03/02 12:05 Order name: Troponin High Sensitivity EDMS 03/02 12:05 Order name: Troponin High Sensitivity EDMS 03/02 10:15 Order name: XRAY Chest (1 view); Complete Time: 11:24 [facility] 03/02 12:05 Order name: Echo with Doppler EDDE 03/02 10:15 Order name: Cardiac monitoring; Complete Time: 10:26 mary 03/02 10:15 Order name: EKG - Nurse/Tech; Complete Time: : mary 03/02 10:15 Order name: IV Saline Lock; Complete Time: 10:36 [facility] 03/02 10:15 Order name: Labs collected and sent; Complete Time: 10:36 [facility] 03/02 10:15 Order name: O2 Per Protocol; Complete Time: : [facility] 03/02 10:15 Order name: O2 Sat Monitoring; Complete Time: 10:26 [facility] EC:48 Rate is 127 beats/min. Rhythm is irregularly irregular. QRS Simla is Normal. [place] interval mary is normal. QRS interval is normal. QT interval is normal. No Q waves. T waves are Normal. No ST changes noted. Clinical impression: Atrial Fibrillation. Interpreted by me. Reviewed by me. Administered Medications: 10:35 Drug: NS 0.9% IV 500 ml 500 ml IV at 1 bolus once; to be given as a bolus over 30 jl7 minutes Volume: 500 ml; Route: IV; Rate: 1 bolus; Site: left antecubital; 11:05 Follow up: Response: No adverse reaction; IV Status: Completed infusion; IV Intake: jl7 500ml 10:38 Drug: Metoprolol IVP 5 mg IVP every 5 minutes; Hold for SBP < 100 or HR < 60. x3 Route: jl7 IVP; Site: left antecubital; 10:40 Drug: Magnesium Sulfate IVPB 1 grams IVPB once over 1 hrs Route: IVPB; Infused Over: 1 jl7 hrs; Site: left antecubital; 11:58 Follow up: Response: No adverse reaction; IV Status: Completed infusion; IV Intake: kc6 100ml 10:43 Drug: Metoprolol IVP 5 mg IVP every 5 minutes; Hold for SBP < 100 or HR < 60. x3 Route: jl7 IVP; Site: left antecubital; 10:43 Follow up: Response: Cardiac rhythm is unchanged jl7 10:45 Drug: NS 0.9% IV 500 ml 500 ml IV at 125 ml/hr once Volume: 500 ml; Route: IV; Rate: jl7 125 ml/hr; Site: left antecubital; 12:00 Follow up: IV Status: Infusion continued upon admission jl7 10:50 Drug: Metoprolol IVP 5 mg IVP every 5 minutes; Hold for SBP < 100 or HR < 60. x3 Route: jl7 IVP; Site: left antecubital; 10:50 Follow up: Response: No adverse reaction; Cardiac rhythm is unchanged jl7 11:07 Drug: Enoxaparin Sub-Q 1 mg/kg Sub-Q once Route: Sub-Q; Site: abdomen; jl7 12:00 Follow up: Response: No adverse reaction jl7 11:18 Drug: Digoxin IVP 0.5 mg IVP once Route: IVP; Site: left antecubital; jl7 11:18 Drug: Metoprolol PO 50 mg PO once Route: PO; jl7 12:06 Drug: Sotalol PO 80 mg PO once Route: PO; kc6 Disposition Summary: 03/02/25 11:35 Hospitalization Ordered Notes: Hospitalization Status: Inpatient Admission mary Provider: Nik Hurtado cha [facility] mary Condition: Stable mary Problem: new mary Symptoms: have improved mary Bed/Room Type: Standard mayr Room Assignment: 218(03/02/25 12:10) sp Diagnosis - Persistent atrial fibrillation - with RVR mary Forms: - Medication Reconciliation Form mary - SBAR form mary - Leadership Thank You Letter mary Signatures: Dispatcher [employer] David Nava MD MD cha Pinkerton, Shawna sp Attema, Lee, CHILDRENS CLUB ATTENDANT-C CHILDRENS CLUB ATTENDANT-Cla1 Lili Pradhan RN RN jl7 Meghan Hughes RN RN kc6 Corrections: (The following items were deleted from the chart) 10:15 10:15 Chest Single View+[id number].[email or web address] ordered. EDMS EDMS 12:10 11:35 mary sp
--- NOTE | 2025-03-02 11:35 | ER ---
Nurse's Notes [facility] Name: Briana Jean Age: 69 yrs Sex: Female : 1955 Arrival Date: 03/02/2025 Time: 10:09 Bed 5 Private MD: Diagnosis: Persistent atrial fibrillation-with RVR Presentation: 03/02 10:32 Chief complaint: Patient states: sudden onset palpitations beginning at 0700. stats she kc6 took x2 81mg Aspirin, x1 100mg Losartan, and x1 50mg Metoprolol TRIAGE REGISTER NURSE. Coronavirus screen: At this time, the client does not indicate any symptoms associated with coronavirus-19. Ebola Screen: No symptoms or risks identified at this time. Initial Sepsis Screen: Does the patient meet any 2 criteria? HR > 90 bpm. Does the patient have a suspected source of infection? No. Patient's initial sepsis screen is negative. Risk Assessment: Do you want to hurt yourself or someone else? Patient reports no desire to harm self or others. Onset of symptoms was March 02, 2025. 10:32 Method Of Arrival: Wheelchair kc6 10:32 Acuity: DEIRDRE 2 kc6 Historical: - Allergies: 10:34 Latex; kc6 10:34 Morphine; kc6 - Home Meds: 10:56 aspirin 81 mg oral tablet [Active]; atorvastatin 40 mg Oral tab 1 tab once daily jl7 [Active]; losartan 100 mg oral tablet 1 tab daily [Active]; metoprolol succinate 100 mg oral Tablet, Extended Release 24 hr 0.5 tabs every 12 hours [Active]; - PMHx: 10:34 Hypertensive disorder; Atrial fibrillation; Hypercholesterolemia; endometrial cancer; kc6 - PSHx: 10:34 hysterectomy; Appendectomy; cardiac ablation with loop recorder; kc6 - Immunization history:: Adult Immunizations up to date. - Infectious Disease History:: Denies. - Social history:: Smoking status: Patient denies any tobacco usage or history of. - Family history:: not pertinent. Screenin:35 [facility] ED Fall Risk Assessment (Adult) History of falling in the last 3 months, kc6 including since admission No falls in past 3 months (0 pts) Confusion or Disorientation No (0 pts) Intoxicated or Sedated No (0 pts) Impaired Gait No (0 pts) Mobility Assist Device Used No (0 pt) Altered Elimination No (0 pt) Score/Fall Risk Level 0 - 2 = Low Risk Oriented to surroundings, Maintained a safe environment, Educated pt \T\ family on fall prevention, incl call for assistance when getting out of bed. Abuse screen: Denies threats or abuse. Denies injuries from another. Nutritional screening: No deficits noted. Tuberculosis screening: No symptoms or risk factors identified. Assessment: 10:15 General: Appears in no apparent distress. uncomfortable, Behavior is calm, cooperative, jl7 appropriate for age. Pain: Denies pain. Neuro: Rachel Agitation-Sedation Scale (RASS): 0 - Alert and Calm Level of Consciousness is awake, alert, obeys commands, Oriented to person, place, time, situation. Cardiovascular: Reports palpitations, since 0700, palpitations woke pt up Heart tones present Patient's skin is warm and dry. Rhythm is atrial fibrillation with rapid ventricular response With PVC's. Respiratory: Airway is patent Respiratory effort is even, unlabored, Respiratory pattern is regular, symmetrical. Derm: Skin is pink, warm \T\ dry. 11:00 Reassessment: Patient appears in no apparent distress at this time. No changes from jl7 previously documented assessment. Patient and/or family updated on plan of care and expected duration. Pain level reassessed. Patient is alert, oriented x 3, equal unlabored respirations, skin warm/dry/pink. 12:00 Reassessment: Patient appears in no apparent distress at this time. No changes from jl7 previously documented assessment. Patient and/or family updated on plan of care and expected duration. Pain level reassessed. Patient is alert, oriented x 3, equal unlabored respirations, skin warm/dry/pink. Patient is alert/active/playful, equal unlabored respirations, skin warm/dry/pink. Vital Signs: 10:32 BP 144 / 104; Pulse 125; Resp 20 S; Temp 97.9(O); Pulse Ox 99% on R/A; Weight 69.4 kg kc6 (R); Height 5 ft. 6 in. (R); Pain 0/10; 10:39 BP 137 / 95; Pulse 121; Resp 15; Pulse Ox 99% ; jl7 10:45 BP 144 / 106; Pulse 120; jl7 10:53 BP 135 / 99; Pulse 116; jl7 11:00 BP 119 / 94; Pulse 124; Resp 17; Pulse Ox 97% ; jl7 11:30 BP 148 / 96; Pulse 120; Resp 17; Pulse Ox 100% ; Pain 0/10; jl7 12:00 BP 130 / 99; Pulse 121; Resp 18; Pulse Ox 99% ; jl7 10:32 Body Mass Index 24.69 (69.40 kg, 167.64 cm) kc6 10:32 Pain Scale: Adult kc6 11:30 Pain Scale: Adult jl7 [place] Coma Score: 10:48 Eye Response: spontaneous(4). Motor Response: obeys commands(6). Verbal Response: mary oriented(5). Total: 15. ED Course: 10:13 Patient arrived in ED. al6 10:14 David Dial MD is Attending Physician. mary 10:26 EKG done, by ED staff, reviewed by David Dial MD. em1 10:30 Lili Pradhan, ZACHARY is Primary Nurse. jl7 10:30 Initial lab(s) drawn, by hi, sent to lab. Inserted saline lock: 20 gauge in left jl7 antecubital area, using aseptic technique. Blood collected. Flushed with 10 mL NS. 10:34 Triage completed. kc6 10:34 Arm band placed on. kc6 10:35 Patient maintains SpO2 saturation greater than 95% on room air. kc6 10:35 Patient has correct armband on for positive identification. Placed in gown. Bed in low kc6 position. Call light in reach. Side rails up X 1. Adult w/ patient. pvc monitor on. Pulse ox on. NIBP on. Door closed. Noise minimized. Lights dimmed. Warm blanket given. Pillow given. Verbal reassurance given. 10:58 XRAY Chest (1 view) In Process Unspecified. EDMS 11:03 Provided Education on: use of call [place]. jl7 11:34 Nik Hurtado MD is Hospitalizing Provider. mary 12:29 Inserted saline lock: 22 gauge in left forearm, using aseptic technique. Flushed with jl7 10 mL NS. 12:31 No provider procedures requiring assistance completed. Patient admitted, IV remains in jl7 place. intact, No redness/swelling at site. Administered Medications: 10:35 Drug: NS 0.9% IV 500 ml 500 ml IV at 1 bolus once; to be given as a bolus over 30 jl7 minutes Volume: 500 ml; Route: IV; Rate: 1 bolus; Site: left antecubital; 11:05 Follow up: Response: No adverse reaction; IV Status: Completed infusion; IV Intake: jl7 500ml 10:38 Drug: Metoprolol IVP 5 mg IVP every 5 minutes; Hold for SBP < 100 or HR < 60. x3 Route: jl7 IVP; Site: left antecubital; 10:40 Drug: Magnesium Sulfate IVPB 1 grams IVPB once over 1 hrs Route: IVPB; Infused Over: 1 jl7 hrs; Site: left antecubital; 11:58 Follow up: Response: No adverse reaction; IV Status: Completed infusion; IV Intake: kc6 100ml 10:43 Drug: Metoprolol IVP 5 mg IVP every 5 minutes; Hold for SBP < 100 or HR < 60. x3 Route: jl7 IVP; Site: left antecubital; 10:43 Follow up: Response: Cardiac rhythm is unchanged jl7 10:45 Drug: NS 0.9% IV 500 ml 500 ml IV at 125 ml/hr once Volume: 500 ml; Route: IV; Rate: jl7 125 ml/hr; Site: left antecubital; 12:00 Follow up: IV Status: Infusion continued upon admission jl7 10:50 Drug: Metoprolol IVP 5 mg IVP every 5 minutes; Hold for SBP < 100 or HR < 60. x3 Route: jl7 IVP; Site: left antecubital; 10:50 Follow up: Response: No adverse reaction; Cardiac rhythm is unchanged jl7 11:07 Drug: Enoxaparin Sub-Q 1 mg/kg Sub-Q once Route: Sub-Q; Site: abdomen; jl7 12:00 Follow up: Response: No adverse reaction jl7 11:18 Drug: Digoxin IVP 0.5 mg IVP once Route: IVP; Site: left antecubital; jl7 11:18 Drug: Metoprolol PO 50 mg PO once Route: PO; jl7 12:06 Drug: Sotalol PO 80 mg PO once Route: PO; kc6 Medication: 10:56 VIS not applicable for this client. jl7 Intake: 11:05 IV: 500ml; Total: 500ml. jl7 11:58 IV: 100ml; Total: 600ml. kc6 Outcome: 11:35 Decision to Hospitalize by Provider. mary 12:31 Admitted to Tele accompanied by tech, room 218, with chart, jl7 12:31 Condition: stable 12:31 Instructed on the need for admit, Demonstrated understanding of instructions, 12:57 Patient left the ED. jl7 Signatures: Dispatcher [employer] EDDavid Granda MD MD cha Martinez, Eric em1 Leal, Jahala RN RN jl7 Meghan Hughes RN RN kc6 Monica Schmidt
[2025-03-02 11:36] LABS: Bilirubin Direct < 0.2 mg/dL (0-0.2); Bilirubin Indirect, Calculated 0.4 mg/dL (0.2-0.8)
[2025-03-02 11:57] LABS: Specific Gravity 1.005 (1.005-1.030); Sqamous Epithelial <5 /HPF (None Seen); Urine Bacteria <20 /HPF (<20); Urine Bilirubin NEGATIVE (Negative); Urine Blood Negative (Negative); Urine Clarity Clear (Clear); Urine Color Colorless (Yellow); Urine Crystals Unidentified Few /HPF (None Seen); Urine Culture Reflex Order NOT NEEDED; Urine Glucose NEGATIVE (Negative); Urine Ketones NEGATIVE (Negative); Urine Microscopic Reflex YN ORDER UMIC; Urine Nitrite NEGATIVE (Negative); Urine Protein NEGATIVE (Negative); Urine RBC <5 /HPF (None Seen); Urine Urobilinogen Normal (Normal); Urine WBC <5 /HPF (<5); Urine Yeast (Budding) Trace /HPF (None Seen); Urine pH 7.5 (5.0-7.0)
[2025-03-02] MEDS ORDERED: ACETAMINOPHEN 325 MG TABLET PO PRN (11:59)
[2025-03-02] MEDS ORDERED: METOPROLOL TARTRATE 5 MG/5 ML INJ IV PRN (11:59)
--- NOTE | 2025-03-02 12:14 | P.HP ---
Certification for Inpatient Patient admitted to: Observation With expected LOS: <2 Midnights Patient will require the following post-hospital care: None Practitioner: I am a practitioner with admitting privileges, knowledge of patient current condition, hospital course, and medical plan of care. Services: Services provided to patient in accordance with Admission requirements found in Title 42 Section 412.3 of the Code of Federal Regulations Patient History Date of Service: 03/02/25 Reason for admission: A-fib RVR History of Present Illness: 69-year-old female with history of paroxysmal atrial fibrillation, hypertension, hyperlipidemia presents to the emergency department chief complaint of palpitations. She reports that she woke this morning and can tell that she was in atrial fibrillation, checked with her Apple Watch which confirmed this and for that reason she came to the hospital for further management. On arrival her heart rate was between 110 and 120. She had an ablation at [facility] in [address] Leone and had been in sinus rhythm since then, at home she takes Toprol XL 50 mg twice daily as well as a daily aspirin. She reports that she had an appointment with her finance consultant February 12, she has a loop recorder was told she was having so few episodes of A-fib that she could space out her appointments. She was evaluated here in the emergency department her labs were significant for a BNP of 994, otherwise unremarkable. Chest x-ray was negative for acute findings EKG shows atrial fibrillation with a rate of around 120 and a QTc of 465. Discussed case with cardiology who recommends starting sotalol and keeping n.p.o. after midnight for possible SAVANNA cardioversion. She did receive therapeutic Lovenox in ED. Allergies latex Allergy (Severe, Verified 06/16/21 21:35) Swollen lips morphine Allergy (Verified 02/25/22 05:09) Itching Home Medications: Atorvastatin Calcium 40 mg PO BEDTIME 02/24/21 Losartan Potassium 50 mg PO DAILY 02/25/22 Apixaban [Eliquis] 5 mg PO BID #60 tablet 03/01/22 Dronedarone [Multaq*] 400 mg PO BID #60 tab 03/01/22 Nitrofuran Macro [Macrobid] 100 mg PO BID #10 cap 07/07/22 - Past Medical/Surgical History Diabetic: No -: A-fib -: Mitral Valve Prolapse -: High Cholesterol -: Endometrial CA -: kidney stones -: Hypertension -: Appy -: Left breast lumpectomy -: hysterectomy Psychosocial/ Personal History: Patient lives at home with . - Family History Father -: Heart disease, Hypertension Mother -: Heart disease, Hypertension Brother -: Other (see notes) - Social History Alcohol use: No CD- Drugs: No Caffeine use: No Place of Residence: Home Review of Systems 10-point ROS is otherwise unremarkable Cardiovascular: Palpitations Physical Examination - Physical Exam General: Alert, In no apparent distress, Oriented x3 HEENT: Atraumatic, PERRLA, EOMI Neck: Supple, 2+ carotid pulse no bruit, No LAD Respiratory: Clear to auscultation bilaterally, Normal air movement Cardiovascular: Normal S1 S2, Irregular heart rate/rhythm Gastrointestinal: Normal bowel sounds Musculoskeletal: No tenderness Integumentary: No rashes Neurological: Normal speech, Normal strength at 5/5 x4 extr, Normal affect - Studies Laboratory Data (last 24 hrs) 03/02/25 03/02/25 03/02/25 10:30 10:30 10:30 WBC 8.10 Hgb 14.4 Hct 42.5 Plt Count 315 PT 12.4 INR 1.09 Sodium 136 Potassium 3.6 BUN 17 Creatinine 1.03 H Glucose 137 H Magnesium 2.1 Total Bilirubin 0.6 AST 16 ALT 21 Alkaline Phosphatase 121 H Assessment and Plan - Plan Assessment: Paroxysmal atrial fibrillation with rapid ventricular response History of mitral valve prolapse Hypertension Hyperlipidemia Plan: Paroxysmal atrial fibrillation with rapid ventricular response History of mitral valve prolapse Had an ablation with 2022 Has not had episodes of A-fib since then Currently taking Toprol-XL 50 mg twice daily Has loop recorder in place, has not had recent A-fib Discussed with cardiology, will start sotalol, DC metoprolol N.p.o. after midnight for possible SAVANNA cardioversion As needed IV Lopressor for rate control Hypertension Hyperlipidemia Continue statin, losartan DVT PPX: Eliquis Code status: Full Discharge Plan: Home Plan to discharge in: 24 Hours - Advance Directives Does patient have a Living Will: No Does patient have a Durable POA for Healthcare: No - Code Status/Comfort Care Code Status Assessed: Yes (Full code) Critical Care: No Time Spent Managing Pts Care (In Minutes): 65
[2025-03-02 13:05] VITALS: BMI 24.8
[2025-03-02 13:20] VITALS: O2SAT 99
[2025-03-02] MEDS: NA CHLORIDE 0.9% 1,000 ML IV SCH (13:36)
[2025-03-02] MEDS: SOTALOL HCL 80 MG TAB PO SCH (17:32)
[2025-03-02] MEDS: APIXABAN 5 MG TABLET PO SCH (20:21)
[2025-03-02] MEDS: ATORVASTATIN 40 MG TAB PO SCH (20:21)
[2025-03-03 06:01] LABS: Absolute Basophils 0.1 K/uL (0-0.5); Absolute Eosinophils 0.1 K/uL (0-0.5); Absolute Lymphocytes (CBC) 1.6 K/uL (0.7-4.9); Absolute Monocytes 0.6 K/uL (0.1-1.3); Basophils % 1.3 % (0-1.3); Eosinophils % 2.5 % (0-4.4); Hematocrit 37.7 % (36.0-45.0); Lymphocytes % 29.9 % (15.3-44.8); MCH 30.8 pg (27.0-35.0); MCHC 34.4 g/dL (32.0-36.0); MCV 89.4 fL (80-100); MPV 8.4 fL (7.6-11.3); Monocytes % 10.6 % (3.3-12.3); Neutrophils % 55.7 % (41.7-73.7); Nucleated Red Blood Cells % 0.6 % (0-0); Platelets 305 thou/uL (152-406); RBC Red Blood Cell Count 4.22 M/uL (3.86-4.86); Red Cell Distribution Width 13.5 % (12.1-15.2)
[2025-03-03 06:15] LABS: Anion Gap 6.3 mEq/L (5.0-15.0); Troponin High Sensitivity 9.3 pg/mL (<58.9)
[2025-03-03 06:16] LABS: Magnesium 2.4 mg/dL (1.6-2.4); Potassium 4.3 mEq/L (3.5-5.1)
--- NOTE | 2025-03-03 08:29 | P.DS ---
Admission Date: 03/02/25 Discharge Date: 03/03/25 Disposition: ROUTINE DISCHARGE Discharge Condition: GOOD Reason for Admission: A-fib RVR Brief History of Present Illness: 69-year-old female with history of paroxysmal atrial fibrillation, hypertension, hyperlipidemia presents to the emergency department chief complaint of palpitations. She reports that she woke this morning and can tell that she was in atrial fibrillation, checked with her Apple Watch which confirmed this and for that reason she came to the hospital for further management. On arrival her heart rate was between 110 and 120. She had an ablation at [facility] in [address] Leone and had been in sinus rhythm since then, at home she takes Toprol XL 50 mg twice daily as well as a daily aspirin. She reports that she had an appointment with her bond manager February 12, she has a loop recorder was told she was having so few episodes of A-fib that she could space out her appointments. She was evaluated here in the emergency department her labs were significant for a BNP of 994, otherwise unremarkable. Chest x-ray was negative for acute findings EKG shows atrial fibrillation with a rate of around 120 and a QTc of 465. Discussed case with cardiology who recommends starting sotalol and keeping n.p.o. after midnight for possible SAVANNA cardioversion. She did receive therapeutic Lovenox in ED. Hospital Course: Assessment: Paroxysmal atrial fibrillation with rapid ventricular response History of mitral valve prolapse Hypertension Hyperlipidemia Patient was admitted to the hospital for A-fib RVR. She has a history of an ablation about 2 years ago and had been in normal sinus rhythm since then. She presented with a heart rate of around 120 and A-fib. Case was discussed with cardiology her metoprolol was discontinued and she was started on sotalol. She has been in sinus rhythm overnight. Her QTc was evaluated after her third dose of sotalol and was 425. She stable for discharge and outpatient follow-up with cardiology. Please stop taking metoprolol Start taking sotalol 80 mg by mouth twice daily Also you will be restarted on Eliquis 5 mg twice daily Follow-up with cardiologyDr. Oscar Other home medications to be continued as previously taken Vital Signs/Physical Exam: Temp Pulse Resp BP Pulse Ox 98.5 F 79 16 152/78 H 97 03/03/25 04:00 03/03/25 04:00 03/03/25 04:00 03/03/25 04:00 03/03/25 04:00 General: Alert, In no apparent distress, Oriented x3 HEENT: Atraumatic, PERRLA Neck: Supple, JVD not distended Respiratory: Clear to auscultation bilaterally, Normal air movement Cardiovascular: Regular rate/rhythm, Normal S1 S2 Gastrointestinal: Normal bowel sounds, No tenderness Musculoskeletal: No tenderness Integumentary: No rashes Neurological: Normal speech, Normal affect Laboratory Data at Discharge: WBC 5.30 thou/uL (4.3-10.9) 03/03/25 05:31 Hgb 13.0 g/dL (12.0-15.0) D 03/03/25 05:31 Hct 37.7 % (36.0-45.0) 03/03/25 05:31 Plt Count 305 thou/uL (152-406) 03/03/25 05:31 PT 12.4 SECONDS (10-13.0) 03/02/25 10:30 INR 1.09 03/02/25 10:30 Sodium 141 mEq/L (136-145) D 03/03/25 05:31 Potassium 4.3 mEq/L (3.5-5.1) D 03/03/25 05:31 BUN 13 mg/dL (7-18) 03/03/25 05:31 Creatinine 0.74 mg/dL (0.55-1.02) 03/03/25 05:31 Glucose 104 mg/dL (74-106) 03/03/25 05:31 Magnesium 2.4 mg/dL (1.6-2.4) 03/03/25 05:31 Total Bilirubin 0.6 mg/dL (0.2-1.0) 03/02/25 10:30 AST 16 U/L (15-37) 03/02/25 10:30 ALT 21 U/L (13-56) 03/02/25 10:30 Alkaline Phosphatase 121 U/L (45-117) H 03/02/25 10:30 Home Medications: Atorvastatin Calcium 40 mg PO BEDTIME 02/24/21 Losartan Potassium 100 mg PO DAILY 02/25/22 Aspirin [Aspirin EC 81 MG] 1 tab PO BEDTIME 03/02/25 Gabapentin [Neurontin*] 100 mg PO DAILY PRN 03/02/25 Apixaban [Eliquis] 5 mg PO BID #60 tab 03/03/25 Sotalol HCl [Betapace*] 80 mg PO BID 6AM 6PM #60 tab 03/03/25 New Medications: Sotalol HCl [Betapace*] 80 mg PO BID 6AM 6PM #60 tab Apixaban [Eliquis] 5 mg PO BID #60 tab Physician Discharge Instructions: Patient was admitted to the hospital for A-fib RVR. She has a history of an ablation about 2 years ago and had been in normal sinus rhythm since then. She presented with a heart rate of around 120 and A-fib. Case was discussed with cardiology her metoprolol was discontinued and she was started on sotalol. She has been in sinus rhythm overnight. Her QTc was evaluated after her third dose of sotalol and was 425. She stable for discharge and outpatient follow-up with cardiology. Please stop taking metoprolol Start taking sotalol 80 mg by mouth twice daily Also you will be restarted on Eliquis 5 mg twice daily Follow-up with cardiologyDrDavid Oscar Other home medications to be continued as previously taken Diet: AHA Activity: Ad rosa Followup: Ted Oscar MD [ACTIVE - CAN ADMIT] - 1 Week Lan Mckeon MD [Primary Care Provider] - 1-2 Weeks Time spent managing pt's care (in minutes): 46
[2025-03-03] MEDS: LOSARTAN POTASSIUM 50 MG TABLET PO SCH (08:35)
[2025-03-03 08:54] VITALS: BP 162/91; TEMP 98.1
== END 2025-03-03 09:22 | disposition home or self-care (01) ==
LOC: ER 10:09 → ERHOLD 11:59 → 2ND 12:23
PROVIDERS: ADMIT Hospitalist; ATTEND Hospitalist
DX: I48.0 Paroxysmal atrial fibrillation (principal); I10 Essential (primary) hypertension; E78.5 Hyperlipidemia, unspecified
CPT/HCPCS: 93005 ×2; 85025 ×2; 81001; 80048 ×2; 36415; 83735 ×2; 85610; 80076; 84443; 84484 ×2; 83880; 71045; J3475; J1160; J7030 ×3; 96365; 96372; 96375; 99285; G0378